=== PATIENT | male | born 1970 | race Hispanic/Latino ===

== ENCOUNTER 2016-12-12 12:21 | Inpatient (IN) | payer MEDICARE, MEDICAID, OTHER ==
[2016-12-12 12:46] VITALS: BMI 26.6
--- NOTE | 2016-12-12 13:21 | ED PDOC ---
Arrival/HPI - General Chief Complaint: Weakness/Neurological Deficit Time Seen by Provider: 12/12/16 12:32 Historian: Patient - History of Present Illness Narrative History of Present Illness (Text): 12/12/16 12:57 Fabian Feliciano is a 46 year old male, whose past medical history includes bipolar, ETOH abuse, hepatitis C, and previous etoh abuse who presents to the ED for right arm and leg weakness for 3 days. Patient reports 3 days ago upon waking up he felt weakness in his right arm and then right leg upon rising, causing him to fall; he reports hitting his head but denies any LOC. Patient also reports right sided neck pain. Patient otherwise denies any headache, chest pain, shortness of breath, nausea, vomiting, abdominal pain, urinary/ bowel changes, vision changes or other associated symptoms. PMD: Cesar Kamara MD Time/Duration: < week (3 days) Symptom Onset: Sudden Activities at Onset: Light Context: Home Past Medical History - Provider Review Nursing Documentation Reviewed: Yes - Infectious Disease Hx of Infectious Diseases: None - Tetanus Immunization Tetanus Immunization: Unknown - Past Medical History Past Medical History: Unable to Obtain - Cardiac Hx Cardiac Disorders: No Hx Hypertension: No - Pulmonary Hx Respiratory Disorders: No Hx Tuberculosis: No - Neurological Hx Neurological Disorder: No HX Cerebrovascular Accident: No Hx Seizures: No - HEENT Hx HEENT Disorder: No - Renal Hx Renal Disorder: No - Endocrine/Metabolic Hx Endocrine Disorders: No - Hematological/Oncological Hx Blood Disorders: No Hx Cancer: No - Integumentary Hx Dermatological Disorder: No - Musculoskeletal/Rheumatological Hx Musculoskeletal Disorders: No Hx Falls: No - Gastrointestinal Hx Gastrointestinal Disorders: Yes (gi bleed) Hx Gastroesophageal Reflux: Yes - Genitourinary/Gynecological Hx Genitourinary Disorders: No Hx Sexually Transmitted Diseases: No - Psychiatric Hx Psychophysiologic Disorder: Yes Hx Anxiety: Yes Hx Bipolar Disorder: Yes Hx Depression: Yes Hx Substance Use: No (pt denies) - Past Surgical History Past Surgical History: Unable to Obtain - Surgical History Hx Gastric Bypass Surgery: Yes Hx Orthopedic Surgery: Yes (left rotator cuff x 3) - Anesthesia Hx Anesthesia: Yes Hx Anesthesia Reactions: Yes (severe vomiting) Hx Malignant Hyperthermia: No - Suicidal Assessment Feels Threatened In Home Enviroment: No Family/Social History - Physician Review Nursing Documentation Reviewed: Yes Family/Social History: No Known Family HX Smoking Status: Heavy Smoker > 10 Cigarettes Daily Hx Alcohol Use: No (pt denies) Hx Substance Use: No (pt denies) Substance used: oxy Allergies/Home Meds Allergies/Adverse Reactions: Allergies No Known Allergies Allergy (Verified 12/12/16 12:45) Home Medications: Home Meds Medication Instructions Recorded Confirmed Fluoxetine HCl [Prozac] 40 mg PO DAILY 12/12/16 12/12/16 Quetiapine Fumarate [Seroquel] 50 mg PO HS 12/12/16 12/12/16 buPROPion XL [Wellbutrin XL] 150 mg PO DAILY 12/12/16 12/12/16 clonazePAM [Klonopin] 1 mg PO TID 12/12/16 12/12/16 Review of Systems - Physician Review All systems were reviewed & negative as marked: Yes - Review of Systems Constitutional: Normal. absent: Fevers Eyes: absent: Vision Changes ENT: Normal Respiratory: Normal. absent: SOB, Cough Cardiovascular: Normal. absent: Chest Pain Gastrointestinal: Normal. absent: Abdominal Pain, Diarrhea, Nausea, Vomiting, Appetite Changes Genitourinary Male: Normal. absent: Dysuria, Frequency, Hematuria, Urinary Output Changes Musculoskeletal: Neck Pain (Right Sided), Other (Right Leg and Arm Weakness; Right Calf Swelling) Skin: Normal Neurological: Focal Weakness. absent: Headache, Dizziness Endocrine: Normal Hemo/Lymphatic: Normal Psychiatric: Normal Physical Exam Vital Signs Reviewed: Yes Vital Signs Temp Pulse Resp BP Pulse Ox 12/12/16 13:00 90 16 147/90 98 12/12/16 12:44 99 F 89 16 147/90 100 Temperature: Afebrile Blood Pressure: Normal Pulse: Regular Respiratory Rate: Normal Appearance: Positive for: Well-Appearing, Non-Toxic, Comfortable Pain Distress: None Mental Status: Positive for: Alert and Oriented X 3 Finger Stick Blood Glucose: 89 - Systems Exam Head: Present: Atraumatic, Normocephalic Pupils: Present: PERRL Extroacular Muscles: Present: EOMI Conjunctiva: Present: Normal Mouth: Present: Moist Mucous Membranes Pharnyx: Present: Normal. No: ERYTHEMA Neck: Present: Normal Range of Motion. No: JVD Respiratory/Chest: Present: Clear to Auscultation, Good Air Exchange. No: Respiratory Distress, Accessory Muscle Use Cardiovascular: Present: Regular Rate and Rhythm, Normal S1, S2. No: Murmurs Abdomen: Present: Normal Bowel Sounds. No: Tenderness, Distention, Peritoneal Signs Upper Extremity: Present: Other (Patient refusing/unable to Elevate Right Arm). No: Edema Lower Extremity: Present: Normal Inspection, Swelling (Right Calf Swelling). No : Edema Neurological: Present: GCS=15, CN II-XII Intact, Speech Normal Skin: Present: Warm, Dry, Normal Color. No: Rashes Psychiatric: Present: Alert, Oriented x 3, Normal Insight, Normal Concentration Medical Decision Making ED Course and Treatment: 12/12/16 12:57 Impression: 46 year old male with right arm and leg weakness for 3 days. Differential Diagnosis include but are not limited to: CVA vs. Peripheral Neurological Etiologies vs. Psychosomatic disorder Plan: -- Head CT -- Chest X-ray -- LE Duplex -- Right Knee -- Labs, UA -- Reassess and disposition Prior Visits: Notes and results from previous visits were reviewed. Patient was last seen in the ED on 06/18/16 unresponsive. Progress Notes: 12/12/16 14:31 As per Dobby Loom Fixer, DVT negative. 12/12/2016 14:19:29 Procedure: CT HEAD WITHOUT CONTRAST. Dictator: ELIAS READ MD Impression: No acute intracranial abnormality. If there is a persistent focal neurologic deficit and an ongoing clinical concern for acute infarction, an MRI of the brain without intravenous contrast would be a more sensitive modality for evaluation of hyperacute/acute ischemic infarction. Mild global parenchymal volume loss advanced for the patient's age. 12/12/16 14:20 Procedure: Right Knee Radiographs. Dictator: ELIAS READ MD Impression: No acute fracture, dislocation or bone destruction. 12/12/2016 14:20 Procedure: Chest X-RAY Dictator: ELIAS READ MD Impression: No active pulmonary disease. 12/12/16 15:37 Patient with noted history. Patient on neuro exam is not elevating right arm but also seemed to avoid his head upon my raising it - NIHSS is 3 (based on R arm weakness) - it is 3 days old; not a tpa candidate. Patient's labs showing rhabdo of cpk >13K - will admit to the hospital for aggressive hydration. Discussed with Dr. Cesar Kamara for admission to his service. - Lab Interpretations Lab Results: 12/12/16 13:20 12/12/16 13:20 Lab Results 12/12/16 13:20: WBC 7.5 D, RBC 4.62, Hgb 13.8 L, Hct 39.9 L, MCV 86.4, MCH 29.9 , MCHC 34.6, RDW 14.9 H, Plt Count 231, MPV 10.4, Gran % 63.8, Lymph % (Auto) 25.3, Davis % (Auto) 9.2 H, Eos % (Auto) 1.6, Baso % (Auto) 0.1, Gran # 4.80, Lymph # 1.9, Davis # 0.7 H, Eos # 0.1, Baso # 0.01, PT 10.7, INR 0.99, APTT 25.0 , Sodium 136, Potassium 3.8, Chloride 100, Carbon Dioxide 28, Anion Gap 12, BUN 14, Creatinine 0.8, Est GFR ( Amer) > 60, Est GFR (Non-Af Amer) > 60, Random Glucose 92, Calcium 9.1, Magnesium 1.8, Total Bilirubin 1.1, AST 690 H, ALT 205 H, Alkaline Phosphatase 65, Lactate Dehydrogenase 2470 H, Total Creatine Kinase 30978 H, CK-MB (CK-2) 22.9 H, CK-MB (CK-2) % 0.2 L, Troponin I < 0.01, Total Protein 7.3, Albumin 3.8, Globulin 3.5, Albumin/Globulin Ratio 1.1 , Triglycerides 89, Cholesterol 143, LDL Cholesterol Direct 82, HDL Cholesterol 35, Lipase 35, Alcohol, Quantitative < 10 I have reviewed the lab results: Yes - RAD Interpretation Narrative RAD Interpretations (Text): 12/12/2016 14:19:29 Procedure: CT HEAD WITHOUT CONTRAST. Dictator: ELIAS READ MD FINDINGS: HEMORRHAGE: No intracranial hemorrhage. BRAIN: Burrell-white matter differentiation is preserved. There is no mass, mass effect or abnormal extra-axial fluid collection. VENTRICLES: There is mild global parenchymal volume loss and proportionate enlargement of the ventricles and cortical sulci, advanced for the patient's age. CALVARIUM: Unremarkable. PARANASAL SINUSES: Predominantly clear. MASTOID AIR CELLS: Predominantly clear. OTHER FINDINGS: None. Impression: No acute intracranial abnormality. If there is a persistent focal neurologic deficit and an ongoing clinical concern for acute infarction, an MRI of the brain without intravenous contrast would be a more sensitive modality for evaluation of hyperacute/acute ischemic infarction. Mild global parenchymal volume loss advanced for the patient's age. 12/12/16 14:20 Procedure: Right Knee Radiographs. Dictator: ELIAS READ MD FINDINGS: BONES: Bone alignment and mineralization are normal. There is no acute fracture or bone destruction. JOINTS: Normal. No osteoarthritis. JOINT EFFUSION: There is a small suprapatellar joint effusion. OTHER FINDINGS: None. Impression: No acute fracture, dislocation or bone destruction. 12/12/2016 14:20 Procedure: Chest X-RAY Dictator: ELIAS READ MD FINDINGS: LUNGS: The lungs are well inflated and clear. PLEURA: No significant pleural effusion identified. No pneumothorax apparent. CARDIOVASCULAR: Normal. OSSEOUS STRUCTURES: Status post left shoulder arthroplasty. VISUALIZED UPPER ABDOMEN: Normal. OTHER FINDINGS: None. Impression: No active pulmonary disease. Radiology Orders: 12/12/16 13:05 HEAD W/O CONTRAST [CT] Stat CHEST TWO VIEWS (PA/LAT) [RAD] Stat 12/12/16 13:07 KNEE W PATELLA RIGHT 3 VIEW [RAD] Stat DUPLEX LOWER EXTRM VEIN RIGHT [US] Stat Wrist Closer: Radiologist - EKG Interpretation EKG Interpretation (Text): 12/12/16 15:40 NSR @ 86; no ST/T changes; normal intervals, normal axis. - Medication Orders Current Medication Orders: Discontinued Medications Sodium Chloride (Sodium Chloride 0.9%) 1,000 mls @ 999 mls/hr IV .Q1H1M STA Stop: 12/12/16 15:34 Last Admin: 12/12/16 15:27 Dose: 999 MLS/HR eMAR Start Stop Document 12/12/16 15:27 [facility] (Rec: 12/12/16 15:28 [facility] [id number]) Intravenous Solution Start Date 12/12/16 Start Time 14:40 End Date 12/12/16 End time 15:40 Total Infusion Time 60 NIHSS Scale ([place]) Time Performed: 12:32 - How Severe is the Stoke Baseline Level of Consciousness: 0=Alert LOC to Questions: 0=Both comments correct LOC to commands: 0=Obeys both correctly Best Gaze: 0=Normal Visual: 0=No visual loss Facial: 0=Normal Motor Arm - Left: 0=No drift Motor Arm - Right: 3=No effort against gravity (falls immediately) Motor Leg - Left: 0=No drift Motor Leg - Right: 0=No drift Limb Ataxia: 0=Absent Sensory: 0=Normal Best Language: 0=No aphasia Dysarthia: 0=Normal articulation Extinction & Inattention (Neglect): 0=Normal, no object Score: 3 Risk Level: Minor Stroke Risk - Scribe Statement Remigio Jimenez Provider Attestation: All medical record entries made by the Haleyibe were at my direction and personally dictated by me. I have reviewed the chart and agree that the record accurately reflects my personal performance of the history, physical exam, medical decision making, and the department course for this patient. I have also personally directed, reviewed, and agree with the discharge instructions and disposition. Disposition/Present on Arrival - Present on Arrival Any Indicators Present on Arrival: No History of DVT/PE: No History of Uncontrolled Diabetes: No Urinary Catheter: No History of Decub. Ulcer: No History Surgical Site Infection Following: None - Disposition Have Diagnosis and Disposition been Completed?: Yes Diagnosis: Rhabdomyolysis, Right arm weakness Disposition: HOSPITALIZED Disposition Time: 14:55 Patient Plan: Admission Patient Problems: Current Active Problems Problem Status Diagnosed Rhabdomyolysis Acute Right arm weakness Acute Condition: FAIR
[2016-12-12 13:22] LABS: ADD MANUAL DIFF? NO
[2016-12-12 13:27] LABS: BASO # 0.01 K/mm3 (0.0-2.0); BASO % 0.1 % (0.0-3.0); EOS # 0.1 (0.0-0.7); EOS % 1.6 % (1.5-5.0); GRAN % 63.8 % (50.0-68.0); HEMATOCRIT 39.9 % (42.0-52.0); LYMPH # 1.9 (1.2-3.4); LYMPH % 25.3 % (22.0-35.0); MEAN CELL VOLUME 86.4 fL (80.0-105.0); MEAN CORPUSCULAR HEMOGLOBIN 29.9 pg (25.0-35.0); MEAN CORPUSCULAR HGB CONC 34.6 g/dl (31.0-37.0); MEAN PLATELET VOLUME 10.4 fl (7.0-11.0); MONO # 0.7 (0.1-0.6); MONO % 9.2 % (1.0-6.0); PLATELET COUNT 231 10^3/uL (120.0-450.0); RED CELL DISTRIBUTION WIDTH 14.9 % (11.5-14.5); WHITE BLOOD COUNT 7.5 10^3/ul (4.5-11.0)
[2016-12-12 13:39] LABS: ALB/GLOB RATIO 1.1 (1.1-1.8); ALKALINE PHOSPHATASE 65 U/L (38-133); ALT/SGPT 205 U/L (7-56); AST/SGOT 690 U/L (15-59); BILIRUBIN,TOTAL 1.1 mg/dL (0.2-1.3); BLOOD UREA NITROGEN 14 mg/dL (7-21); CALCIUM 9.1 mg/dL (8.4-10.5); CARBON DIOXIDE 28 mmol/L (21-33); CHLORIDE 100 mmol/L (98-107); CHOLESTEROL 143 mg/dL (130-200); GFR AFRICAN-AMERICAN > 60; GLUCOSE,RANDOM 92 mg/dL (70-110); LIPASE 35 U/L (23-300); MAGNESIUM 1.8 mg/dL (1.7-2.2); POTASSIUM 3.8 mmol/L (3.6-5.0); SODIUM 136 mmol/L (132-148); TOTAL PROTEIN 7.3 g/dL (5.8-8.3)
[2016-12-12 13:42] LABS: INR 0.99 (0.93-1.08)
[2016-12-12 14:07] LABS: TROPONIN I < 0.01 ng/mL
--- NOTE | 2016-12-12 14:21 | RAD ---
HISTORY: R arm weakness COMPARISON: 12/28/2015 TECHNIQUE: Chest PA and lateral FINDINGS: LUNGS: The lungs are well inflated and clear. PLEURA: No significant pleural effusion identified. No pneumothorax apparent. CARDIOVASCULAR: Normal. OSSEOUS STRUCTURES: Status post left shoulder arthroplasty. VISUALIZED UPPER ABDOMEN: Normal. OTHER FINDINGS: None. IMPRESSION: No active pulmonary disease.
--- NOTE | 2016-12-12 14:21 | CT ---
PROCEDURE: CT HEAD WITHOUT CONTRAST. HISTORY: R arm and R leg weakness COMPARISON: None available. TECHNIQUE: Axial computed tomography images were obtained through the head/brain without intravenous contrast. Radiation dose: Total exam DLP = 846.22 mGy-cm. FINDINGS: HEMORRHAGE: No intracranial hemorrhage. BRAIN: Burrell-white matter differentiation is preserved. There is no mass, mass effect or abnormal extra-axial fluid collection. VENTRICLES: There is mild global parenchymal volume loss and proportionate enlargement of the ventricles and cortical sulci, advanced for the patient's age. CALVARIUM: Unremarkable. PARANASAL SINUSES: Predominantly clear. MASTOID AIR CELLS: Predominantly clear. OTHER FINDINGS: None. IMPRESSION: No acute intracranial abnormality. If there is a persistent focal neurologic deficit and an ongoing clinical concern for acute infarction, an MRI of the brain without intravenous contrast would be a more sensitive modality for evaluation of hyperacute/acute ischemic infarction. Mild global parenchymal volume loss advanced for the patient's age.
--- NOTE | 2016-12-12 14:22 | RAD ---
PROCEDURE: Right Knee Radiographs. HISTORY: R knee pain s/p fall COMPARISON: None. FINDINGS: BONES: Bone alignment and mineralization are normal. There is no acute fracture or bone destruction. JOINTS: Normal. No osteoarthritis. JOINT EFFUSION: There is a small suprapatellar joint effusion. OTHER FINDINGS: None. IMPRESSION: No acute fracture, dislocation or bone destruction.
[2016-12-12] MEDS ORDERED: Sodium Chloride 0.9% 1,000 ML IV STA ×2 (14:34→16:28)
--- NOTE | 2016-12-12 16:30 | US ---
PROCEDURE: Right lower extremity venous US HISTORY: Leg pain and swelling. Evaluate for DVT. PHYSICIAN(S): Evangelista Hawley M.D. TECHNIQUE: Duplex sonography and color-flow Doppler with graded compression were used to evaluate the deep venous system of the right lower extremity. FINDINGS: The visualized deep venous system of the right lower extremity is sonographically normal and compressible. Normal waveforms and augmentation are seen. There is no sonographic evidence for deep venous thrombosis in the visualized segments of the right lower extremity. IMPRESSION: 1. No sonographic evidence for deep venous thrombosis in the visualized segments of the right lower extremity.
[2016-12-12 16:42] LABS: URINE BILIRUBIN NEGATIVE (NEGATIVE); URINE BLOOD NEGATIVE (NEGATIVE); URINE GLUCOSE (UA) NEGATIVE (NEGATIVE); URINE KETONE NEGATIVE (NEGATIVE); URINE LEUKOCYTE ESTERASE NEGATIVE Leu/uL (NEGATIVE); URINE PROTEIN NEGATIVE mg/dL (<30 mg/dL)
[2016-12-12 16:44] LABS: URINE APPEARANCE CLEAR (CLEAR); URINE COLOR YELLOW (YELLOW)
[2016-12-12] MEDS: Sodium Chloride 0.9% 1,000 ML IV SCH (18:45)
[2016-12-12] MEDS ORDERED: Influenza Vaccine 45 MCG/0.5 ml IM ONE (21:00)
[2016-12-12] MEDS ORDERED: Pneumococcal 23-Valent Vaccine IM ONE (21:00)
[2016-12-13] MEDS: Sodium Chloride 0.9% 1,000 ML IV SCH ×3 (05:03→15:31)
[2016-12-13] MEDS: buPROPion 150 mg/24 Hours XL Tab PO SCH (10:24)
[2016-12-13 13:02] LABS: ADD MANUAL DIFF? NO
[2016-12-13 13:06] LABS: BASO # 0.02 K/mm3 (0.0-2.0); BASO % 0.3 % (0.0-3.0); EOS # 0.2 (0.0-0.7); EOS % 2.7 % (1.5-5.0); GRAN # 3.44 (1.4-6.5); HEMATOCRIT 37.5 % (42.0-52.0); LYMPH # 1.8 (1.2-3.4); MEAN CORPUSCULAR HGB CONC 34.9 g/dl (31.0-37.0); MEAN PLATELET VOLUME 10.1 fl (7.0-11.0); MONO # 0.5 (0.1-0.6); PLATELET COUNT 197 10^3/uL (120.0-450.0); RED CELL DISTRIBUTION WIDTH 14.8 % (11.5-14.5); WHITE BLOOD COUNT 5.8 10^3/ul (4.5-11.0)
[2016-12-13 13:15] LABS: ALB/GLOB RATIO 1.2 (1.1-1.8); ALKALINE PHOSPHATASE 49 U/L (38-133); ALT/SGPT 144 U/L (7-56); AST/SGOT 322 U/L (15-59); BILIRUBIN,TOTAL 0.9 mg/dL (0.2-1.3); BLOOD UREA NITROGEN 13 mg/dL (7-21); CALCIUM 8.5 mg/dL (8.4-10.5); CARBON DIOXIDE 27 mmol/L (21-33); CHLORIDE 104 mmol/L (98-107); GFR AFRICAN-AMERICAN > 60; GLUCOSE,RANDOM 116 mg/dL (70-110); POTASSIUM 3.9 mmol/L (3.6-5.0); SODIUM 137 mmol/L (132-148); TOTAL PROTEIN 6.3 g/dL (5.8-8.3)
--- NOTE | 2016-12-13 14:21 | HP ---
HISTORY OF PRESENT ILLNESS: The patient is a 46-year-old male admitted through the Emergency Departm ent on 12/12/2016 with weakness of the right arm and pain involving the right lower extremity after a fall 2-3 days ago. The patient reported head trauma. A CT scan of the head was done, which showed n o acute bleed or infarct. The patient was admitted to the medical/surgical unit for further evaluati on and management. The patient is complaining of pain and discomfort in the right upper arm and shou lder with weakness of the right upper extremity for the past 1-2 days. He is also complaining of javy n in the right knee with difficulty moving the right leg. There is no fever, no chills. The patient was noted on chemistries to have a markedly elevated CPK of 13,392 and is receiving IV fluids for ac andrew rhabdomyolysis. PAST MEDICAL HISTORY: Includes chronic plaque psoriasis, lumbar radiculopathy, degenerative joint di sease. The patient has no significant past surgical history. There is no history of diabetes, hyper tension, heart disease or cancer. CURRENT MEDICATIONS: Include Seroquel 50 mg daily, Prozac 40 mg daily, Wellbutrin-XL 150 mg daily an d Klonopin 1 mg 3 times daily for a history of bipolar disease with depression. SOCIAL HISTORY: The patient reports a 1/2 pack per day history of tobacco use for the past 20-30 yea rs. He denies any history of alcohol or drug use. PHYSICAL EXAMINATION: GENERAL: The patient is a well-developed male, in mild distress secondary to right upper extremity p ain and weakness. VITAL SIGNS: Blood pressure 181/90, pulse 51, temperature 97.9, respiratory rate 19. HEENT: Head is normocephalic, atraumatic. Pupils equal, round, reactive to light. Extraocular move ments intact. NECK: Shows decreased range of motion with some tenderness of the right neck. No discrete masses ar e palpable. There is no carotid bruit or adenopathy. LUNGS: Clear. HEART: Regular rate and rhythm with no murmurs, rubs or gallops. ABDOMEN: Soft, nontender, bowel sounds are normoactive. EXTREMITIES: There is swelling of the right calf with some tenderness and pain on passive flexion of the right ankle. Dorsalis pedis and posterior tibial pulses of the right lower extremity are 1/2 an d 2/2 in the left lower extremity. There is some decreased sensation of the toes of the right foot. There is good capillary refill of the right lower extremity and it is also warm to touch. NEUROLOGIC: The patient is awake and responsive to verbal commands. Right upper extremity motor str ength is 3+/5. Left upper extremity is 5/5. Right lower extremity, there is some weakness in flexio n of the right foot secondary to pain. SKIN: Warm and dry. LABORATORY DATA: WBCs 5.8, hemoglobin 13.1, hematocrit 37.5. Sodium 137, potassium 3.9, chloride 10 2, CO2 27, BUN 13, creatinine 0.7, glucose 116. X-ray of the right knee was negative for fractures. Venous Doppler exam of the lower extremities was also negative for deep vein thrombosis. IMPRESSION: 1. Rule out compartment syndrome of the right lower extremity with acute rhabdomyolysis. 2. Right upper extremity weakness, rule out cervical spinal cord lesion. 3. Degenerative joint disease/lumbar radiculopathy and plaque psoriasis. 4. Bipolar disorder/depression. PLAN: Continue IV fluids. Monitor renal function and CPK. We will obtain stat orthopedic consultat ion to rule out compartment syndrome of the right lower extremity. We will obtain a repeat venous Do ppler to rule out deep venous thrombosis. We will obtain a CT scan of the neck and cervical spine as well as neurologic consult from Dr. Garcia. We will give Toradol IM as well as IV morphine as neede d for pain. Keep patient n.p.o. pending orthopedic evaluation. Cesar Kamara JD, MD cc: [id number] TT: 12/13/2016 14:20:39 en
[2016-12-13] MEDS ORDERED: Lidocaine 1% Inj (20ml) IJ STA (14:35)
--- NOTE | 2016-12-13 14:43 | RAD ---
PROCEDURE: Radiographs of the right tibia and fibula. HISTORY: r/o fracture COMPARISON: None available. TECHNIQUE: Frontal and lateral views obtained. FINDINGS: BONES: There is no acute fracture or bone destruction. Bone alignment and mineralization are normal. JOINT SPACES: Unremarkable. OTHER FINDINGS: None. IMPRESSION: No acute fracture.
--- NOTE | 2016-12-13 14:44 | RAD ---
PROCEDURE: Right Ankle Radiographs. HISTORY: r/o fracture COMPARISON: None FINDINGS: BONES: There is no acute fracture or bone destruction. Bone alignment is normal. There is an os trigonum. JOINTS: Normal. No osteoarthritis. Ankle mortise maintained. Talar dome intact SOFT TISSUES: Normal. OTHER FINDINGS: There is a 7 mm linear density in the deep plantar soft tissues. IMPRESSION: No acute fracture or dislocation. 7 mm linear radiodensity in the deep plantar soft tissues may represent a radiopaque foreign body. Clinical correlation is advised.
[2016-12-13] MEDS: Morphine 2 mg/ml ISec IVP PRN ×2 (15:25→18:58)
[2016-12-13] MEDS ORDERED: Iohexol 350 MG/100 ML VIAL ONE (18:19)
--- NOTE | 2016-12-13 18:31 | CARD ---
APPROVED REPORT EKG Measurement Heart [id number] <Conclusion> Normal sinus rhythm Normal ECG
--- NOTE | 2016-12-13 20:40 | CON ---
DATE: 12/13/2016 The patient is a 46-year-old male with a past medical history of bipolar, alcohol abuse, hepatitis C. Presented to the ER with right arm and leg weakness. The patient reports about 3 days ago, he felt weakness in his right arm and then upon rising, patient had experienced a fall due to weakness in right lower extremity, has full active and passive range of motion. PAST MEDICAL HISTORY: Bipolar disorder, hepatitis C, alcohol abuse. ALLERGIES: No known drug allergies. PHYSICAL EXAMINATION: No pain with passive dorsi and plantar flexions of ankle and toes. The patient's sensation is grossly intact throughout the foot and the right lower leg had 2+ pedal pulses. Patient is able to actively dorsiflex and plantarflex his ankle and toes with minimal discomfort. Full range of motion of the knee. IMAGING: X-rays of the patient's right leg do not show any evidence of fracture or dislocation and also x-ray of the patient's right ankle, no evidence of fracture or dislocation. TESTING: Compartment testing of patient's right lower leg, the patient's anterior compartment pressure is 11, lateral compartment pressure is 5, superficial deep compartment pressure is 30, and patient's superficial deep compartment pressure is 30 and deep posterior pressure is 45. The patient's blood pressure, patient's diastolic pressure currently is 104. ASSESSMENT: A 46-year-old male with right leg fullness and increased pressure, likely secondary to rhabdomyolysis. TREATMENT: I had a detailed discussion with the patient reviewing his history, physical exam, imaging and compartment pressure measurement findings. Currently , patient does not have any neurological deficits. He is able to actively plantarflex and dorsiflex his ankle and toes without any discomfort and his delta P is greater than 30. I had a detailed discussion with the patient at this time. I had offered patient different treatment options of both surgical decompression of the compartments versus continued observation. I reviewed the risks and benefits of both options with the patient. After careful consideration, patient has elected to proceed with nonoperative management of observation. Currently, we will proceed with continued observation, which will consist of continued monitoring, strict monitoring of patient's neurovascular status every 2 hours. We will keep the leg slightly elevated with ice packs to help decrease swelling. If there is any indication of worsening of symptoms, I will take the patient to the operating room for decompression of right lower leg fasciotomies. The patient agrees with the plan and we will follow the patient appropriately. Jc Ocasio MD cc: [id number] TT: 12/13/2016 15:55:52 Confirmation # [id number] Dictation # [id number] en MTDD
[2016-12-13] MEDS ORDERED: Morphine 4 mg/ml ISec IVP PRN (21:00)
[2016-12-14] MEDS: HYDROmorphone 1 mg/ml ISec IVP PRN ×6 (00:45→20:05)
[2016-12-14] MEDS: Sodium Chloride 0.9% 1,000 ML IV SCH ×3 (00:46→23:33)
--- NOTE | 2016-12-14 02:20 | CON ---
DATE: 12/13/2016 SUBJECTIVE: This is a 46-year-old male with a past medical history of alcohol abuse, hepatitis C, bi polar and came to the hospital with right arm and leg weakness for 3 days. 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 I was called to evaluate the patient. PAST MEDICAL HISTORY: As above. SOCIAL HISTORY: Smokes and drinks. PHYSICAL EXAMINATION: VITAL SIGNS: Blood pressure 147/90. HEENT: Normocephalic, atraumatic. NECK: Supple. NEUROLOGIC: Awake, oriented to self. No aphasia. Cranial nerves II through XII were tested. Pupil s reactive. EOM intact. Visual dietrich full. No facial asymmetry. Tongue midline. MOTOR EXAMINATION: Weakness of the right upper extremity and right lower extremity improved. Deep t endon reflexes 1+. Both plantars are downgoing. Sensory appears intact. Cerebellar gait deferred. IMPRESSION: Right upper extremity weakness and possibly cervical radiculopathy versus radial nerve p alsy versus brachial plexus neuropathy. PLAN: CAT scan of the head was done, which was reported negative. Workup is in progress. We will f ollow up and MRI of the cervical spine. Bertrand Garcia MD cc: [id number] TT: 12/14/2016 02:19:18 Confirmation # [id number] Dictation # [id number]
[2016-12-14 06:41] LABS: ADD MANUAL DIFF? NO
[2016-12-14 06:47] LABS: BASO # 0.01 K/mm3 (0.0-2.0); BASO % 0.2 % (0.0-3.0); EOS # 0.1 (0.0-0.7); EOS % 2.7 % (1.5-5.0); GRAN # 3.08 (1.4-6.5); GRAN % 65.2 % (50.0-68.0); HEMATOCRIT 36.3 % (42.0-52.0); LYMPH # 1.1 (1.2-3.4); LYMPH % 22.2 % (22.0-35.0); MEAN CORPUSCULAR HEMOGLOBIN 29.1 pg (25.0-35.0); MEAN CORPUSCULAR HGB CONC 33.9 g/dl (31.0-37.0); MEAN PLATELET VOLUME 10.4 fl (7.0-11.0); MONO # 0.5 (0.1-0.6); MONO % 9.7 % (1.0-6.0); PLATELET COUNT 182 10^3/uL (120.0-450.0); RED CELL DISTRIBUTION WIDTH 14.9 % (11.5-14.5); WHITE BLOOD COUNT 4.7 10^3/ul (4.5-11.0)
[2016-12-14 07:16] LABS: ALB/GLOB RATIO 1.1 (1.1-1.8); ALKALINE PHOSPHATASE 49 U/L (38-133); ALT/SGPT 114 U/L (7-56); AST/SGOT 218 U/L (15-59); BILIRUBIN,TOTAL 0.7 mg/dL (0.2-1.3); BLOOD UREA NITROGEN 11 mg/dL (7-21); CALCIUM 8.2 mg/dL (8.4-10.5); CARBON DIOXIDE 30 mmol/L (21-33); CHLORIDE 104 mmol/L (98-107); GFR AFRICAN-AMERICAN > 60; GLUCOSE,RANDOM 96 mg/dL (70-110); POTASSIUM 3.8 mmol/L (3.6-5.0); SODIUM 140 mmol/L (132-148)
--- NOTE | 2016-12-14 07:29 | CT ---
PROCEDURE: CT Cervical Spine without contrast HISTORY: Neck pain COMPARISON: None available. TECHNIQUE: Axial computed tomography images were obtained of the cervical spine without the use of intravenous contrast. Coronal and sagittal reformatted images were created and reviewed. Radiation dose: Total exam DLP = 601.52 mGy-cm. FINDINGS: VERTEBRAE: No fracture. Normal alignment. No destructive bony lesion. Atlantoaxial articulation and odontoid process are intact. DISCS/SPINAL CANAL/NEURAL FORAMINA: Disc spaces maintained in height. Right paracentral disc protrusion at C5-6 results in mass effect upon the ventral aspect of the thecal sac. PARASPINAL SOFT TISSUES: Unremarkable. OTHER FINDINGS: None. IMPRESSION: No fracture/ dislocation. Right paracentral disc protrudes in C5-6. No additional abnormality. Preliminary interpretation of this examination was reported by [facility] at 7:15 p.m. on 12/13/2016. There is concurrence of this report with the preliminary interpretation.
--- NOTE | 2016-12-14 07:36 | CT ---
PROCEDURE: CT NECK WITH CONTRAST HISTORY: neck pain COMPARISON: None TECHNIQUE: CT of the neck with intravenous contrast. Coronal and sagittal reformats generated. Intravenous contrast dose: 100 mL Omnipaque 350 Radiation dose: DLP 288.29 mGy-cm FINDINGS: NASOPHARYNX: Unremarkable. SUPRAHYOID NECK: Unremarkable oropharynx, oral cavity, parapharyngeal space and retropharyngeal space. INFRAHYOID NECK: Unremarkable larynx, hypopharynx, and supraglottic space. Vocal cords intact. MASS: None. GLANDS: 1.5 cm calculus immediately adjacent to medial aspect right submandibular gland. Normal size gland. Normal parotid glands. Normal left submandibular gland. Normal size thyroid gland, without nodule. LYMPH NODES: Normal. No lymphadenopathy. CERVICAL SPINE: No fracture or focal lesion. VASCULAR STRUCTURES: Unremarkable. OTHER FINDINGS: None. IMPRESSION: 1.5 cm calculus immediately medial to the right submandibular gland, presumably a psi LL length. No evidence of enlargement/inflammation of right submandibular gland. No additional abnormality. Preliminary interpretation of this examination was reported by [facility] at 7:08 p.m. on 12/13/2016.. There is concurrence of this report with the preliminary interpretation.
[2016-12-14] MEDS: Oxycodone/Acetaminophen 5/325 mg Tab PO PRN ×4 (10:14→22:09)
[2016-12-14] MEDS: buPROPion 150 mg/24 Hours XL Tab PO SCH (10:15)
--- NOTE | 2016-12-14 10:18 | CON ---
DATE: 12/14/2016 CHIEF COMPLAINT: Right lower extremity pain. HISTORY OF PRESENT ILLNESS: The patient was seen today by me at the bedside in the morning. He had no acute overnight events. His pain level is same. Is being controlled with Dilaudid medication. T he patient denies increased pain or swelling of the leg. PHYSICAL EXAMINATION: GENERAL: Upon examination, the patient is lying comfortably in bed with no acute distress. EXTREMIT IES: The right lower extremity examination has mild swelling of the calf. Compartments are soft and compressible including the posterior, anterior, and lateral compartments of the leg. Has no pain wi th passive stretch of toes. Palpable distal pulses of the right leg. Sensation is intact through th e dorsum and plantar aspect of the foot to light touch. The patient has active flexion and extension of his knee, ankle, and toes. ASSESSMENT: Right lower extremity swelling. PLAN: I discussed the above findings with the patient and the nursing staff. I recommend continued observation with monitoring of compartments and q. 2 neurovascular checks. At this point, patient is a low indication for surgical intervention. Will continue to monitor. Strict right lower extremity elevation. Sukhwinder Longo M.D. cc: [id number] TT: 12/14/2016 10:17:41 Confirmation # [id number] Dictation # [id number] rianna
--- NOTE | 2016-12-14 13:59 | CT ---
PROCEDURE: CT right shoulder HISTORY: eval right shoulder for rotator cuff tear COMPARISON: Not available TECHNIQUE: 2.5 mm contiguous axial sections were acquired through the right shoulder. Sagittal and coronal images were reformatted from the axial scan. FINDINGS: There is no evidence of fracture. There is mild glenohumeral osteoarthritis. There are no articular erosions. The acromioclavicular articulation is unremarkable. The rotator cuff is grossly intact. However, evaluation with computed tomography is of limited sensitivity and specificity. If there is clinical concern regarding rotator cuff tear, evaluation with magnetic resonance imaging is advised. IMPRESSION: Mild glenohumeral osteoarthritis. No fracture. Grossly intact rotator cuff. However, this examination is of limited sensitivity and specificity for evaluation of rotator cuff tear. Recommend evaluation with magnetic resonance imaging if clinically warranted.
--- NOTE | 2016-12-14 15:19 | US ---
PROCEDURE: Bilateral carotid artery duplex ultrasound HISTORY: Carotid stenosis TIA PHYSICIAN(S): Evangelista Hawley MD. TECHNIQUE: Duplex sonography and color-flow Doppler were used to evaluate the carotid bifurcations and limited segments of the vertebral arteries bilaterally. FINDINGS: There is mild mild smooth hypoechoic plaque noted at the carotid bifurcations bilaterally. The peak systolic velocity in the proximal right internal carotid artery is 103 cm/sec. This corresponds to a 0-19 percent proximal right ICA stenosis. Normal systolic velocities are noted in the proximal right external carotid artery. There is antegrade flow in the right vertebral artery. The peak systolic velocity in the proximal left internal carotid artery is 102 cm/sec. This corresponds to a 0-19 percent proximal left ICA stenosis. Normal systolic velocities are noted in the proximal left external carotid artery. There is antegrade flow in the left vertebral artery. IMPRESSION: 1. Bilateral 0-19% proximal ICA stenoses. 2. Antegrade flow in both vertebral arteries.
--- NOTE | 2016-12-14 16:09 | PN ---
DATE: 12/14/2016 SUBJECTIVE: The patient is sitting up in bed in no acute distress. He complains of persistent right arm weakness. There is decreased discomfort and swelling of the right lower extremity. OBJECTIVE: VITAL SIGNS: Blood pressure 157/93, temperature 97.9, pulse 62, respiratory rate 18. LUNGS: Clear. HEART: Regular rate and rhythm. ABDOMEN: Soft, nontender, bowel sounds normoactive. EXTREMITIES: There is some decreased swelling of the right lower extremity. NEUROLOGIC: Right upper extremity with 3+/5 motor strength without change from previous. The patien t is awake and oriented without focal, sensory or motor deficits. SKIN: Warm and dry. LABORATORY DATA: WBC is 4.7, hemoglobin 12.3, hematocrit 36.3. Sodium 140, potassium 3.8, chloride 104, CO2 of 30, BUN 11, creatinine 0.7, glucose 96. CPK is 2605. IMPRESSION: 1. Acute rhabdomyolysis, rule out secondary to compartment syndrome of the right lower extremity sta tus post injury. 2. Right upper extremity weakness, rule out cervical radiculopathy versus right brachial plexopathy. 3. Degenerative joint disease/lumbar radiculopathy and plaque psoriasis. 4. Bipolar disorder/suppressant. PLAN: Continue IV fluids. Continue neurology followup with Dr. Garcia. Continue orthopedic followu p. Physical therapy and social work for discharge planning. Cesar Kamara JD, MD cc: [id number] TT: 12/14/2016 16:08:45 Confirmation # [id number] Dictation # [id number] sn
--- NOTE | 2016-12-14 17:24 | MRI ---
PROCEDURE: MR CERVICAL SPINE WITHOUT CONTRAST HISTORY: right arm weakness COMPARISON: None available. TECHNIQUE: Multiecho multiplanar sequences were performed through the cervical spine without the use of intravenous contrast. FINDINGS: Normal lordotic curvature. Craniocervical junction unremarkable. Vertebral body heights preserved. No marrow signal abnormality. Normal cervical cord. No paraspinal abnormality. C2-C3: No disc herniation, spinal canal stenosis or neural foraminal narrowing. C3-C4: Small central disc bulging seen without evidence of significant spinal or neural foraminal narrowing. C4-C5: No disc herniation, spinal canal stenosis or neural foraminal narrowing. C5-C6: Small to moderate size disc herniation associated with posterior ligament which resulting mild spinal and [id number]-ws-wfkqhuyj right neural foraminal narrowing. C6-C7: Small osteophyte disc bulging complex without evidence of significant or neural foraminal narrowing C7-T1: Broad-based disc bulging associated with mild spinal stenosis. OTHER FINDINGS: None. IMPRESSION: Small to moderate size disc herniation at C5-C6 associated with mild spinal and erdx-bk-wcyyltwc right neural foraminal narrowing. Small disc bulging at C3-C4, C6-C7 and C7-T1. Mild degenerative disc changes.
--- NOTE | 2016-12-14 20:22 | PN ---
DATE: 12/14/2016 CHIEF COMPLAINT: Right arm weakness and numbness. HISTORY OF PRESENT ILLNESS: This is a 46-year-old man with past medical history of lumbosacral radic ulopathy status post lumbosacral laminectomy, history of degenerative joint disease, history of chronic plaque psoriasis, history of hepatitis C, history of bipolar disorder, depression, who came in because of weakness of right arm. He also reports numbness of the right arm as well. He had a fa ll 2-3 days ago, because he felt unbalanced on his legs and fell on his right side. His CT scan of h is head showed no acute intracranial abnormalities. His carotid Doppler showed 20%-39% proximal ICA stenosis. He had rhabdomyolysis and had difficulty moving his right leg due to pain in his right leg , but currently, he is able to lift up his right leg today without any difficulty. He still cannot l ift up his right arm. His MRI of the cervical spine showed a small to moderate size disk herniation C5-C6 with mild to moderate right neural foraminal narrowing and small disk bulges at C3-C4, C6-C7 an d C7-T1. Neurosurgical consult was placed. CT scan of his upper extremity showed mild glenohumeral osteoarthritis. PAST MEDICAL HISTORY: Chronic plaque psoriasis, lumbosacral radiculopathy, degenerative joint diseas e, history of hepatitis C, history of bipolar disorder and depression. MEDICATIONS: He is on Seroquel, Prozac, Wellbutrin, Klonopin, Percocet currently. SOCIAL HISTORY: He reports half a pack of smoking cigarettes for the past 20-30 years. He denies an y history of any ETOH abuse or illicit drug use at this time. FAMILY HISTORY: Noncontributory. REVIEW OF SYSTEMS: A 14-point review is negative, except the HPI. ALLERGIES: No known drug allergies. PHYSICAL EXAMINATION: VITAL SIGNS: Temperature is 97.6, pulse rate 55, blood pressure of 157/88, respiratory rate of 20, o xygen 100% on room air. GENERAL: The patient is sitting up in bed in no acute distress. HEENT: Atraumatic, normocephalic. PERRLA. Extraocular muscles intact. NECK: Supple, no JVD, no adenopathy noted. LUNGS: Clear to auscultation. No adventitious sounds. HEART: S1, S2, normal rate and rhythm. No murmurs, rubs, or gallops. ABDOMEN: Soft, nontender, nondistended. Bowel sounds present. EXTREMITIES: No clubbing, no cyanosis. Peripheral pulses 2+ felt bilaterally. NEUROLOGIC: The patient is alert, oriented to person, place, month and year. Speech is fluent witho ut any errors. Cranial nerves II through XII are intact. MOTOR: Has right 2/5 right arm weakness, though his lower extremities are intact, as well as left up per extremity. His DTRs are 2+ throughout, except for 1 at the right arm and 1 at both knees bilater ally. He has 1+ at the biceps and triceps and brachioradialis. SENSORY: Decreased light touch and pinprick up to the calves bilaterally. Decreased vibration of th e toes. Decreased sensation in the right arm compared to the left. COORDINATION: Difficult to do irnkxb-sw-hase of the right arm due to right arm weakness, but on the left is intact cuzwbr-mi-qgnd. GAIT: Deferred for now. LABORATORY DATA: Sodium is 140, potassium 3.8, chloride of 104, carbon dioxide of 30, BUN of 11, cre atinine 0.7, random glucose is 96. His CK is 2,605 which has trended down from 13,000. ASSESSMENT AND PLAN: This is a 46-year-old man with a past medical history of hepatitis C, chronic p laque psoriasis, lumbosacral radiculopathy, degenerative joint disease, history of depression a nd bipolar disorder, who came in status post fall falling on his right side, developed rhabdomyolysis and couldn't move his right lower extremity as much, found to have a possible compartment syndrome. He is unable to move his right arm and has weakness and numbness of his right arm. His MRI of the c ervical spine showed a small to moderate size disk herniation C5-C6 with mild to moderate right neura l foraminal narrowing with small disk bulges at C3-C4, C6-C7, C7-T1 and mild disk degenerative diseas e. I feel like his overall right upper extremity weakness could be secondary to either to [place]- [place] syndrome since he had a history of a fall on the right side versus right C5-C6 disk herniation since his reflexes are down. At this time, recommend: 1. Neurosurgical evaluation. 2. We will put him on dexamethasone 4 mg IV q.6 for now until neurosurgery wants to adjust it or sto p it. 3. Could consider gabapentin 300 mg p.o. at bedtime for neuropathic pain. 4. Get physical and occupational therapy. Thank you for this followup. Bobby Garcia MD cc: [id number] TT: 12/14/2016 20:21:57 Confirmation # [id number] Dictation # [id number] mn
[2016-12-14] MEDS: Dexamethasone 4 mg/1 ml IV SCH (23:24)
[2016-12-15] MEDS: HYDROmorphone 1 mg/ml ISec IVP PRN ×6 (00:10→20:15)
[2016-12-15] MEDS: Oxycodone/Acetaminophen 5/325 mg Tab PO PRN ×2 (02:13→06:08)
[2016-12-15] MEDS: Sodium Chloride 0.9% 1,000 ML IV SCH ×3 (05:29→17:12)
[2016-12-15] MEDS: Dexamethasone 4 mg/1 ml IV SCH ×4 (06:08→23:29)
--- NOTE | 2016-12-15 06:25 | CON ---
DATE: 12/14/2016 REASON FOR CONSULTATION: Inability to move right arm. HISTORY OF PRESENT ILLNESS: The patient is a [id number] gentleman who states that Wednesday night he fell asleep or passed out and when he awoke morning he could not feel anything in his ri ght arm. He states he was unable to move it as well. He went to get out of bed and fell because he could not feel anything in his right leg. Fearing he had a stroke, he was brought to the Emergency [facility] and was admitted. His right leg has improved, although it remains swollen, but he has had no imp rovement that he can discern in his right upper extremity. He has no complaints of neck pain, no los s of bowel or bladder control. He denies any significant past medical history. ALLERGIES: He has no known allergies. PAST SURGICAL HISTORY: Significant for a left rotator cuff repair last July, as well as 2 spinal fusions done back in 2009 or so. PHYSICAL EXAMINATION: MUSCULOSKELETAL: He has full and pain free range of motion of his cervical spine with slight decreas e of right lateral rotation compared to the left, but the left he can do a good 60 degrees. He can m ove his left upper extremity fully and actively. NEUROLOGIC: Completely intact on the left side. On the right side, he cannot abduct his shoulder an d if I passively abduct it to 90 degrees, he cannot maintain it there at all and I do not see any obv ious muscle contraction of his deltoids at all. He cannot actively bend his elbow, although he has g ood contraction of his biceps when he tries to do so and he does have a little bit of strength agains t resistance. He can extend his wrist, but again it is weak against resistance. He has better stren gth of his triceps. His sensory is decreased to light touch in the radial forearm and over his right index finger, but is the same as the left side to light touch over his middle finger and his little finger as well as the ulnar forearm. He has good distal pulses. 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 NEUROLOGIC: He is intact in his right lower extremity. The gentleman had a CAT scan done which reportedly showed a disk protrusion at C5-C6. He is currentl y getting an MRI done. 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 He probably had a compression injury to his plexus that has lef t him with residual deficits. Presuming that the temporary loss of feeling and strength in the right lower extremity as well as the swelling was just due to it being bent up and compressed as well, not as compressed as his neck and right arm were. We will get the MRI as mentioned to rule out any disk or spinal pathology there, but again his exam would really go along with something peripheral to the spinal cord centrally and would suggest neurology followup and OT and let them work with him and obs erve and splint as needed. Probably they could do an EMG nerve conduction study in 3 weeks if there is no clinical improvement at that time. Thank you for allowing me to participate in the care of your patient. Amari Rodriguez MD cc: [id number] TT: 12/15/2016 06:25:16 Confirmation # [id number] Dictation # [id number] tn
[2016-12-15] MEDS: buPROPion 150 mg/24 Hours XL Tab PO SCH (10:13)
[2016-12-15] MEDS: Oxycodone/Acetaminophen 10/325 mg Tab PO PRN ×4 (10:13→23:29)
--- NOTE | 2016-12-15 14:35 | CP.PCM.PN ---
Subjective - Date & Time of Evaluation Date of Evaluation: 12/15/16 Time of Evaluation: 14:29 - Subjective Subjective: SPINE Pt resting in bed. Still c/o inability to move R arm. R leg better. Still no active contraction of deltoids. + biceps contraction, 2/5; wrist extensors 3+/5; triceps 3+/4-//5. Sensation intact. MRI reviewed. Shows small disc protrusion towards right at C5-6 but no signif pathology above that. Most likely plexopathy, primarily C4. His arm was "" when he awoke morning, BEFORE he fell, so HNP likely not etiology of findings. Agree w PT/OT and short term rehab placement. Objective - Vital Signs/Intake and Output Vital Signs (last 24 hours): Temp Pulse Resp BP Pulse Ox 97.8 F 59 L 19 166/96 H 96 12/15/16 06:00 12/15/16 06:00 12/15/16 06:00 12/15/16 06:00 12/15/16 06:00 Intake and Output: 12/15/16 12/15/16 06:59 18:59 Intake Total 600 Balance 600 - Medications Medications: Current Medications Bupropion HCl (Wellbutrin Xl) 150 mg PO DAILY [facility] Last Admin: 12/15/16 10:13 Dose: 150 mg Clonazepam (Klonopin) 1 mg PO TID [facility] PRN Reason: Protocol Last Admin: 12/15/16 14:10 Dose: 1 mg Dexamethasone (Decadron Inj) 4 mg IV Q6 [facility] Last Admin: 12/15/16 11:47 Dose: 4 mg Fluoxetine HCl (Prozac) 40 mg PO DAILY [facility] Last Admin: 12/15/16 10:13 Dose: 40 mg Gabapentin (Neurontin) 300 mg PO HS [facility] PRN Reason: Protocol Last Admin: 12/14/16 21:37 Dose: 300 mg Hydromorphone HCl (Dilaudid) 1 mg IVP Q4H PRN PRN Reason: Pain, moderate (4-7) Last Admin: 12/15/16 11:47 Dose: 1 mg Sodium Chloride (Sodium Chloride 0.9%) 1,000 mls @ 100 mls/hr IV .Q10H [facility] Last Admin: 12/15/16 10:49 Dose: 100 mls/hr Ketorolac Tromethamine (Toradol) 15 mg IM Q6 [facility] Stop: 12/17/16 17:52 Last Admin: 12/15/16 11:47 Dose: 15 mg Nicotine (Nicoderm Cq) 1 patch TD DAILY [facility] Last Admin: 12/15/16 10:14 Dose: 1 patch Oxycodone/Acetaminophen (Percocet 10/325 Mg Tab) 1 tab PO Q4H PRN PRN Reason: Pain, moderate (4-7) Last Admin: 12/15/16 14:10 Dose: 1 tab Quetiapine Fumarate (Seroquel) 50 mg PO HS [facility] PRN Reason: Protocol Last Admin: 12/14/16 21:37 Dose: 50 mg - Labs Labs: 12/14/16 05:45 12/14/16 05:45 PT 10.7 Seconds (9.9-11.8) 12/12/16 13:20 INR 0.99 (0.93-1.08) 12/12/16 13:20 APTT 25.0 Seconds (23.7-30.8) 12/12/16 13:20
--- NOTE | 2016-12-15 16:00 | CP.PCM.PN ---
Subjective - Date & Time of Evaluation Date of Evaluation: 12/15/16 Time of Evaluation: 14:15 - Subjective Subjective: Patient: PEACE ENGEL [facility] #:[id number] Unit: [id number] : 1970 Loc: 3RNO Room/Bed: 361-02 Age/Sex: 46 / M ADM Status: ADM IN ADM Date: DIS Date: Progress note: DATE: 12/14/2016 CHIEF COMPLAINT: Right arm weakness and numbness. SUBJECTIVE: He still cannot lift up his right arm. His MRI of the cervical spine showed a small to moderate size disk herniation C5-C6 with mild to moderate right neural foraminal narrowing and small disk bulges at C3-C4, C6-C7 and C7-T1. Neurosurgical evaluation noted and agree. He needs acute rehab, but patient does not want to do it despite explaining him the reason for him to improve his right arm weakness. PAST MEDICAL HISTORY: Chronic plaque psoriasis, lumbosacral radiculopathy, degenerative joint disease, history of hepatitis C, history of bipolar disorder and depression. MEDICATIONS: He is on Seroquel, Prozac, Wellbutrin, Klonopin, Percocet currently. SOCIAL HISTORY: He reports half a pack of smoking cigarettes for the past 20- 30 years. He denies any history of any ETOH abuse or illicit drug use at this time. FAMILY HISTORY: Noncontributory. REVIEW OF SYSTEMS: A 14-point review is negative, except the HPI. ALLERGIES: No known drug allergies. PHYSICAL EXAMINATION: VITAL SIGNS: Reviewed. GENERAL: The patient is sitting up in bed in no acute distress. HEENT: Atraumatic, normocephalic. PERRLA. Extraocular muscles intact. NECK: Supple, no JVD, no adenopathy noted. LUNGS: Clear to auscultation. No adventitious sounds. HEART: S1, S2, normal rate and rhythm. No murmurs, rubs, or gallops. ABDOMEN: Soft, nontender, nondistended. Bowel sounds present. EXTREMITIES: No clubbing, no cyanosis. Peripheral pulses 2+ felt bilaterally. NEUROLOGIC: The patient is alert, oriented to person, place, month and year. Speech is fluent without any errors. Cranial nerves II through XII are intact. MOTOR: Has right 2/5 right arm weakness, though his lower extremities are intact, as well as left upper extremity. His DTRs are 2+ throughout, except for 1 at the right arm and 1 at both knees bilaterally. He has 1+ at the biceps and triceps and brachioradialis. SENSORY: Decreased light touch and pinprick up to the calves bilaterally. Decreased vibration of the toes. Decreased sensation in the right arm compared to the left. COORDINATION: Difficult to do [id number] of the right arm due to right arm weakness, but on the left is intact [id number]. GAIT: Deferred for now. LABORATORY DATA: Reviewed. ASSESSMENT AND PLAN: This is a 46-year-old man with a past medical history of hepatitis C, chronic plaque psoriasis, lumbosacral radiculopathy, degenerative joint disease, history of depression and bipolar disorder, who came in status post fall falling on his right side, developed rhabdomyolysis and couldn't move his right lower extremity as much, found to have a possible compartment syndrome. He is unable to move his right arm and has weakness and numbness of his right arm. His MRI of the cervical spine showed a small to moderate size disk herniation C5 -C6 with mild to moderate right neural foraminal narrowing with small disk bulges at C3-C4, C6-C7, C7-T1 and mild disk degenerative disease. I feel like his overall right upper extremity weakness could be secondary to either to [place] syndrome Vs. Plexopathy at C4. At this time, recommend: 1. ACUTE physical therapy and outpatient EMG/NCV of upper extremities to assess plexopathy in 6-8 weeks. 2. Taper down his steroids. 3. Could consider gabapentin 300 mg p.o. at bedtime for neuropathic pain. 4. Follow up with a Neurologist as outpatient. Thank you for this followup. Bobby Garcia MD Objective - Vital Signs/Intake and Output Vital Signs (last 24 hours): Temp Pulse Resp BP Pulse Ox 97.8 F 59 L 19 166/96 H 96 12/15/16 06:00 12/15/16 06:00 12/15/16 06:00 12/15/16 06:00 12/15/16 06:00 Intake and Output: 12/15/16 12/15/16 06:59 18:59 Intake Total 600 Balance 600 - Medications Medications: Current Medications Bupropion HCl (Wellbutrin Xl) 150 mg PO DAILY [facility] Last Admin: 12/15/16 10:13 Dose: 150 mg Clonazepam (Klonopin) 1 mg PO TID [place] PRN Reason: Protocol Last Admin: 12/15/16 14:10 Dose: 1 mg Dexamethasone (Decadron Inj) 4 mg IV Q6 [facility] Last Admin: 12/15/16 11:47 Dose: 4 mg Fluoxetine HCl (Prozac) 40 mg PO DAILY [facility] Last Admin: 12/15/16 10:13 Dose: 40 mg Gabapentin (Neurontin) 300 mg PO HS [facility] PRN Reason: Protocol Last Admin: 12/14/16 21:37 Dose: 300 mg Hydromorphone HCl (Dilaudid) 1 mg IVP Q4H PRN PRN Reason: Pain, moderate (4-7) Last Admin: 12/15/16 11:47 Dose: 1 mg Sodium Chloride (Sodium Chloride 0.9%) 1,000 mls @ 100 mls/hr IV .Q10H [facility] Last Admin: 12/15/16 10:49 Dose: 100 mls/hr Ketorolac Tromethamine (Toradol) 15 mg IM Q6 [facility] Stop: 12/17/16 17:52 Last Admin: 12/15/16 11:47 Dose: 15 mg Nicotine (Nicoderm Cq) 1 patch TD DAILY [facility] Last Admin: 12/15/16 10:14 Dose: 1 patch Oxycodone/Acetaminophen (Percocet 10/325 Mg Tab) 1 tab PO Q4H PRN PRN Reason: Pain, moderate (4-7) Last Admin: 12/15/16 14:10 Dose: 1 tab Quetiapine Fumarate (Seroquel) 50 mg PO HS [facility] PRN Reason: Protocol Last Admin: 12/14/16 21:37 Dose: 50 mg - Labs Labs: 12/14/16 05:45 12/14/16 05:45 PT 10.7 Seconds (9.9-11.8) 12/12/16 13:20 INR 0.99 (0.93-1.08) 12/12/16 13:20 APTT 25.0 Seconds (23.7-30.8) 12/12/16 13:20
[2016-12-16 00:16] VITALS: TEMP 98.1
--- NOTE | 2016-12-16 00:53 | PN ---
DATE: 12/15/2016 SUBJECTIVE: The patient is lying in bed in no acute distress. His right arm weakness is without wang nge. There is decreased pain and swelling of the right lower extremity. OBJECTIVE: VITAL SIGNS: Blood pressure 147/86, temperature 97.2, pulse 63, respiratory rate 20. LUNGS: Clear. HEART: Regular rate and rhythm. ABDOMEN: Soft, nontender, bowel sounds are normoactive. EXTREMITIES: There is minimal swelling of the right lower extremity. Right upper extremity is 3+/5 motor strength in flexion and extension without change from previous. NEUROLOGIC: The patient is awake and oriented. SKIN: Warm and dry. IMPRESSION: 1. Acute rhabdomyolysis secondary to muscle injury right lower extremity. 2. Right upper extremity weakness, probably secondary to right brachial plexopathy. 3. Degenerative joint disease/lumbar radiculopathy and plaque psoriasis. 4. Bipolar disorder/depression. PLAN: Continue neurology followup with Dr. Garcia. Orthopedic followup is appreciated. Physical th erapy and social work for discharge planning. Cesar Kamara JD, MD cc: [id number] TT: 12/16/2016 00:52:35 Confirmation # [id number] Dictation # [id number] benjamin
[2016-12-16] MEDS: Sodium Chloride 0.9% 1,000 ML IV SCH ×2 (03:18→12:34)
[2016-12-16] MEDS: HYDROmorphone 1 mg/ml ISec IVP PRN ×3 (03:57→12:28)
[2016-12-16] MEDS: Dexamethasone 4 mg/1 ml IV SCH ×2 (05:18→12:29)
[2016-12-16] MEDS: Oxycodone/Acetaminophen 10/325 mg Tab PO PRN ×2 (06:16→10:54)
[2016-12-16 06:58] LABS: ADD MANUAL DIFF? NO
[2016-12-16 07:09] LABS: GRAN # 6.83 (1.4-6.5); GRAN % 83.5 % (50.0-68.0); HEMATOCRIT 35.8 % (42.0-52.0); LYMPH % 11.7 % (22.0-35.0); MEAN CORPUSCULAR HEMOGLOBIN 29.5 pg (25.0-35.0); MEAN CORPUSCULAR HGB CONC 34.6 g/dl (31.0-37.0); MEAN PLATELET VOLUME 10.6 fl (7.0-11.0); MONO # 0.4 (0.1-0.6); MONO % 4.8 % (1.0-6.0); PLATELET COUNT 226 10^3/uL (120.0-450.0); RED CELL DISTRIBUTION WIDTH 14.7 % (11.5-14.5); WHITE BLOOD COUNT 8.2 10^3/ul (4.5-11.0)
[2016-12-16 07:15] LABS: ALB/GLOB RATIO 1.1 (1.1-1.8); ALKALINE PHOSPHATASE 55 U/L (38-133); ALT/SGPT 93 U/L (7-56); AST/SGOT 92 U/L (15-59); BILIRUBIN,TOTAL 0.7 mg/dL (0.2-1.3); BLOOD UREA NITROGEN 12 mg/dL (7-21); CALCIUM 8.9 mg/dL (8.4-10.5); CARBON DIOXIDE 28 mmol/L (21-33); CHLORIDE 103 mmol/L (98-107); GFR AFRICAN-AMERICAN > 60; GLUCOSE,RANDOM 123 mg/dL (70-110); SODIUM 138 mmol/L (132-148); TOTAL PROTEIN 6.5 g/dL (5.8-8.3)
[2016-12-16 08:35] VITALS: BP 143/89; RESP 20; O2SAT 97
[2016-12-16] MEDS: buPROPion 150 mg/24 Hours XL Tab PO SCH (09:37)
--- NOTE | 2016-12-16 15:11 | DS ---
HOSPITAL COURSE: The patient is a 46-year-old male admitted through the Emergency Department on 11/19 in acute rhabdomyolysis due to an injury sustained to the right leg. He also was complaining of weakness of the right upper extremity. He was seen in consultation by Dr. Garcia for neurology as well as orthopedics, Dr. Rodriguez. He was evaluated for compartment syndrome and was observed with n o progression of symptoms or weakness of his right lower extremity. The patient is medically stable for discharge at the present time. He will attend outpatient rehabilitation for the weakness of his right arm which is improving and presumed secondary to a brachial plexopathy. PHYSICAL EXAMINATION: VITAL SIGNS: Blood pressure 143/89, temperature 98.1, pulse 52, respiratory rate 20. LUNGS: Clear. HEART: Regular rate and rhythm. ABDOMEN: Soft, nontender, bowel sounds are normoactive. EXTREMITIES: Without cyanosis, clubbing, or edema. NEUROLOGIC: The patient has 4/5 motor strength of the right upper extremity. All other, 5/5. SKIN: Warm and dry. IMPRESSION: 1. Acute rhabdomyolysis secondary to muscular injury of the right lower extremity. 2. Right brachial plexopathy. 3. Degenerative joint disease/lumbar radiculopathy and plaque psoriasis. 4. Bipolar disorder/depression. PLAN: The patient will be discharged to home in stable condition on the following medications: Sero quel 50 mg daily, Prozac 40 mg daily, Wellbutrin-XL 150 mg daily, Klonopin 1 mg 3 times daily, and Pe rcocet 10/325 q. 6 hours. The patient will be maintained on a regular diet, activities ad libitum. He will undergo outpatient rehabilitation and follow up in the office in the next 1-2 weeks. Cesar Kamara JD, MD cc: [id number] TT: 12/16/2016 15:10:37 ks
[2016-12-16 15:39] VITALS: PULSE 85
== END 2016-12-16 15:50 | disposition home or self-care (01) | DRG 558 ==
LOC: ED 12:21 → ERH 14:56 → 3RNO 17:05
PROVIDERS: ADMIT Internal Medicine; ATTEND Internal Medicine
DX: M62.82 Rhabdomyolysis (principal); S09.90XA Unspecified injury of head, initial encounter; G54.0 Brachial plexus disorders; I65.29 Occlusion and stenosis of unspecified carotid artery; G54.5 Neuralgic amyotrophy; M50.21 Other cervical disc displacement, high cervical region; M50.23 Other cervical disc displacement, cervicothoracic region; M50.222 Other cervical disc displacement at C5-C6 level; B18.2 Chronic viral hepatitis C; F31.9 Bipolar disorder, unspecified; K21.9 Gastro-esophageal reflux disease without esophagitis; L40.0 Psoriasis vulgaris; M19.019 Primary osteoarthritis, unspecified shoulder; M50.223 Other cervical disc displacement at C6-C7 level; M54.16 Radiculopathy, lumbar region; Z79.899 Other long term (current) drug therapy; Z87.891 Personal history of nicotine dependence; Z98.84 Bariatric surgery status; R40.2412 Glasgow coma scale score 13-15, at arrival to emergency department; M25.469 Effusion, unspecified knee; M54.12 Radiculopathy, cervical region; S54.21XA Injury of radial nerve at forearm level, right arm, initial encounter

== ENCOUNTER 2017-01-13 14:45 | Emergency (ER) | payer MEDICARE, MEDICAID, OTHER ==
[2017-01-13 14:54] VITALS: BMI 25.8
[2017-01-13] MEDS ORDERED: Sodium Chloride 0.9% 500 ML IV STA (14:57)
--- NOTE | 2017-01-13 15:17 | ED PDOC ---
Arrival/HPI - General Chief Complaint: Medical Clearance Time Seen by Provider: 01/13/17 14:57 Historian: Patient, EMS - History of Present Illness Narrative History of Present Illness (Text): 01/13/17 15:16 46 year old male brought in by ambulance for drug overdose on 10 mg Clonopine, unknown dose, and 4 bags of heroin. Patient is a poor historian. Patient is angry and states he does not want to be here. No other complaints at this time. PMD: Dr. Cesar Kamara Time/Duration: Prior to Arrival Symptom Onset: Sudden Symptom Course: Unchanged Associated Symptoms (Text): None Past Medical History - Provider Review Nursing Documentation Reviewed: Yes - Infectious Disease Hx of Infectious Diseases: None - Tetanus Immunization Tetanus Immunization: Unknown - Past Medical History Past Medical History: Unable to Obtain - Cardiac Hx Cardiac Disorders: No Hx Hypertension: No - Pulmonary Hx Respiratory Disorders: Yes (SMOKES CIGARETTES) Hx Tuberculosis: No - Neurological HX Cerebrovascular Accident: No - HEENT Hx HEENT Disorder: No - Renal Hx Renal Disorder: No - Endocrine/Metabolic Hx Endocrine Disorders: No - Hematological/Oncological Hx Blood Disorders: No Hx Cancer: No - Integumentary Hx Dermatological Disorder: Yes Hx Psoriasis: Yes - Musculoskeletal/Rheumatological Hx Musculoskeletal Disorders: Yes (SHOULDER INJURY-LEFT ROTATOR CUFF X 3) Hx Back Pain: Yes Hx Falls: Yes - Gastrointestinal Hx Gastrointestinal Disorders: Yes (gi bleed) Hx Gastroesophageal Reflux: Yes - Genitourinary/Gynecological Hx Genitourinary Disorders: No Hx Sexually Transmitted Diseases: No - Psychiatric Hx Psychophysiologic Disorder: Yes Hx Anxiety: Yes Hx Bipolar Disorder: Yes Hx Depression: Yes Hx Substance Use: Yes (heroin) - Past Surgical History Past Surgical History: Unable to Obtain - Surgical History Hx Gastric Bypass Surgery: Yes Hx Orthopedic Surgery: Yes (left rotator cuff x 3) - Anesthesia Hx Anesthesia: Yes Hx Anesthesia Reactions: Yes (severe vomiting) Hx Malignant Hyperthermia: No - Suicidal Assessment Feels Threatened In Home Enviroment: No Family/Social History - Physician Review Nursing Documentation Reviewed: Yes Family/Social History: Unknown Family HX Smoking Status: Current Some Days Smoker Hx Alcohol Use: Yes (H/O ETOH ABUSE LAST DRANK [address] [facility]) Hx Substance Use: Yes (heroin) Substance used: oxy Allergies/Home Meds Allergies/Adverse Reactions: Allergies No Known Allergies Allergy (Verified 12/12/16 20:41) Home Medications: Home Meds Medication Instructions Recorded Confirmed Fluoxetine HCl [Prozac] 40 mg PO DAILY 12/12/16 12/12/16 Quetiapine Fumarate [Seroquel] 50 mg PO HS 12/12/16 12/12/16 buPROPion XL [Wellbutrin XL] 150 mg PO DAILY 12/12/16 12/12/16 clonazePAM [Klonopin] 1 mg PO TID 12/12/16 12/12/16 Review of Systems - Review of Systems Systems not reviewed;Unavailable: Other (Angry, does not want to be here) Respiratory: absent: SOB Cardiovascular: absent: Chest Pain Physical Exam Vital Signs Reviewed: Yes Vital Signs Temp Pulse Resp BP Pulse Ox 01/13/17 18:40 74 16 127/79 97 01/13/17 16:20 80 14 120/77 96 01/13/17 15:19 98.6 F 01/13/17 15:10 98.0 F 01/13/17 14:53 90 13 128/79 96 Temperature: Afebrile Blood Pressure: Normal Pulse: Regular Respiratory Rate: Normal Appearance: Positive for: Well-Appearing, Non-Toxic, Comfortable Pain Distress: None Mental Status: Positive for: other (Awake, answering questions) - Systems Exam Head: Present: Atraumatic, Normocephalic Pupils: Present: PERRL (3 mm) Extroacular Muscles: Present: EOMI Conjunctiva: Present: Normal Mouth: Present: Moist Mucous Membranes Neck: Present: Normal Range of Motion Respiratory/Chest: Present: Clear to Auscultation, Good Air Exchange. No: Respiratory Distress, Accessory Muscle Use Cardiovascular: Present: Regular Rate and Rhythm, Normal S1, S2. No: Murmurs Abdomen: Present: Normal Bowel Sounds. No: Tenderness, Distention, Peritoneal Signs Back: Present: Normal Inspection Upper Extremity: Present: Normal Inspection. No: Cyanosis, Edema Lower Extremity: Present: Normal Inspection. No: Edema Neurological: Present: GCS=15, CN II-XII Intact, Speech Normal Skin: Present: Warm, Dry, Normal Color. No: Rashes Psychiatric: Present: Alert, Normal Concentration Medical Decision Making ED Course and Treatment: Impression: 46 year old male presents after overdose with 10 mg Clonopine, unknown dose and 4 bags of heroin. Differential Diagnosis include but are not limited to: Suspected overdose with possible suicidal ideation Plan: -- EKG, Chest X-ray -- Haldol -- Labs -- Reassess and disposition Prior Visits: Notes and results from previous visits were reviewed. Patient last seen in ED on 12/12/16 for right arm/leg weakness and admitted for rhabdomyolysis, right arm weakness. Progress Notes: 01/13/17 18:59 Patient signed out to Dr. Mckeon to f/u sobriety and PES evaluation. - Lab Interpretations Lab Results: 01/13/17 14:50 01/13/17 14:50 Lab Results 01/13/17 14:55: POC Glucose (mg/dL) 91 01/13/17 14:50: Alcohol, Quantitative < 10 01/13/17 14:50: Salicylates < 1 L, Acetaminophen < 10.0 L 01/13/17 14:50: Sodium 140, Potassium 4.1, Chloride 102, Carbon Dioxide 32, Anion Gap 10, BUN 11, Creatinine 0.8, Est GFR ( Amer) > 60, Est GFR (Non- Af Amer) > 60, Random Glucose 83, Calcium 8.7, Total Bilirubin 0.5, AST 67 H, ALT 74 H, Alkaline Phosphatase 56, Total Protein 6.9, Albumin 4.0, Globulin 2.9 , Albumin/Globulin Ratio 1.4 01/13/17 14:50: WBC 4.1 L D, RBC 4.17, Hgb 12.7 L, Hct 38.0 L, MCV 91.1, MCH 30.5, MCHC 33.4, RDW 15.0 H, Plt Count 173, MPV 10.1, Gran % 60.5, Lymph % (Auto ) 26.3, [place] % (Auto) 10.5 H, Eos % (Auto) 2.2, Baso % (Auto) 0.5, Gran # 2.48, Lymph # 1.1 L, [place] # 0.4, Eos # 0.1, Baso # 0.02 - RAD Interpretation Narrative RAD Interpretations (Text): Chest X-ray Free Lance Artist: Natalie Cruz MD IMPRESSION: No definite interval pathology noted. Radiology Orders: 01/13/17 14:58 CHEST PORTABLE [RAD] Stat Wool Handler: Radiologist - EKG Interpretation EKG Interpretation (Text): EKG shows NSR at 87 BPM with normal axis, normal intervals, no ST elevations, with no change from prior EKG. Interpreted by me. Interpreted by ED Physician: Yes Type: 12 lead EKG - Medication Orders Current Medication Orders: Discontinued Medications Haloperidol Lactate (Haldol) 5 mg IM STAT STA Stop: 01/13/17 14:58 Last Admin: 01/13/17 15:00 Dose: 5 mg Sodium Chloride (Sodium Chloride 0.9%) 500 mls @ 1,000 mls/hr IV .Q30M STA Stop: 01/13/17 15:26 Last Admin: 01/13/17 15:00 Dose: 1,000 mls/hr - Scribe Statement The provider has reviewed the documentation as recorded by the Herlinda Gardner Provider Scribe Attestation: All medical record entries made by the Haleyibmily were at my direction and personally dictated by me. I have reviewed the chart and agree that the record accurately reflects my personal performance of the history, physical exam, medical decision making, and the department course for this patient. I have also personally directed, reviewed, and agree with the discharge instructions and disposition. Disposition/Present on Arrival - Present on Arrival Any Indicators Present on Arrival: No History of DVT/PE: No History of Uncontrolled Diabetes: No Urinary Catheter: No History of Decub. Ulcer: No History Surgical Site Infection Following: None - Disposition Have Diagnosis and Disposition been Completed?: Yes Diagnosis: Opiate overdose, Drug overdose, multiple drugs Disposition Time: 19:00 Condition: FAIR
[2017-01-13 15:18] LABS: ADD MANUAL DIFF? NO
[2017-01-13 15:19] VITALS: TEMP 98.6
--- NOTE | 2017-01-13 15:28 | RAD ---
HISTORY: overdose COMPARISON: 12/12/2016 FINDINGS: LUNGS: No consolidation. Pulmonary vasculature appears top-normal PLEURA: No significant pleural effusion identified, no pneumothorax apparent. CARDIOVASCULAR: Normal. OSSEOUS STRUCTURES: Left shoulder prosthesis unchanged VISUALIZED UPPER ABDOMEN: Normal. OTHER FINDINGS: None. IMPRESSION: No definite interval pathology noted
[2017-01-13 15:31] LABS: BASO # 0.02 K/mm3 (0.0-2.0); BASO % 0.5 % (0.0-3.0); EOS # 0.1 (0.0-0.7); EOS % 2.2 % (1.5-5.0); GRAN # 2.48 (1.4-6.5); GRAN % 60.5 % (50.0-68.0); LYMPH # 1.1 (1.2-3.4); LYMPH % 26.3 % (22.0-35.0); MEAN CELL VOLUME 91.1 fL (80.0-105.0); MEAN CORPUSCULAR HEMOGLOBIN 30.5 pg (25.0-35.0); MEAN CORPUSCULAR HGB CONC 33.4 g/dl (31.0-37.0); MEAN PLATELET VOLUME 10.1 fl (7.0-11.0); MONO # 0.4 (0.1-0.6); MONO % 10.5 % (1.0-6.0); PLATELET COUNT 173 10^3/uL (120.0-450.0); WHITE BLOOD COUNT 4.1 10^3/ul (4.5-11.0)
[2017-01-13 15:43] LABS: ALB/GLOB RATIO 1.4 (1.1-1.8); ALKALINE PHOSPHATASE 56 U/L (38-133); ALT/SGPT 74 U/L (7-56); AST/SGOT 67 U/L (15-59); BILIRUBIN,TOTAL 0.5 mg/dL (0.2-1.3); BLOOD UREA NITROGEN 11 mg/dL (7-21); CALCIUM 8.7 mg/dL (8.4-10.5); CARBON DIOXIDE 32 mmol/L (21-33); CHLORIDE 102 mmol/L (98-107); GFR AFRICAN-AMERICAN > 60; GLUCOSE,RANDOM 83 mg/dL (70-110); POTASSIUM 4.1 mmol/L (3.6-5.0); SODIUM 140 mmol/L (132-148); TOTAL PROTEIN 6.9 g/dL (5.8-8.3)
--- NOTE | 2017-01-13 19:00 | CARD ---
APPROVED REPORT EKG Measurement Heart [id number] <Conclusion> Normal sinus rhythm Normal ECG
[2017-01-13 19:15] LABS: PH,URINE 6.5 (4.7-8.0); URINE APPEARANCE CLEAR (CLEAR); URINE BILIRUBIN NEGATIVE (NEGATIVE); URINE BLOOD NEGATIVE (NEGATIVE); URINE COLOR YELLOW (YELLOW); URINE GLUCOSE (UA) NEGATIVE (NEGATIVE); URINE KETONE NEGATIVE (NEGATIVE); URINE LEUKOCYTE ESTERASE NEGATIVE Leu/uL (NEGATIVE); URINE PROTEIN NEGATIVE mg/dL (<30 mg/dL); URINE UROBILINOGEN 0.2 E.U./dL (<1 E.U./dL)
--- NOTE | 2017-01-13 21:01 | ED PDOC ---
Physical Exam Vital Signs Temp Pulse Resp BP Pulse Ox 01/13/17 19:35 73 18 90 L 01/13/17 18:40 74 16 127/79 97 01/13/17 16:20 80 14 120/77 96 01/13/17 15:19 98.6 F 01/13/17 15:10 98.0 F 01/13/17 14:53 90 13 128/79 96 Finger Stick Blood Glucose: 91 Medical Decision Making ED Course and Treatment: 01/13/17 19:00 Patient signed out to me by Dr. Vail pending sobriety and PES evaluation. 46 year old male presented to the emergency department with drug overdose. pt cleared for dc by pes 01/14/17 05:46 - Lab Interpretations Lab Results: 01/13/17 14:50 01/13/17 14:50 Lab Results 01/13/17 19:05: Urine Opiates Screen Positive H, Urine Methadone Screen Negative , Ur Barbiturates Screen Negative, Ur Phencyclidine Scrn Negative, Ur Amphetamines Screen Negative, U Benzodiazepines Scrn Positive H, U Oth Cocaine Metabols Positive H, U Cannabinoids Screen Negative 01/13/17 19:05: Urine Color Yellow, Urine Appearance Clear, Urine pH 6.5, Ur Specific [place] 1.010, Urine Protein Negative, Urine Glucose (UA) Negative, Urine Ketones Negative, Urine Blood Negative, Urine Nitrate Negative, Urine Bilirubin Negative, Urine Urobilinogen 0.2, Ur Leukocyte Esterase Negative 01/13/17 14:55: POC Glucose (mg/dL) 91 01/13/17 14:50: Alcohol, Quantitative < 10 01/13/17 14:50: Salicylates < 1 L, Acetaminophen < 10.0 L 01/13/17 14:50: Sodium 140, Potassium 4.1, Chloride 102, Carbon Dioxide 32, Anion Gap 10, BUN 11, Creatinine 0.8, Est GFR ( Amer) > 60, Est GFR (Non- Af Amer) > 60, Random Glucose 83, Calcium 8.7, Total Bilirubin 0.5, AST 67 H, ALT 74 H, Alkaline Phosphatase 56, Total Protein 6.9, Albumin 4.0, Globulin 2.9 , Albumin/Globulin Ratio 1.4 01/13/17 14:50: WBC 4.1 L D, RBC 4.17, Hgb 12.7 L, Hct 38.0 L, MCV 91.1, MCH 30.5, MCHC 33.4, RDW 15.0 H, Plt Count 173, MPV 10.1, Gran % 60.5, Lymph % (Auto ) 26.3, [place] % (Auto) 10.5 H, Eos % (Auto) 2.2, Baso % (Auto) 0.5, Gran # 2.48, Lymph # 1.1 L, [place] # 0.4, Eos # 0.1, Baso # 0.02 - RAD Interpretation Radiology Orders: 01/13/17 14:58 CHEST PORTABLE [RAD] Stat - Medication Orders Current Medication Orders: Discontinued Medications Haloperidol Lactate (Haldol) 5 mg IM STAT STA Stop: 01/13/17 14:58 Last Admin: 01/13/17 15:00 Dose: 5 mg Sodium Chloride (Sodium Chloride 0.9%) 500 mls @ 1,000 mls/hr IV .Q30M STA Stop: 01/13/17 15:26 Last Admin: 01/13/17 15:00 Dose: 1,000 mls/hr Disposition/Present on Arrival - Present on Arrival Any Indicators Present on Arrival: No History of DVT/PE: No History of Uncontrolled Diabetes: No Urinary Catheter: No History of Decub. Ulcer: No History Surgical Site Infection Following: None - Disposition Have Diagnosis and Disposition been Completed?: Yes Diagnosis: Opiate overdose, Drug overdose, multiple drugs Disposition: HOME/ ROUTINE Disposition Time: 06:00 Patient Problems: Current Active Problems Problem Status Onset Drug overdose, multiple drugs Acute Opiate overdose Acute Condition: FAIR
[2017-01-13] MEDS ORDERED: Naloxone 0.4 mg/ml Inj (Adult) IVP STA (22:02)
[2017-01-13 23:18] LABS: ARTERIAL BLOOD GAS HCO3 32.2 mmol/L (21-28); ARTERIAL BLOOD GAS O2 CAPACITY 16.6 mL/dl (16-24); ARTERIAL BLOOD GAS O2 CONTENT 15.4 ML/dl (15-23); ARTERIAL BLOOD GAS PH 7.36 (7.35-7.45); ARTERIAL BLOOD HGB O2 SAT 90.9 % (95.0-98.0); CARBOXYHEMOGLOBIN 2.3 % (0.5-1.5); HHB 6.8 % (0-5)
[2017-01-14 01:59] VITALS: BP 135/85; RESP 18; O2SAT 95
[2017-01-14 06:42] VITALS: PULSE 75
== END 2017-01-14 06:43 | disposition home or self-care (01) ==
LOC: ED 14:45
DX: T40.1X4A Poisoning by heroin, undetermined, initial encounter (principal); T50.994A Poisoning by other drugs, medicaments and biological substances, undetermined, initial encounter; Y92.89 Other specified places as the place of occurrence of the external cause
CPT/HCPCS: 71010; 80053; 81003; 82803; 82948; 85025; 90791; 93005; 96372; 96374; 99285; G0480; J1630; J2310; J7040

== ENCOUNTER 2017-02-21 16:23 | Inpatient (IN) | payer MEDICARE, MEDICAID, OTHER ==
[2017-02-21] MEDS ORDERED: Naloxone 0.4 mg/ml Inj (Adult) IVP STA ×2 (16:25→17:28)
[2017-02-21 16:46] LABS: ADD MANUAL DIFF? NO
[2017-02-21 16:50] LABS: BASO # 0.02 K/mm3 (0.0-2.0); BASO % 0.4 % (0.0-3.0); EOS # 0.1 (0.0-0.7); EOS % 2.2 % (1.5-5.0); GRAN # 2.52 (1.4-6.5); GRAN % 54.4 % (50.0-68.0); HEMATOCRIT 38.9 % (42.0-52.0); LYMPH # 1.6 (1.2-3.4); LYMPH % 33.7 % (22.0-35.0); MEAN CELL VOLUME 92.8 fL (80.0-105.0); MEAN CORPUSCULAR HGB CONC 34.4 g/dl (31.0-37.0); MEAN PLATELET VOLUME 10.8 fl (7.0-11.0); MONO # 0.4 (0.1-0.6); MONO % 9.3 % (1.0-6.0); PLATELET COUNT 173 10^3/uL (120.0-450.0); RED CELL DISTRIBUTION WIDTH 12.4 % (11.5-14.5); WHITE BLOOD COUNT 4.6 10^3/ul (4.5-11.0)
--- NOTE | 2017-02-21 16:54 | ED PDOC ---
Arrival/HPI - General Chief Complaint: Altered Mental Status Time Seen by Provider: 02/21/17 16:24 Historian: Patient, EMS - Critical Care Critical Care Minutes: 30 minutes - History of Present Illness Narrative History of Present Illness (Text): 02/21/17 17:02 A 46 year old male, found by EMS on street on [facility], unresponsive. Patient was breathing slow, low BP systolic 90s. Patient given intranasal 1 mg, without arousal. Pinpoint pupils noted on arrival. Patient moaning and has slow breathing pattern, clear lungs. Patient given 2mg IV Narcan in ED and is slowly more arousable to painful stimuli. Pinpoint pupils noted, no evident head trauma. PMD: Unknown Time/Duration: Prior to Arrival Symptom Onset: Sudden Symptom Course: Unchanged Activities at Onset: Rest Context: Street Past Medical History - Provider Review Nursing Documentation Reviewed: Yes - Psychiatric Hx Substance Use: Yes (unknown) Family/Social History - Physician Review Nursing Documentation Reviewed: Yes Family/Social History: No Known Family HX Smoking Status: Unknown If Ever Smoked Hx Alcohol Use: Yes (unknown) Hx Substance Use: Yes (unknown) Allergies/Home Meds Allergies/Adverse Reactions: Allergies Unobtainable Allergy (Verified 02/21/17 16:24) Home Medications: Home Meds Medication Instructions Recorded Confirmed RX: Unobtainable 02/21/17 02/21/17 Review of Systems - Review of Systems Systems not reviewed;Unavailable: Other (unresponsive) Physical Exam Vital Signs Reviewed: Yes Vital Signs Temp Pulse Resp BP Pulse Ox 02/21/17 18:14 73 18 116/66 98 02/21/17 16:23 98.9 F 91 H 11 L 139/84 99 Temperature: Afebrile Blood Pressure: Normal Pulse: Regular Respiratory Rate: Normal Appearance: Positive for: Ill-Appearing Pain Distress: None Mental Status: Positive for: Lethargic Finger Stick Blood Glucose: 127 - Systems Exam Head: Present: Atraumatic, Normocephalic. No: Contusion Pupils: Present: Pinpoint Conjunctiva: Present: Normal Ears: Present: Normal Mouth: Present: Dry Pharnyx: Present: Normal. No: ERYTHEMA Nose (Internal): Present: Normal Inspection, No Active Bleeding Neck: Present: Normal Range of Motion. No: MIDLINE TENDERNESS Respiratory/Chest: Present: Clear to Auscultation, Good Air Exchange, Accessory Muscle Use. No: Respiratory Distress Cardiovascular: Present: Regular Rate and Rhythm Abdomen: Present: Normal Bowel Sounds. No: Tenderness, Distention, Peritoneal Signs Genitourinary Male: Present: Normal External Genitalia, Other (cardoso placed with yellow clear urine) Back: Present: Normal Inspection Upper Extremity: Present: Normal Inspection, NORMAL PULSES. No: Edema Lower Extremity: Present: Normal Inspection, NORMAL PULSES. No: Edema Neurological: Present: Motor Func Grossly Intact (moves extremities to painful stimuli), Normal Sensory Function (responds to painful stimuli) Skin: Present: Warm. No: Rashes Psychiatric: Present: Lethargic, Other (unresponsive, moaning) Medical Decision Making ED Course and Treatment: 02/21/17 16:51 Impression: A 46 year old male found on street unresponsive. Pinpoint pupils noted on arrival. Patient moaning and has slow breathing pattern, clear lungs. Patient given 2mg IV narcan and is slowly waking up. Pinpoint pupils noted, no evident head trauma. Differential Diagnosis included but are not limited to: Drug Overdose (benzos vs opiates) vs Sepsis vs ICH Plan: -- EKG -- chest xray -- CT cervical spine -- CT head -- labs -- Urinalysis -- Reassess and disposition Progress Notes: Pinpoint pupils noted on arrival. Patient moaning and has slow breathing pattern , clear lungs. Patient given 2mg IV narcan and is slowly waking up. Pinpoint pupils noted, no evident head trauma. EKG: Ordered, reviewed, and independently interpreted the EKG. Rate : 82 BPM Rhythm : NSR Interpretation : No ST-segment elevations or depressions, no T-wave inversions, normal intervals. Comparison : No previous EKG for comparison. 02/21/17 17:07 Patient's respiratory status improving. Saturating 96% on 3L NC. RR 20. Snoring. Arousable to painful stimuli. Will continue to reevaluate. ABG ordered. 02/21/17 17:52 Patient received another Narcan 2mg IV. He is now more responsive to painful stimuli. When asking his name he says 'what' and then dozes off to sleep. RR 20. Saturating 96% on 3L NC. 02/21/17 17:[address] Duggan who will place on her service. 02/21/17 17:56 Patient had a prescription bottle of Clonazepam 1mg QID in his pocket. 43/120 tablets left. Case was discussed with Ed from [place] [facility] who recommends supportive care, NAC first dose and close respiratory monitoring. CT Cervical Spine Without Intravenous Contrast FINDINGS: Vertebrae: No vertebral fracture is present. Facets are normally aligned. Normal vertebral alignment. Normal atraumatic appearance of the atlantoaxial joint. Discs/spinal canal/neural foramina: Disc spaces are normal. Spinal canal is normal. No spinal canal stenosis. Soft tissues: No paraspinal soft tissue contusion or hematoma. Submandibular/parotid glands: A prominent stone is present in the right submandibular gland. Small satellite stone is also seen in close proximity. The largest stone 1.3 cm. The right submandibular gland is atrophic and shows no adjacent fluid or gland enlargement. Lung apices: Lung apices without pneumothorax or contusion. IMPRESSION: No significant injury to the cervical spine. Right submandibular sialolithiasis incidentally seen. Dictated and Authenticated by: Benito Sharp MD 02/21/2017 6:01 PM Eastern Time ([place] & [place]) CT Head Without Intravenous Contrast FINDINGS: Brain: There is a focal hypodensity in the right thalamus, consistent with a remote lacunar infarction versus prominent perivascular space. There is mild diffuse cerebral atrophy present, consistent with this patient's age. The brain is otherwise unremarkable. Normal ward-white matter differentiation is present, without acute hemorrhage, or mass. Ventricles: Unremarkable. No ventriculomegaly. Bones/joints: Unremarkable. No acute fracture. Soft tissues: Unremarkable. Sinuses: Unremarkable as visualized. No acute sinusitis. Mastoid air cells: Unremarkable as visualized. No mastoid effusion. IMPRESSION: No acute process is seen. No evidence of bleed mass, or acute infarction. Dictated and Authenticated by: Benito Sharp MD 02/21/2017 6:06 PM Eastern Time ([place] & [place]) 02/21/17 18:19 Case was discussed with Chief Radiologic Technologist who will accept patient to the ICU. 02/21/17 18:37 Case discussed with AUGUSTIN Bentley, who will evaluate the patient. - Critical Care Critical Care Minutes: 60 minutes - Lab Interpretations Lab Results: 02/21/17 16:35 02/21/17 16:35 Lab Results 02/21/17 17:30: pCO2 48 H, pO2 141.0 H, HCO3 25.9, ABG pH 7.34 L, ABG Total CO2 27.4, ABG O2 Saturation 93.1 L, ABG O2 Content 15.0, ABG Base Excess -0.3, ABG Hemoglobin 11.5 L, ABG Carboxyhemoglobin 2.3 H, POC ABG HHb (Measured) 6.7 H, ABG Methemoglobin 0.0, ABG O2 Capacity 16.1, Hgb O2 Saturation 91.0 L, FiO2 30.0 02/21/17 16:48: Urine Opiates Screen Positive H, Urine Methadone Screen Negative , Ur Barbiturates Screen Negative, Ur Phencyclidine Scrn Negative, Ur Amphetamines Screen Negative, U Benzodiazepines Scrn Positive H, U Oth Cocaine Metabols Positive H, U Cannabinoids Screen Negative 02/21/17 16:48: Urine Color Light yellow, Urine Appearance Clear, Urine pH 6.0, Ur Specific [place] 1.020, Urine Protein Negative, Urine Glucose (UA) Negative, Urine Ketones Negative, Urine Blood Negative, Urine Nitrate Negative, Urine Bilirubin Negative, Urine Urobilinogen 0.2, Ur Leukocyte Esterase Negative 02/21/17 16:40: pO2 169 H, VBG pH 7.35, VBG pCO2 49.0, VBG HCO3 27.1, VBG Total CO2 28.6 H, VBG O2 Sat (Calc) 93.2 H, VBG Base Excess 0.7, VBG Potassium 3.9, Glucose 138 H, Lactate 1.6, FiO2 21.0, Sodium 137.0, Chloride 103.0, Venous Blood Potassium 3.9 02/21/17 16:35: Salicylates < 1 L, Acetaminophen 29.0 H 02/21/17 16:35: Alcohol, Quantitative < 10 02/21/17 16:35: Sodium 139, Potassium 3.9, Chloride 103, Carbon Dioxide 26, Anion Gap 14, BUN 17, Creatinine 1.2, Est GFR ( Amer) > 60, Est GFR (Non- Af Amer) > 60, Random Glucose 128 H, Calcium 9.0, Phosphorus 4.3, Magnesium 2.1 , Total Bilirubin 0.7, AST 46, ALT 44, Alkaline Phosphatase 55, Total Protein 7.3, Albumin 4.3, Globulin 3.0, Albumin/Globulin Ratio 1.4 02/21/17 16:35: PT 10.7, INR 0.99, APTT 26.9 02/21/17 16:35: WBC 4.6, RBC 4.19, Hgb 13.4 L, Hct 38.9 L, MCV 92.8, MCH 32.0, MCHC 34.4, RDW 12.4, Plt Count 173, MPV 10.8, Gran % 54.4, Lymph % (Auto) 33.7, [place] % (Auto) 9.3 H, Eos % (Auto) 2.2, Baso % (Auto) 0.4, Gran # 2.52, Lymph # 1.6, [place] # 0.4, Eos # 0.1, Baso # 0.02 I have reviewed the lab results: Yes - RAD Interpretation Radiology Orders: 02/21/17 16:26 CHEST PORTABLE [RAD] Stat 02/21/17 16:28 HEAD W/O CONTRAST [CT] Stat 02/21/17 16:42 CERVICAL SPINE W/O CONTRAST [CT] Stat - EKG Interpretation Interpreted by ED Physician: Yes Type: 12 lead EKG - Medication Orders Current Medication Orders: Acetylcysteine 13.3 gm/ (Dextrose) 266.5 mls @ 266.5 mls/hr IV ONCE ONE Stop: 02/21/17 18:59 Last Admin: 02/21/17 18:28 Dose: 266.5 mls/hr Discontinued Medications Naloxone HCl (Narcan) 2 mg IVP STAT STA Stop: 02/21/17 16:26 Last Admin: 02/21/17 16:30 Dose: 2 mg Naloxone HCl (Narcan) 2 mg IVP STAT STA Stop: 02/21/17 17:29 Last Admin: 02/21/17 17:34 Dose: 2 mg - Scribe Statement The provider has reviewed the documentation as recorded by the Herlinda Obrien Provider Scribe Attestation: All medical record entries made by the Herlinda were at my direction and personally dictated by me. I have reviewed the chart and agree that the record accurately reflects my personal performance of the history, physical exam, medical decision making, and the department course for this patient. I have also personally directed, reviewed, and agree with the discharge instructions and disposition. Disposition/Present on Arrival - Present on Arrival Any Indicators Present on Arrival: No History of DVT/PE: No History of Uncontrolled Diabetes: No Urinary Catheter: No History of Decub. Ulcer: No History Surgical Site Infection Following: None - Disposition Have Diagnosis and Disposition been Completed?: Yes Diagnosis: Overdose, Tylenol overdose, Opiate overdose Disposition: HOSPITALIZED Disposition Time: 17:54 Patient Plan: Admission, ICU Patient Problems: Current Active Problems Problem Status Onset Overdose Acute Tylenol overdose Acute Opiate overdose Acute Condition: SERIOUS Referrals: Cary Oneill, [Primary Care Provider] - Follow up with primary
[2017-02-21 16:59] LABS: ALB/GLOB RATIO 1.4 (1.1-1.8); ALKALINE PHOSPHATASE 55 U/L (38-133); ALT/SGPT 44 U/L (7-56); AST/SGOT 46 U/L (15-59); BILIRUBIN,TOTAL 0.7 mg/dL (0.2-1.3); BLOOD UREA NITROGEN 17 mg/dL (7-21); CARBON DIOXIDE 26 mmol/L (21-33); CHLORIDE 103 mmol/L (98-107); GFR AFRICAN-AMERICAN > 60; GLUCOSE,RANDOM 128 mg/dL (70-110); MAGNESIUM 2.1 mg/dL (1.7-2.2); PHOSPHOROUS 4.3 mg/dL (2.5-4.5); POTASSIUM 3.9 mmol/L (3.6-5.0); SODIUM 139 mmol/L (132-148); TOTAL PROTEIN 7.3 g/dL (5.8-8.3)
[2017-02-21 17:03] LABS: VENOUS BLOOD GAS BASE EXCESS 0.7 mmol/L (0.0-2.0); VENOUS BLOOD PH 7.35 (7.32-7.43)
[2017-02-21 17:17] LABS: URINE APPEARANCE CLEAR (CLEAR); URINE BILIRUBIN NEGATIVE (NEGATIVE); URINE BLOOD NEGATIVE (NEGATIVE); URINE COLOR LIGHT YELLOW (YELLOW); URINE GLUCOSE (UA) NEGATIVE (NEGATIVE); URINE KETONE NEGATIVE (NEGATIVE); URINE LEUKOCYTE ESTERASE NEGATIVE Leu/uL (NEGATIVE); URINE PROTEIN NEGATIVE mg/dL (<30 mg/dL); URINE UROBILINOGEN 0.2 E.U./dL (<1 E.U./dL)
[2017-02-21 17:18] LABS: INR 0.99 (0.93-1.08); PARTIAL THROMBOPLASTIN TIME 26.9 Seconds (23.7-30.8)
[2017-02-21] MEDS ORDERED: Acetylcysteine 6 GM/30 ML IV IVPB ONE (17:33)
[2017-02-21 17:38] LABS: ARTERIAL BLOOD GAS HCO3 25.9 mmol/L (21-28); ARTERIAL BLOOD GAS O2 CAPACITY 16.1 mL/dl (16-24); ARTERIAL BLOOD GAS PH 7.34 (7.35-7.45); CARBOXYHEMOGLOBIN 2.3 % (0.5-1.5); HHB 6.7 % (0-5)
[2017-02-21] MEDS ORDERED: DEXTROSE 5% IV ONE ×2 (18:00→19:29)
[2017-02-21] MEDS ORDERED: ACETYLCYSTEINE IV ONE ×2 (18:00→19:29)
[2017-02-21] MEDS ORDERED: WATER IV ONE ×2 (18:00→19:29)
[2017-02-21 18:41] LABS: TROPONIN I < 0.01 ng/mL
[2017-02-21] MEDS ORDERED: Midazolam 5 MG/5 ML VIAL ONE (19:14)
[2017-02-21] MEDS ORDERED: Propofol 10 mg/ml Inj (20 ML) ONE (19:23)
[2017-02-21] MEDS ORDERED: Propofol 10 mg/ml 1,000 MG/100 ML VIAL ONE (19:24)
[2017-02-21] MEDS ORDERED: Midazolam 2 MG/2 ML VIAL IVP STA (19:27)
[2017-02-21] MEDS ORDERED: Propofol 10 mg/ml Inj (20 ML) IVP ONE ×3 (19:28→19:37)
--- NOTE | 2017-02-21 20:05 | CON ---
DATE: 02/21/2017 HISTORY OF PRESENT ILLNESS: I examined the patient in the Emergency Room. He is a 47-year-old male found by EMS unresponsive, slow breathing, hypotensive and brought to the Emergency Room. His past medical history includes Germaine En Y bypass procedure, refractory anemia, diverticulitis, esophagitis, gastric ulcer. The patient was moaning and had a slow breathing pattern. He was given Narcan in the Emergency Department. Pinpoint pupils noted on exam. The patient is currently being treated in the Emergency Room. I discussed this case with Dr. Aguero of the ICU. He is currently undergoing acetylcysteine treatment and is responsive to painful stimuli. Respiratory rate at the current time in the ER is shallow. Therefore, he will be intubated and transferred to ICU. PHYSICAL EXAMINATION: VITAL SIGNS: I reviewed this patient's vital signs. HEENT: Unable to be performed. LUNGS: Coarse breath sounds. HEART: Irregular rhythm. ABDOMEN: Soft. Irregular bowel sounds. LABORATORY DATA: Results consistent with a WBC of 4.6 with H and H of 13.4 and 38.9. Normal coagulation. I reviewed this patient's blood gas. Chemistry significant for a CPK of 376 with an LDH of 540. That was at 4:35 this afternoon. LFTs are within normal limits. Urine noncontributory. Acetaminophen level of 29. Urine positive for benzodiazepines and cocaine. OVERALL ASSESSMENT: This is a 47-year-old white male with a PMH significant for mostly gastrointestinal issues admitted unresponsive. Currently being treated for Tylenol overdose. Respiratory depression being addressed by intubation. The patient will be transferred to intensive care unit. I will reevaluate this patient tomorrow morning. The patient will be under the observation of the intensive care unit attending, Dr. Aguero and his associates, neil. No much for me to do acutely since they will be ordering the appropriate medications for this patient. Robby Hood DO, PhD cc: [id number] TT: 02/21/2017 20:04:24 Confirmation # [id number] Dictation # [id number] ln [facility]AGI
--- NOTE | 2017-02-21 20:29 | CP.PCM.PN ---
Subjective - Date & Time of Evaluation Date of Evaluation: 02/21/17 Time of Evaluation: 20:26 - Subjective Subjective: Upon 's instruction , patient was intubated with 7.5 ETT , position was confirmed by direct visualization, CO2 detector, CXR and auscultation.Patient had to be given 10 mg propofol IV x 3 and had to be placed on propofol drip to titrate for sedation. Objective - Vital Signs/Intake and Output Vital Signs (last 24 hours): Temp Pulse Resp BP Pulse Ox 98.9 F 71 15 146/89 99 02/21/17 16:23 02/21/17 19:39 02/21/17 19:39 02/21/17 19:39 02/21/17 19:39 - Medications Medications: Current Medications Heparin Sodium (Porcine) (Heparin) 5,000 units SC Q8H REMINGTON PRN Reason: Protocol Acetylcysteine 8,800 mg/ (Dextrose) 1,044 mls @ 65.25 mls/hr IV .Q16H ONE Stop: 02/22/17 16:59 Acetylcysteine 4,400 mg/ (Dextrose) 522 mls @ 125 mls/hr IV .Q4H11M ONE Stop: 02/21/17 23:39 Propofol (Diprivan) 1,000 mg in 100 mls @ 2.654 mls/hr IV .Q24H PRN; Protocol; 5 MCG/KG/MIN PRN Reason: TITRATE PER MD ORDER Pantoprazole Sodium (Protonix Inj) 40 mg IVP DAILY REMINGTON - Labs Labs: PT 10.7 Seconds (9.9-11.8) 02/21/17 16:35 INR 0.99 (0.93-1.08) 02/21/17 16:35 APTT 26.9 Seconds (23.7-30.8) 02/21/17 16:35
[2017-02-21 21:26] VITALS: BMI 27.1
[2017-02-21] MEDS: Dextrose 5%/0.45% NS 1,000 ML IV SCH (23:36)
[2017-02-22] MEDS ORDERED: DEXTROSE 5% IV ONE (01:00)
[2017-02-22] MEDS ORDERED: ACETYLCYSTEINE IV ONE (01:00)
[2017-02-22] MEDS ORDERED: WATER IV ONE (01:00)
[2017-02-22] MEDS: Propofol 10 mg/ml 1,000 MG/100 ML VIAL IV PRN ×2 (02:00→08:05)
[2017-02-22 05:53] LABS: ARTERIAL BLOOD GAS HCO3 28.3 mmol/L (21-28); ARTERIAL BLOOD GAS O2 CAPACITY 16.1 mL/dl (16-24); ARTERIAL BLOOD GAS O2 CONTENT 15.9 ML/dl (15-23); ARTERIAL BLOOD GAS PH 7.37 (7.35-7.45); ARTERIAL BLOOD HGB O2 SAT 95.8 % (95.0-98.0); HHB 1.1 % (0-5); METHEMOGLOBIN 1.1 % (0.0-3.0)
--- NOTE | 2017-02-22 06:24 | CP.PCM.HP ---
History of Present Illness - History of Present Illness History of Present Illness: This 47 year old white male was admitted after he was found unresponsive on the [facility] on [address].Patient was found to miotic. Receives 2 mg IV narcan in the ER after which he became more responsive.He had bradypnea and hypotension in ER.Patient was allegedly noted to have consumed benzodiazepine and tylenols number is unknown.He had a prescription \ bottle of clonazepam in his pocket -1 mg PO QID, 43/120 tablets left. ALLERGIES:Not available. PMH:Not available. PAST SURGICAL HISTORY:Not available. FH:Not available. SOCIAL HISTORY:Not available. HOME MEDICATIONS:Klonopin. PMD:Not available. ROS:Not available. Present on Admission - Present on Admission Any Indicators Present on Admission: No Review of Systems - Review of Systems Systems not reviewed;Unavailable: Altered Mental Status Past Patient History - Infectious Disease Hx of Infectious Diseases: None - Tetanus Immunizations Tetanus Immunization: Unknown - Past Medical History & Family History Past Medical History?: No Pertinent Family History: Not available. - Past Social History Smoking Status: Unknown If Ever Smoked Alcohol: Other (NA) Drugs: Other (Klonopin.) Home Situation {Lives}: Other (NA) - CARDIAC Other/Comment: Not available. - PULMONARY Other/Comment: Not available. - NEUROLOGICAL Other/Comment: Not available. - HEENT Other/Comment: Not available. - RENAL Other/Comment: Not available. - ENDOCRINE/METABOLIC Other/Comment: Not available. - HEMATOLOGICAL/ONCOLOGICAL Other/Comment: Not available. - INTEGUMENTARY Other/Comment: Not available. - MUSCULOSKELETAL/RHEUMATOLOGICAL Hx Falls: No Other/Comment: Not available. - GASTROINTESTINAL Other/Comment: Not available. - GENITOURINARY/GYNECOLOGICAL Other/Comment: Not available. - PSYCHIATRIC Hx Substance Use: Yes - SURGICAL HISTORY Hx Surgeries: (unable to obtain) Other/Comment: Not available. Meds Allergies/Adverse Reactions: Allergies Allergy/AdvReac Type Severity Reaction Status Date / Time Unobtainable Allergy Verified 02/21/17 16:24 Physical Exam - Constitutional Appears: Agitated, Other Additional comments: Unresponsive at times. Agitated at times. - Head Exam Head Exam: ATRAUMATIC, NORMAL INSPECTION, NORMOCEPHALIC - Eye Exam Eye Exam: Normal appearance Additional comments: Pupils-3 mm in size bilaterally.Sluggishly reactive to light. - ENT Exam ENT Exam: Normal External Ear Exam - Neck Exam Neck exam: Positive for: Normal Inspection. Negative for: Thyromegaly - Respiratory Exam Respiratory Exam: Respiratory Distress (Mild.). absent: Accessory Muscle Use, Rales, Rhonchi, Wheezes, NORMAL BREATHING PATTERN - Cardiovascular Exam Cardiovascular Exam: REGULAR RHYTHM, +S1 (Normal.), +S2 (Normal.). absent: JVD - GI/Abdominal Exam GI & Abdominal Exam: Normal Bowel Sounds. absent: Distended - Rectal Exam Rectal Exam: Deferred - Extremities Exam Extremities exam: Positive for: normal inspection. Negative for: pedal edema - Back Exam Back exam: NORMAL INSPECTION - Neurological Exam Neurological exam: Altered (lethagic at times.agitated at times.) - Psychiatric Exam Psychiatric exam: Agitated - Skin Skin Exam: Normal Color Results - Vital Signs Recent Vital Signs: Last Vital Signs Temp 98.9 F 02/21/17 16:23 Pulse 61 02/22/17 02:30 Resp 16 02/21/17 20:58 BP 122/71 02/22/17 02:00 Pulse Ox 100 02/22/17 02:30 - Labs Result Diagrams: 02/22/17 06:00 02/22/17 06:00 - EKG Data EKG Interpreted by: Myself Rate: Normal - Impressions Impression: NSR. Assessment & Plan - Assessment and Plan (Free Text) Assessment: Drug overdose. Tylenol overdose. Klonopin overdose. Opiate overdose. Lethargy. Intermittent agitation. Borderline anemia. Right mandibular silolithiasis by CT. Plan: Admitted to ICU. NPO. Mechanical ventilation. IV hydration IV sedation for saftey of ETT. Mucomyst as ordered. IV narcan given. Repeat labs, CXR ,ABG in AM. Neuro consultation. Psychiatry consultation when fully awake,stable. Serial tylenol levels. Neuro check. Head position up. Extubation if ABG's good and patient is more alert, awake. GI/DVT prophylaxis. Monitor LFT's. Ding catheter,I & O's. Neuro checks. CRITICAL CARE TIME SPENT :30 MINUTES. - Date & Time Date: 02/22/17 Time: 14:39
[2017-02-22 06:25] LABS: ADD MANUAL DIFF? NO
[2017-02-22 06:35] LABS: BASO # 0.01 K/mm3 (0.0-2.0); BASO % 0.3 % (0.0-3.0); EOS # 0.1 (0.0-0.7); EOS % 2.7 % (1.5-5.0); GRAN # 2.16 (1.4-6.5); GRAN % 57.3 % (50.0-68.0); HEMATOCRIT 37.9 % (42.0-52.0); LYMPH # 1.1 (1.2-3.4); LYMPH % 29.4 % (22.0-35.0); MEAN CELL VOLUME 92.4 fL (80.0-105.0); MEAN CORPUSCULAR HEMOGLOBIN 31.7 pg (25.0-35.0); MEAN CORPUSCULAR HGB CONC 34.3 g/dl (31.0-37.0); MEAN PLATELET VOLUME 10.7 fl (7.0-11.0); MONO # 0.4 (0.1-0.6); MONO % 10.3 % (1.0-6.0); PLATELET COUNT 138 10^3/uL (120.0-450.0); RED CELL DISTRIBUTION WIDTH 12.4 % (11.5-14.5); WHITE BLOOD COUNT 3.8 10^3/ul (4.5-11.0)
[2017-02-22 06:39] LABS: ALB/GLOB RATIO 1.3 (1.1-1.8); ALKALINE PHOSPHATASE 45 U/L (38-133); ALT/SGPT 42 U/L (7-56); AST/SGOT 30 U/L (15-59); BILIRUBIN,TOTAL 0.5 mg/dL (0.2-1.3); BLOOD UREA NITROGEN 13 mg/dL (7-21); CALCIUM 8.3 mg/dL (8.4-10.5); CARBON DIOXIDE 28 mmol/L (21-33); CHLORIDE 105 mmol/L (95-110); GFR AFRICAN-AMERICAN > 60; GLUCOSE,RANDOM 117 mg/dL (70-110); POTASSIUM 3.5 mmol/L (3.6-5.0); SODIUM 139 mmol/L (132-148); TOTAL PROTEIN 6.2 g/dL (5.8-8.3)
--- NOTE | 2017-02-22 07:23 | CT ---
PROCEDURE: CT HEAD WITHOUT CONTRAST. HISTORY: r/o CVA COMPARISON: None available. TECHNIQUE: Axial computed tomography images were obtained through the head/brain without intravenous contrast. Radiation dose: Total exam DLP = 774.23 mGy-cm. This CT exam was performed using one or more of the following dose reduction techniques: Automated exposure control, adjustment of the mA and/or kV according to patient size, and/or use of iterative reconstruction technique. FINDINGS: HEMORRHAGE: No intracranial hemorrhage. BRAIN: Burrell-white matter differentiation is preserved. There is no mass, mass effect or abnormal extra-axial fluid collection. VENTRICLES: The ventricles are normal in size, shape and configuration. CALVARIUM: The skull base and calvarium are normal. PARANASAL SINUSES: Predominantly clear. MASTOID AIR CELLS: Predominantly clear. OTHER FINDINGS: None. IMPRESSION: No acute intracranial abnormality. A preliminary report was provided by [facility].
--- NOTE | 2017-02-22 07:28 | CT ---
PROCEDURE: CT Cervical Spine without contrast HISTORY: Fall COMPARISON: None available. TECHNIQUE: Axial computed tomography images were obtained of the cervical spine without the use of intravenous contrast. Coronal and sagittal reformatted images were created and reviewed. Radiation dose: Total exam DLP = 774.23 mGy-cm. This CT exam was performed using one or more of the following dose reduction techniques: Automated exposure control, adjustment of the mA and/or kV according to patient size, and/or use of iterative reconstruction technique. FINDINGS: VERTEBRAE: There is normal alignment of the cervical vertebral bodies. Cervical lordosis is maintained. Vertebral bodies are normal in height. There is no acute fracture or spondylolisthesis. Bone mineralization is normal. DISCS/SPINAL CANAL/NEURAL FORAMINA: No large disc herniation, neural foraminal or spinal canal stenosis. PARASPINAL SOFT TISSUES: There is no prevertebral soft tissue thickening. The paraspinous soft tissues are normal. OTHER FINDINGS: Incidentally noted is right submandibular silo lithiasis. IMPRESSION: No acute fracture or traumatic anterior listhesis. A preliminary report was provided by [facility].
--- NOTE | 2017-02-22 07:30 | CON ---
DATE: 02/21/2017 This is a 47-year-old male who was found on the street unresponsive. The patient was hypotensive and bradycardic. The patient was given 2 mg of Narcan and woke up, but then fell asleep again to the point that he was not responsive to painful stimuli. The decision to be intubate was made. PAST MEDICAL HISTORY: Unobtainable. SOCIAL HISTORY: Unobtainable. ALLERGIES: Unobtainable. REVIEW OF SYSTEMS: Unobtainable. PHYSICAL EXAMINATION: VITAL SIGNS: Respiratory rate 5-6, temperature 98.9, blood pressure 116/66, respiratory rate 18. HEAD AND NECK: Atraumatic. LUNGS: Decreased breath sounds bilaterally. HEART: Regular rate and rhythm. S1, S2 normal. ABDOMEN: Soft, nontender, nondistended. MUSCULOSKELETAL: No C/C/E. NEUROLOGIC: The patient is not responsive to painful stimuli. SKIN: Color moist. PSYCHIATRIC: The patient is alert and oriented x 3. LABORATORY DATA: WBC 4.6, hemoglobin 13.4, platelet count 173. Sodium 139, potassium 3.9, chloride 103, carbon dioxide 26, BUN 17, creatinine 1.2, glucose 128. CPK 376. Chest x-ray: Some vascular congestion. Head CT: No acute GI or pulmonary disease. No bleeding. ASSESSMENT AND PLAN: This is a 47-year-old gentleman on benzodiazepine, tylenol and opiate overdose, who was unable to protect his airway and was hypoventilating. He temporarily responded to Narcan; however, slipped right back to unresponsiveness. The decision was made to intubate the patient. At the present time, the patient is intubated and will be going to ICU until he wakes up. He will complete 3 doses of NAC. Will continue to target euvolemia, euglycemia, normothermia and oxygen saturation more than 90%. Once the patient wakes up and be able to breathe on his own, the patient will be extubated. Will continue with deep venous thrombosis and gastrointestinal prophylaxis. ccm time 40 min Uche Aguero MD cc: [id number] TT: 02/21/2017 20:43:00 Confirmation # [id number] Dictation # [id number] MTDD
--- NOTE | 2017-02-22 07:40 | PN ---
DATE: 02/22/2017 I examined the patient again this morning. 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 Note that evaluation of his urinalysis revealed evidence of cocaine as well as benzodiazepines. The patient was initiated on Mucomyst therapy in the ER last night and continues as of this morning. He was subsequently intubated last night due to shortness of breath and respiratory depression. He had an uneventful night on the vent. Laboratory data was not available during the psychological tests sales agent; however, labs are pending for this morning. Tylenol level on the day of admission yesterday was 29. I reviewed this case with the ICU nurse this morning. PHYSICAL EXAMINATION: VITAL SIGNS: I reviewed this patient's vital signs. HEENT: Unable to be performed due to intubation and sedation. LUNGS: Coarse breath sounds basilar. Otherwise clear. HEART: Regular rhythm. ABDOMEN: Soft. No tenderness elicited. LABORATORY DATA: Pending as of this morning. OVERALL ASSESSMENT: This is a 47-year-old male admitted due to symptoms suggestive of Tylenol plus possible polysubstance abuse. The patient was found unresponsive, subsequently brought to the Emergency Room and treated as indicated previously. The treatment regimen will be as per the ICU attending. Again, laboratory data is pending for this morning. This will indicate prognosis. Note that as of last night, the most recent transaminases were 46/ 44 AST/ALT ratio and total bilirubin is 0.7. Alk phos of 55. His renal function had been within normal limits. I would not make any changes to the current regimen. Robby Hood DO, PhD cc: [id number] TT: 02/22/2017 07:39:13 Confirmation # [id number] Dictation # [id number] en [id number]
[2017-02-22 07:52] LABS: TROPONIN I < 0.01 ng/mL
--- NOTE | 2017-02-22 08:50 | RAD ---
HISTORY: unresponsive COMPARISON: No prior. FINDINGS: LUNGS: The lungs are clear. PLEURA: No significant pleural effusion identified, no pneumothorax apparent. CARDIOVASCULAR: Normal. OSSEOUS STRUCTURES: No significant abnormalities. VISUALIZED UPPER ABDOMEN: Normal. OTHER FINDINGS: None. IMPRESSION: No acute findings.
--- NOTE | 2017-02-22 09:32 | RAD ---
HISTORY: s/p intubation COMPARISON: Earlier study same day FINDINGS: LUNGS: No active pulmonary disease. PLEURA: No significant pleural effusion identified, no pneumothorax apparent. CARDIOVASCULAR: Normal. OSSEOUS STRUCTURES: No significant abnormalities. VISUALIZED UPPER ABDOMEN: Normal. OTHER FINDINGS: Endotracheal tube in satisfactory position IMPRESSION: No active disease.
--- NOTE | 2017-02-22 09:37 | RAD ---
HISTORY: ET tube placemant COMPARISON: 02/21/2017 FINDINGS: LUNGS: No active pulmonary disease. PLEURA: No significant pleural effusion identified, no pneumothorax apparent. CARDIOVASCULAR: Normal. OSSEOUS STRUCTURES: No significant abnormalities. VISUALIZED UPPER ABDOMEN: Normal. OTHER FINDINGS: Endotracheal tube in satisfactory position IMPRESSION: No active disease.
[2017-02-22] MEDS: Dextrose 5%/0.45% NS 1,000 ML IV SCH ×2 (09:50→20:33)
--- NOTE | 2017-02-22 12:32 | CP.CCUPN ---
<Kayla Shah - Last Filed: 02/22/17 15:31> CCU Subjective - Physician Review Subjective (Free Text): 02/22/17 12:08 Pt seen and examined. Extubated at 9:15am. Wanted to leave AMA. Pt was put in 1: 1, given Ativan 2 stat, psych consult, notified primary team. Pt passed bedside swallow eval. Will start a diet. 02/22/17 14:11 Code price for AMA x2. No capacity to leave. Seen by psych. s/p ad. Will have stat methadone 25 mg x 1 and ativan 2 po x 1 CCU Objective - Vital Signs / Intake & Output Vital Signs (Last 4 hours): Vital Signs Pulse Pulse Ox 02/22/17 08:10 57 L 100 Intake and Output (Last 8hrs): Intake & Output 02/21/17 02/22/17 02/22/17 22:59 06:59 14:59 Intake Total 1510 Output Total 2500 Balance -990 Weight 195 lb 187 lb Intake: IV 1510 Right Wrist 1400 Output: Urine 2500 Urethral (Cardoso) 2500 Stool 0 Other: Voiding Method Indwelling Catheter - Physical Exam Head: Positive for: Atraumatic, Normocephalic. Negative for: Contusion Pupils: Positive for: PERRL, Sluggish Extroacular Muscles: Positive for: EOMI Conjunctiva: Positive for: Normal. Negative for: Injected, Icteric Ears: Positive for: Normal Mouth: Positive for: Dry Pharnyx: Positive for: Normal. Negative for: ERYTHEMA Nose (Internal): Positive for: Normal Inspection, No Active Bleeding Neck: Positive for: Normal Range of Motion. Negative for: MIDLINE TENDERNESS Respiratory/Chest: Positive for: Clear to Auscultation, Good Air Exchange, Accessory Muscle Use. Negative for: Respiratory Distress Cardiovascular: Positive for: Regular Rate and Rhythm, Normal S1, S2 Abdomen: Positive for: Normal Bowel Sounds. Negative for: Tenderness, Distention, Peritoneal Signs Genitourinary Male: Positive for: Normal External Genitalia, Other (cardoso placed with yellow clear urine) Back: Positive for: Normal Inspection Upper Extremity: Positive for: Normal Inspection, NORMAL PULSES. Negative for: Edema Lower Extremity: Positive for: Normal Inspection, NORMAL PULSES. Negative for: Edema Neurological: Positive for: Speech Normal, Motor Func Grossly Intact Skin: Positive for: Warm. Negative for: Rashes Psychiatric: Positive for: Agitated, Lethargic, Other (combative at times). Negative for: Normal Insight - Medications Active Medications: Active Medications Generic Name Dose Route Start Last Admin Trade Name Freq PRN Reason Stop Dose Admin Heparin Sodium (Porcine) 5,000 units 02/21/17 19:30 02/22/17 10:56 Heparin SC 5,000 units Q8H REMINGTON Administration Protocol Acetylcysteine 8,800 mg/ 1,044 mls @ 65.25 mls/hr 02/22/17 01:00 02/22/17 04: 37 Dextrose IV 02/22/17 16:59 65.25 mls/hr .Q16H ONE Administration Dextrose/Sodium Chloride 1,000 mls @ 100 mls/hr 02/21/17 23:15 02/22/17 09:50 Dextrose 5%/0.45% Ns 1000 Ml IV 100 mls/hr .Q10H REMINGTON Administration Lorazepam 2 mg 02/22/17 12:03 Ativan IVP Q3H PRN Anxiety Protocol Pantoprazole Sodium 40 mg 02/22/17 10:00 02/22/17 09:53 Protonix Inj IVP 40 mg DAILY REMINGTON Administration - Patient Studies Lab Studies: Lab Studies 02/22/17 02/22/17 02/22/17 Range/Units 06:00 06:00 06:00 WBC (4.5-11.0) 10^3/ul RBC (3.5-6.1) 10^6/uL Hgb (14.0-18.0) gm/dL Hct (42.0-52.0) % MCV (80.0-105.0) fL MCH (25.0-35.0) pg MCHC (31.0-37.0) g/dl RDW (11.5-14.5) % Plt Count (120.0-450.0) 10^3/uL MPV (7.0-11.0) fl Gran % (50.0-68.0) % Lymph % (Auto) (22.0-35.0) % [place] % (Auto) (1.0-6.0) % Eos % (Auto) (1.5-5.0) % Baso % (Auto) (0.0-3.0) % Gran # (1.4-6.5) Lymph # (1.2-3.4) [place] # (0.1-0.6) Eos # (0.0-0.7) Baso # (0.0-2.0) K/mm3 pCO2 (35-45) mm/Hg pO2 (80-100) mm/Hg HCO3 (21-28) mmol/L ABG pH (7.35-7.45) ABG Total CO2 (22-28) mmol.L ABG O2 Saturation (95-98) % ABG O2 Content (15-23) ML/dl ABG Base Excess (-2.0-3.0) mmol/L ABG Hemoglobin (11.7-17.4) g/dL ABG Carboxyhemoglobin (0.5-1.5) % POC ABG HHb (Measured) (0-5) % ABG Methemoglobin (0.0-3.0) % ABG O2 Capacity (16-24) mL/dl Hgb O2 Saturation (95.0-98.0) % FiO2 % Sodium 139 (132-148) mmol/L Potassium 3.5 L (3.6-5.0) mmol/L Chloride 105 (95-110) mmol/L Carbon Dioxide 28 (21-33) mmol/L Anion Gap 10 (10-20) BUN 13 (7-21) mg/dL Creatinine 0.7 (0.5-1.4) mg/dL Est GFR ( Amer) > 60 Est GFR (Non-Af Amer) > 60 Random Glucose 117 H (70-110) mg/dL Calcium 8.3 L (8.4-10.5) mg/dL Total Bilirubin 0.5 (0.2-1.3) mg/dL AST 30 (15-59) U/L ALT 42 (7-56) U/L Alkaline Phosphatase 45 (38-133) U/L Lactate Dehydrogenase 419 (333-699) U/L Total Creatine Kinase 196 (35-230) U/L Troponin I < 0.01 ng/mL Total Protein 6.2 (5.8-8.3) g/dL Albumin 3.6 (3.0-4.8) g/dL Globulin 2.7 gm/dL Albumin/Globulin Ratio 1.3 (1.1-1.8) Acetaminophen < 10.0 L (10.0-20.0) ug/ml 02/22/17 02/22/17 Range/Units 06:00 05:45 WBC 3.8 L (4.5-11.0) 10^3/ul RBC 4.10 (3.5-6.1) 10^6/uL Hgb 13.0 L (14.0-18.0) gm/dL Hct 37.9 L (42.0-52.0) % MCV 92.4 (80.0-105.0) fL MCH 31.7 (25.0-35.0) pg MCHC 34.3 (31.0-37.0) g/dl RDW 12.4 (11.5-14.5) % Plt Count 138 (120.0-450.0) 10^3/uL MPV 10.7 (7.0-11.0) fl Gran % 57.3 (50.0-68.0) % Lymph % (Auto) 29.4 (22.0-35.0) % [place] % (Auto) 10.3 H (1.0-6.0) % Eos % (Auto) 2.7 (1.5-5.0) % Baso % (Auto) 0.3 (0.0-3.0) % Gran # 2.16 (1.4-6.5) Lymph # 1.1 L (1.2-3.4) [place] # 0.4 (0.1-0.6) Eos # 0.1 (0.0-0.7) Baso # 0.01 (0.0-2.0) K/mm3 pCO2 49 H (35-45) mm/Hg pO2 160.0 H (80-100) mm/Hg HCO3 28.3 H (21-28) mmol/L ABG pH 7.37 (7.35-7.45) ABG Total CO2 29.8 H (22-28) mmol.L ABG O2 Saturation 98.9 H (95-98) % ABG O2 Content 15.9 (15-23) ML/dl ABG Base Excess 2.3 (-2.0-3.0) mmol/L ABG Hemoglobin 11.6 L (11.7-17.4) g/dL ABG Carboxyhemoglobin 2.0 H (0.5-1.5) % POC ABG HHb (Measured) 1.1 (0-5) % ABG Methemoglobin 1.1 (0.0-3.0) % ABG O2 Capacity 16.1 (16-24) mL/dl Hgb O2 Saturation 95.8 (95.0-98.0) % FiO2 40.0 % Sodium (132-148) mmol/L Potassium (3.6-5.0) mmol/L Chloride (95-110) mmol/L Carbon Dioxide (21-33) mmol/L Anion Gap (10-20) BUN (7-21) mg/dL Creatinine (0.5-1.4) mg/dL Est GFR ( Amer) Est GFR (Non-Af Amer) Random Glucose (70-110) mg/dL Calcium (8.4-10.5) mg/dL Total Bilirubin (0.2-1.3) mg/dL AST (15-59) U/L ALT (7-56) U/L Alkaline Phosphatase (38-133) U/L Lactate Dehydrogenase (333-699) U/L Total Creatine Kinase (35-230) U/L Troponin I ng/mL Total Protein (5.8-8.3) g/dL Albumin (3.0-4.8) g/dL Globulin gm/dL Albumin/Globulin Ratio (1.1-1.8) Acetaminophen (10.0-20.0) ug/ml Laboratory Results - last 24 hr 02/22/17 02/22/17 02/22/17 05:45 06:00 06:00 WBC 3.8 L RBC 4.10 Hgb 13.0 L Hct 37.9 L MCV 92.4 MCH 31.7 MCHC 34.3 RDW 12.4 Plt Count 138 MPV 10.7 Gran % 57.3 Lymph % (Auto) 29.4 [place] % (Auto) 10.3 H Eos % (Auto) 2.7 Baso % (Auto) 0.3 Gran # 2.16 Lymph # 1.1 L [place] # 0.4 Eos # 0.1 Baso # 0.01 pCO2 49 H pO2 160.0 H HCO3 28.3 H ABG pH 7.37 ABG Total CO2 29.8 H ABG O2 Saturation 98.9 H ABG O2 Content 15.9 ABG Base Excess 2.3 ABG Hemoglobin 11.6 L ABG Carboxyhemoglobin 2.0 H POC ABG HHb (Measured) 1.1 ABG Methemoglobin 1.1 ABG O2 Capacity 16.1 Hgb O2 Saturation 95.8 FiO2 40.0 Sodium 139 Potassium 3.5 L Chloride 105 Carbon Dioxide 28 Anion Gap 10 BUN 13 Creatinine 0.7 Est GFR ( Amer) > 60 Est GFR (Non-Af Amer) > 60 Random Glucose 117 H Calcium 8.3 L Total Bilirubin 0.5 AST 30 ALT 42 Alkaline Phosphatase 45 Lactate Dehydrogenase Total Creatine Kinase Troponin I Total Protein 6.2 Albumin 3.6 Globulin 2.7 Albumin/Globulin Ratio 1.3 Acetaminophen 02/22/17 02/22/17 06:00 06:00 WBC RBC Hgb Hct MCV MCH MCHC RDW Plt Count MPV Gran % Lymph % (Auto) [place] % (Auto) Eos % (Auto) Baso % (Auto) Gran # Lymph # [place] # Eos # Baso # pCO2 pO2 HCO3 ABG pH ABG Total CO2 ABG O2 Saturation ABG O2 Content ABG Base Excess ABG Hemoglobin ABG Carboxyhemoglobin POC ABG HHb (Measured) ABG Methemoglobin ABG O2 Capacity Hgb O2 Saturation FiO2 Sodium Potassium Chloride Carbon Dioxide Anion Gap BUN Creatinine Est GFR ( Amer) Est GFR (Non-Af Amer) Random Glucose Calcium Total Bilirubin AST ALT Alkaline Phosphatase Lactate Dehydrogenase 419 Total Creatine Kinase 196 Troponin I < 0.01 Total Protein Albumin Globulin Albumin/Globulin Ratio Acetaminophen < 10.0 L EKG/Cardiology Studies: Cardiology / EKG Studies 02/22/17 EKG [ELECTROCARDIOGRAM] Routine Comment: Reason For Exam: cocaine...r/o ACS Fingerstick Blood Sugar Results: 127 Critical Care Progress Note - Nutrition Nutrition: Nutrition Category Date Time Status Heart Healthy Diet [DIET] Diets 02/22/17 Lunch Ordered Assessment/Plan - Assessment and Plan (Free Text) Plan: 47 M found by EMS on stairwell unresponsive, bradypneic/hypotensive, was admitted for AMS and overdose. Pt's UDS (+) on cocaine, opiates, acetaminophen, and benzo. Pt was intubated in ER for AMS s/p Narcane administration. Pt was extubated to 2L NC today. Pt has no capacity to leave AMA today. Neuro Seizure precaution Neural check q4 As of this moment, no capacity to leave AMA, pending psych consult 1:1 Ativan 2q3 IV PRN acetylcysteine IV D5/1-2NS @100 Ativan 2mg PO QID Methadone 25 PO today, to be tapered 5mg less on the next day for the consecutive days Card Trops neg x 2; EKG no sig. changes Pulm Extubated. 2L NC PRN GI Heart Health Diet Stat serum acetylcysteine Continue to watch liver injury, normally manifested 24-36hr post ingestion, peaking 72-96 hrs Acetylcysteine protocol (on 3rd bag) Renal I/O appropriate Endo repleted K Heme Stable Hb 13. MCV 93. Infection WBC 3.8. Observe off antibiotics PVX Heparin subQ q8. s/r/D/w Dr. Villarreal - Date & Time Date: 02/22/17 Time: 12:11 <Cherelle ALCARAZ,[place] H - Last Filed: 02/22/17 17:07> CCU Objective - Vital Signs / Intake & Output Intake and Output (Last 8hrs): Intake & Output 02/22/17 02/22/17 02/22/17 06:59 14:59 22:59 Intake Total 1510 Output Total 2500 Balance -990 Weight 187 lb Intake: IV 1510 Right Wrist 1400 Output: Urine 2500 Urethral (Cardoso) 2500 Stool 0 - Medications Active Medications: Active Medications Generic Name Dose Route Start Last Admin Trade Name Freq PRN Reason Stop Dose Admin Heparin Sodium (Porcine) 5,000 units 02/21/17 19:30 02/22/17 10:56 Heparin SC 5,000 units Q8H REMINGTNO Administration Protocol Dextrose/Sodium Chloride 1,000 mls @ 100 mls/hr 02/21/17 23:15 02/22/17 09:50 Dextrose 5%/0.45% Ns 1000 Ml IV 100 mls/hr .Q10H REMINGTON Administration Lorazepam 2 mg 02/22/17 14:00 02/22/17 14:24 Ativan PO Not Given QID REMINGTON Protocol Pantoprazole Sodium 40 mg 02/22/17 10:00 02/22/17 09:53 Protonix Inj IVP 40 mg DAILY REMINGTON Administration - Patient Studies Lab Studies: Lab Studies 02/22/17 02/22/17 02/22/17 Range/Units 06:00 06:00 06:00 WBC (4.5-11.0) 10^3/ul RBC (3.5-6.1) 10^6/uL Hgb (14.0-18.0) gm/dL Hct (42.0-52.0) % MCV (80.0-105.0) fL MCH (25.0-35.0) pg MCHC (31.0-37.0) g/dl RDW (11.5-14.5) % Plt Count (120.0-450.0) 10^3/uL MPV (7.0-11.0) fl Gran % (50.0-68.0) % Lymph % (Auto) (22.0-35.0) % [place] % (Auto) (1.0-6.0) % Eos % (Auto) (1.5-5.0) % Baso % (Auto) (0.0-3.0) % Gran # (1.4-6.5) Lymph # (1.2-3.4) [place] # (0.1-0.6) Eos # (0.0-0.7) Baso # (0.0-2.0) K/mm3 pCO2 (35-45) mm/Hg pO2 (80-100) mm/Hg HCO3 (21-28) mmol/L ABG pH (7.35-7.45) ABG Total CO2 (22-28) mmol.L ABG O2 Saturation (95-98) % ABG O2 Content (15-23) ML/dl ABG Base Excess (-2.0-3.0) mmol/L ABG Hemoglobin (11.7-17.4) g/dL ABG Carboxyhemoglobin (0.5-1.5) % POC ABG HHb (Measured) (0-5) % ABG Methemoglobin (0.0-3.0) % ABG O2 Capacity (16-24) mL/dl Hgb O2 Saturation (95.0-98.0) % FiO2 % Sodium 139 (132-148) mmol/L Potassium 3.5 L (3.6-5.0) mmol/L Chloride 105 (95-110) mmol/L Carbon Dioxide 28 (21-33) mmol/L Anion Gap 10 (10-20) BUN 13 (7-21) mg/dL Creatinine 0.7 (0.5-1.4) mg/dL Est GFR ( Amer) > 60 Est GFR (Non-Af Amer) > 60 Random Glucose 117 H (70-110) mg/dL Calcium 8.3 L (8.4-10.5) mg/dL Total Bilirubin 0.5 (0.2-1.3) mg/dL AST 30 (15-59) U/L ALT 42 (7-56) U/L Alkaline Phosphatase 45 (38-133) U/L Lactate Dehydrogenase 419 (333-699) U/L Total Creatine Kinase 196 (35-230) U/L Troponin I < 0.01 ng/mL Total Protein 6.2 (5.8-8.3) g/dL Albumin 3.6 (3.0-4.8) g/dL Globulin 2.7 gm/dL Albumin/Globulin Ratio 1.3 (1.1-1.8) Acetaminophen < 10.0 L (10.0-20.0) ug/ml 02/22/17 02/22/17 Range/Units 06:00 05:45 WBC 3.8 L (4.5-11.0) 10^3/ul RBC 4.10 (3.5-6.1) 10^6/uL Hgb 13.0 L (14.0-18.0) gm/dL Hct 37.9 L (42.0-52.0) % MCV 92.4 (80.0-105.0) fL MCH 31.7 (25.0-35.0) pg MCHC 34.3 (31.0-37.0) g/dl RDW 12.4 (11.5-14.5) % Plt Count 138 (120.0-450.0) 10^3/uL MPV 10.7 (7.0-11.0) fl Gran % 57.3 (50.0-68.0) % Lymph % (Auto) 29.4 (22.0-35.0) % [place] % (Auto) 10.3 H (1.0-6.0) % Eos % (Auto) 2.7 (1.5-5.0) % Baso % (Auto) 0.3 (0.0-3.0) % Gran # 2.16 (1.4-6.5) Lymph # 1.1 L (1.2-3.4) [place] # 0.4 (0.1-0.6) Eos # 0.1 (0.0-0.7) Baso # 0.01 (0.0-2.0) K/mm3 pCO2 49 H (35-45) mm/Hg pO2 160.0 H (80-100) mm/Hg HCO3 28.3 H (21-28) mmol/L ABG pH 7.37 (7.35-7.45) ABG Total CO2 29.8 H (22-28) mmol.L ABG O2 Saturation 98.9 H (95-98) % ABG O2 Content 15.9 (15-23) ML/dl ABG Base Excess 2.3 (-2.0-3.0) mmol/L ABG Hemoglobin 11.6 L (11.7-17.4) g/dL ABG Carboxyhemoglobin 2.0 H (0.5-1.5) % POC ABG HHb (Measured) 1.1 (0-5) % ABG Methemoglobin 1.1 (0.0-3.0) % ABG O2 Capacity 16.1 (16-24) mL/dl Hgb O2 Saturation 95.8 (95.0-98.0) % FiO2 40.0 % Sodium (132-148) mmol/L Potassium (3.6-5.0) mmol/L Chloride (95-110) mmol/L Carbon Dioxide (21-33) mmol/L Anion Gap (10-20) BUN (7-21) mg/dL Creatinine (0.5-1.4) mg/dL Est GFR ( Amer) Est GFR (Non-Af Amer) Random Glucose (70-110) mg/dL Calcium (8.4-10.5) mg/dL Total Bilirubin (0.2-1.3) mg/dL AST (15-59) U/L ALT (7-56) U/L Alkaline Phosphatase (38-133) U/L Lactate Dehydrogenase (333-699) U/L Total Creatine Kinase (35-230) U/L Troponin I ng/mL Total Protein (5.8-8.3) g/dL Albumin (3.0-4.8) g/dL Globulin gm/dL Albumin/Globulin Ratio (1.1-1.8) Acetaminophen (10.0-20.0) ug/ml Laboratory Results - last 24 hr 02/22/17 02/22/17 02/22/17 05:45 06:00 06:00 WBC 3.8 L RBC 4.10 Hgb 13.0 L Hct 37.9 L MCV 92.4 MCH 31.7 MCHC 34.3 RDW 12.4 Plt Count 138 MPV 10.7 Gran % 57.3 Lymph % (Auto) 29.4 [place] % (Auto) 10.3 H Eos % (Auto) 2.7 Baso % (Auto) 0.3 Gran # 2.16 Lymph # 1.1 L [place] # 0.4 Eos # 0.1 Baso # 0.01 pCO2 49 H pO2 160.0 H HCO3 28.3 H ABG pH 7.37 ABG Total CO2 29.8 H ABG O2 Saturation 98.9 H ABG O2 Content 15.9 ABG Base Excess 2.3 ABG Hemoglobin 11.6 L ABG Carboxyhemoglobin 2.0 H POC ABG HHb (Measured) 1.1 ABG Methemoglobin 1.1 ABG O2 Capacity 16.1 Hgb O2 Saturation 95.8 FiO2 40.0 Sodium 139 Potassium 3.5 L Chloride 105 Carbon Dioxide 28 Anion Gap 10 BUN 13 Creatinine 0.7 Est GFR ( Amer) > 60 Est GFR (Non-Af Amer) > 60 Random Glucose 117 H Calcium 8.3 L Total Bilirubin 0.5 AST 30 ALT 42 Alkaline Phosphatase 45 Lactate Dehydrogenase Total Creatine Kinase Troponin I Total Protein 6.2 Albumin 3.6 Globulin 2.7 Albumin/Globulin Ratio 1.3 Acetaminophen 02/22/17 02/22/17 06:00 06:00 WBC RBC Hgb Hct MCV MCH MCHC RDW Plt Count MPV Gran % Lymph % (Auto) [place] % (Auto) Eos % (Auto) Baso % (Auto) Gran # Lymph # [place] # Eos # Baso # pCO2 pO2 HCO3 ABG pH ABG Total CO2 ABG O2 Saturation ABG O2 Content ABG Base Excess ABG Hemoglobin ABG Carboxyhemoglobin POC ABG HHb (Measured) ABG Methemoglobin ABG O2 Capacity Hgb O2 Saturation FiO2 Sodium Potassium Chloride Carbon Dioxide Anion Gap BUN Creatinine Est GFR ( Amer) Est GFR (Non-Af Amer) Random Glucose Calcium Total Bilirubin AST ALT Alkaline Phosphatase Lactate Dehydrogenase 419 Total Creatine Kinase 196 Troponin I < 0.01 Total Protein Albumin Globulin Albumin/Globulin Ratio Acetaminophen < 10.0 L EKG/Cardiology Studies: Cardiology / EKG Studies 02/22/17 EKG [ELECTROCARDIOGRAM] Routine Comment: Reason For Exam: cocaine...r/o ACS Attending/Attestation - Attestation I have personally seen and examined this patient.: Yes I have fully participated in the care of the patient.: Yes I have reviewed all pertinent clinical information: Yes Notes (Text): 02/22/17 17:00 47 y/o M s/p Multisubstance OD Found to have alveolar hypoventilation Intubated overnight w/o any new events. Awake this a.m and following commands. Passed SBT and extubated. Found to be agitated and threatening AMA. Psych to see the patient and start mood stabilizers. Start diet, PT/ot and plan for opiod abuse and withdrawl. dvt p Heparin sq tid cc time 55 min
--- NOTE | 2017-02-22 13:56 | CARD ---
APPROVED REPORT EKG Measurement Heart [id number] <Conclusion> Normal sinus rhythm Normal ECG
--- NOTE | 2017-02-22 15:10 | CARD ---
APPROVED REPORT EKG Measurement Heart [id number] <Conclusion> Sinus bradycardia Otherwise normal ECG
--- NOTE | 2017-02-22 18:11 | CON ---
DATE: 02/22/2017 HISTORY OF PRESENT ILLNESS: Shortly, the patient is a 47-year-old male with long and debil itating history of polysubstance abuse and dependence. The patient was brought in by EMS. The patie nt was found unresponsive in the community. The patient needed to have Narcan. The patient was intu bated and extubated today at the morning time at 10:00 a.m. After patient woke up, the patient wante d to leave against medical advice and that is why this screenplay writer got involved into the patient care. is screenplay writer is very familiar with the patient from the previous admissions under the same circumstances in ICU. This screenplay writer evaluated the patient. The patient presented to be confused. The patient was screaming, yelling that he wants to go to inpatient rehab in [place] and he was accepted. The patient said that he took extra pills yesterday, but at the same time, he denied any intent or plan to kill himself. The patient said that at present moment, he feels just fine and he wants to leave against m edical advice. When Dr. Aneesh Villarreal tried to educate patient about the consequences of leaving against medical advice, the patient deemed not to have capacity to process that information. The patient kep t repeating "I'm fine, I am fine, just let me go." The patient is disoriented in year. The patient t hinks that now is 1918. The patient is aware that right now it is February. The patient gave permission to speak to his . The patient's was contacted at [phone]. Her name is Vesna. Vesna s aid that today at the morning time, the patient spoke to her and expressed thoughts of harming himsel f, but the patient's does not feel that he truly wants to harm himself, but expressed her concer ns. The patient was educated at that present moment there is no option to sign against medical advic e because he just expressed thoughts of killing himself. The patient became agitated and wanted to l eave in any case. Then, patient was seen by social sciences research scientist, and social sciences research scientist explained that [place] rehab will save a bed for him. The patient seems to be much better and calmer. At the same time, e patient complained that he would have withdrawal symptoms, asked for Ativan for alcohol consumption as well as methadone. This screenplay writer gave stat dose of methadone 25 mg as well as Ativan 2 by mouth. The patient was appreciative. VITAL SIGNS: Reviewed. The patient has pulse rate of 57, blood pressure 141/82, oxygen saturation 1 00. MEDICATIONS: Reviewed. The patient is on dextrose, heparin, Ativan and Protonix. Methadone was giv en to the patient. The patient also was on propofol earlier. Geodon also was given to the patient I M. LABORATORY DATA: Reviewed. WBC cells low at 3.8, hemoglobin and hematocrit 13.0 and 37.9 respective ly. Chemistry reviewed. Potassium 3.5. Toxicology positive for opioids, benzodiazepines and cocain e. MENTAL STATUS EXAMINATION: The patient is confused, yelling, screaming, intermittent eye contact, wa s falling asleep and agitated in a few minutes after waking up. Speech was pressured, loud. Mood de scribed as "I'm fine." Affect is angry, irritable mood, and congruent. Thought process circumstanti al and tangential. Thought content: The patient denied visual, auditory, or tactile hallucinations. Denied paranoid ideations. The patient denied thoughts of harming himself or others, but as per co llateral information from his , the patient was expressing thoughts of harming himself and wished to be . Insight and judgment are very limited. Impulses are not predictable. IMPRESSION: The patient is in delirium stage. Most likely, the patient was using and misusing medic ation as well as opioids, cocaine and benzodiazepines. Polysubstance abuse and dependence. The jen ent is status post extubation. PLAN: This screenplay writer got involved because of evaluation of capacity to leave against medical advice. F rom this screenplay writer's perspective, patient does not have factual understanding of diagnosis, treatment as well as potential risk and consequences to leave against medical advice. Moreover, the patient has no insight and appreciation. The patient has reasoning ability, was able to indicate his preferences . The patient also expressed thoughts of dying today at the morning time. Based on that, patient la cks capacity to leave against medical advice, needs to stay in the hospital and we will follow up and advice accordingly. Methadone was given to the patient 25 mg stat. Ativan 2 mg 4 times a day was pre scribed. The patient was seen by social sciences research scientist. The patient was educated that he will be provided _ ____ in a bed will be saved in [place]. The patient was able to calm down. We will follow up and ad vise accordingly. Thank you very much for letting me participate in the care of your patient. Pat Rivera MD cc: [id number] TT: 02/22/2017 18:10:10 Confirmation # [id number] Dictation # [id number] ln
[2017-02-23] MEDS: Dextrose 5%/0.45% NS 1,000 ML IV SCH (05:22)
[2017-02-23 06:14] LABS: ADD MANUAL DIFF? NO
[2017-02-23 06:17] LABS: EOS # 0.1 (0.0-0.7); EOS % 3.2 % (1.5-5.0); GRAN # 1.49 (1.4-6.5); GRAN % 48.2 % (50.0-68.0); HEMATOCRIT 39.4 % (42.0-52.0); LYMPH # 1.2 (1.2-3.4); LYMPH % 37.9 % (22.0-35.0); MEAN CELL VOLUME 93.4 fL (80.0-105.0); MEAN CORPUSCULAR HGB CONC 33.2 g/dl (31.0-37.0); MEAN PLATELET VOLUME 10.8 fl (7.0-11.0); MONO # 0.3 (0.1-0.6); MONO % 10.7 % (1.0-6.0); PLATELET COUNT 141 10^3/uL (120.0-450.0); RED CELL DISTRIBUTION WIDTH 12.4 % (11.5-14.5); WHITE BLOOD COUNT 3.1 10^3/ul (4.5-11.0)
[2017-02-23 06:30] VITALS: BP 130/52; RESP 15; TEMP 98.7; O2SAT 100
[2017-02-23 06:36] LABS: ALB/GLOB RATIO 1.3 (1.1-1.8); ALKALINE PHOSPHATASE 46 U/L (38-133); ALT/SGPT 31 U/L (7-56); AST/SGOT 27 U/L (15-59); BILIRUBIN,TOTAL 0.7 mg/dL (0.2-1.3); BLOOD UREA NITROGEN 7 mg/dL (7-21); CALCIUM 8.8 mg/dL (8.4-10.5); CARBON DIOXIDE 28 mmol/L (21-33); CHLORIDE 110 mmol/L (98-107); GFR AFRICAN-AMERICAN > 60; GLUCOSE,RANDOM 95 mg/dL (70-110); POTASSIUM 4.2 mmol/L (3.6-5.0); SODIUM 141 mmol/L (132-148); TOTAL PROTEIN 6.2 g/dL (5.8-8.3)
--- NOTE | 2017-02-23 07:22 | PN ---
DATE: 02/23/2017 I examined the patient this morning. 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 The patient previously intubated in the Emergency Room, subsequently extubated and talking to the end user consultant this morning. He indicates no shortness of breath, no chest pain, no abdominal pain. No hematemesis or rectal bleeding noted. He reviewed the issue of exactly why he presented as he did. From what he understands, due to depression, resorted to alcohol intake and this combination with pain medication plus medications for psychiatric issues resulted in loss of consciousness and his current presentation. PHYSICAL EXAMINATION: VITAL SIGNS: I reviewed this patient's vital signs. HEENT: Noncontributory. LUNGS: Clear to auscultation. HEART: Regular rhythm. ABDOMEN: Soft, nontender. Normal bowel sounds. I reviewed this patient's laboratory data. The hematology is noncontributory. Chemistry significant for normal bilirubin plus transaminases as of yesterday. Labs from today are still pending. As indicated previously, his urine on admission significant for urine opiates, benzos and cocaine. Alcohol level at time of admission was less than 10. OVERALL ASSESSMENT: This is a 47-year-old white male, known to end user consultant, admitted with presentation of loss of consciousness and respiratory depression. The patient is currently awake, alert, oriented, extubated. Review of laboratory data indicates he had a good response from [facility] which was started in the Emergency Room and continued during his ICU stint. Laboratory data is pending from today, but I think the probability of liver toxicity is minimal due to rapid correction of his toxicity issue. The patient currently has no GI issues. Since there is nothing overtly acute going on that I can address directly, I will sign off the case today. Robby Hood DO, PhD cc: [id number] TT: 02/23/2017 07:21:46 Confirmation # [id number] Dictation # [id number] peg LAZAR
[2017-02-23 09:05] VITALS: PULSE 72
--- NOTE | 2017-02-23 09:18 | RAD ---
PROCEDURE: Radiographs of the Left Shoulder HISTORY: Acute on Chronic pain, Hx fall COMPARISON: No prior. FINDINGS: BONES: There is a left shoulder prosthesis. There is no fracture or loosening around the prosthesis. JOINTS: No evidence of dislocation SOFT TISSUES: Normal. OTHER FINDINGS: None. IMPRESSION: No acute findings
--- NOTE | 2017-02-23 14:32 | PN ---
DATE: 02/23/2017 Shortly, the patient is a 47-year-old male with self-reported history of bipolar disorder, history of polysubstance abuse and dependence. The patient was found to be unresponsive in the commu nity, was brought in to the hospital. The patient was intubated and Narcan was again. The patient a pparently overdosed on medication, but denied that it was a suicidal attempt. Based on yesterday's p resentation where maria alejandra ward was called twice, the patient was very confused, was not able to process the information. The patient was found to have lack of capacity to sign against medical advice yeste rday. The patient was in agreement to be on methadone as well as Ativan. The patient was followed up today. The patient presented to be alert, oriented, pleasant and cooperative. The patient said, "I was not in my right stage of mind. I'm glad that I stayed overnight." The patient reported no withdrawal sy mptoms from the opioids as well as benzodiazepines. The patient said that he is feeling stronger and better and he wants to go to inpatient rehab in [place]. The patient's family is arranging transpor tatcounts include [facility] beds [facility]. The patient reported his mood is optimistic. The patient has acknowledged that accidental o verdose could lead to . The patient said, "I feel happy to be alive. It's another chance in my life." The patient has future oriented plans. He wants to go back to his family and speak to his s on and daughter and explain what is going on, and he about his plan to go to inpatient rehab in [facility]. The patient was much more calm. Thought process is coherent and linear, and patient is doing mu ch better to compare with yesterday. VITAL SIGNS: Stable. Pulse is 72, respirations 15, oxygen saturation 100. MEDICATIONS: Reviewed. The patient is on dextrose, heparin, Motrin, Ativan 2 mg 4 times a day and i t will be recommended to decrease the dose to 3 times a day. The patient also is on Soma, Protonix a nd Lyrica. MENTAL STATUS EXAMINATION: The patient presented to be alert and oriented, pleasant, cooperative. F air eye contact. Speech was normal rate, tone, quality, and quantity. Mood described, "I feel much better. Yesterday I was not doing that well. I was very confused." The patient also has a more zoe ctive affect, mood congruent. Thought process was coherent and goal directed. Thought content: The patient denied visual, auditory, tactile hallucinations, denied paranoid ideations. The patient den ied thoughts of harming himself or others, denied intent or plan. Insight and judgment are fair. Im pulses are well controlled. IMPRESSION: Delirium due to overdose on medications, accidental. Much better. The patient is statu s post extubation day #2. The patient has self-reported history of bipolar disorder, polysubstance a buse and dependence. Please see medical team notes for more detailed information about medical issue s. PLAN: The patient sounds and presents much better. The patient has future oriented plans. The jen ent wants to go to inpatient rehab in [place]. The patient is willing to go to meetings [facility] meetin g and [place] program for dual diagnosis of bipolar disorder and polysubstance abuse and dependence. Th e patient was educated about naltrexone and the importance to stay abstinent. The patient's family s eems to be supportive. The patient has ticket for tomorrow to go to [place] at 6 a.m. at the morning time. The patient presented much better. There is no contraindication for the patient to be discha rged from psychiatric standpoint. This typewriter operator automatic will sign off. Should you have any questions, give me a call back. Pat Rivera MD cc: [id number] TT: 02/23/2017 14:32:03 Confirmation # [id number] Dictation # [id number] mn
--- NOTE | 2017-02-25 18:34 | CP.PCM.DIS ---
<FrankBang - Last Filed: 02/26/17 14:36> Provider - Provider Date of Admission: 02/21/17 18:20 Attending physician: Zoraida Villarreal MD Primary care physician: Cesar Kamara JD, MD Consults: ICU: Dr. Villarreal Psych: Dr. Stewart Time Spent in preparation of Discharge (in minutes): 45 Hospital Course - Lab Results Lab Results: Micro Results 02/21/17 19:30 Blood Blood Culture - Preliminary NO GROWTH AFTER 3 DAYS 02/21/17 19:00 Blood Blood Culture - Preliminary NO GROWTH AFTER 3 DAYS 02/21/17 22:00 Naris MRSA Culture (Admit) - Final MRSA NOT DETECTED Most Recent Lab Values WBC 3.1 10^3/ul (4.5-11.0) L 02/23/17 05:30 RBC 4.22 10^6/uL (3.5-6.1) 02/23/17 05:30 Hgb 13.1 gm/dL (14.0-18.0) L 02/23/17 05:30 Hct 39.4 % (42.0-52.0) L 02/23/17 05:30 MCV 93.4 fL (80.0-105.0) 02/23/17 05:30 MCH 31.0 pg (25.0-35.0) 02/23/17 05:30 MCHC 33.2 g/dl (31.0-37.0) 02/23/17 05:30 RDW 12.4 % (11.5-14.5) 02/23/17 05:30 Plt Count 141 10^3/uL (120.0-450.0) 02/23/17 05:30 MPV 10.8 fl (7.0-11.0) 02/23/17 05:30 Gran % 48.2 % (50.0-68.0) L 02/23/17 05:30 Lymph % (Auto) 37.9 % (22.0-35.0) H 02/23/17 05:30 [place] % (Auto) 10.7 % (1.0-6.0) H 02/23/17 05:30 Eos % (Auto) 3.2 % (1.5-5.0) 02/23/17 05:30 Baso % (Auto) 0.0 % (0.0-3.0) 02/23/17 05:30 Gran # 1.49 (1.4-6.5) 02/23/17 05:30 Lymph # 1.2 (1.2-3.4) 02/23/17 05:30 [place] # 0.3 (0.1-0.6) 02/23/17 05:30 Eos # 0.1 (0.0-0.7) 02/23/17 05:30 Baso # 0.00 K/mm3 (0.0-2.0) 02/23/17 05:30 PT 10.7 Seconds (9.9-11.8) 02/21/17 16:35 INR 0.99 (0.93-1.08) 02/21/17 16:35 APTT 26.9 Seconds (23.7-30.8) 02/21/17 16:35 pCO2 49 mm/Hg (35-45) H 02/22/17 05:45 pO2 160.0 mm/Hg (80-100) H 02/22/17 05:45 HCO3 28.3 mmol/L (21-28) H 02/22/17 05:45 ABG pH 7.37 (7.35-7.45) 02/22/17 05:45 ABG Total CO2 29.8 mmol.L (22-28) H 02/22/17 05:45 ABG O2 Saturation 98.9 % (95-98) H 02/22/17 05:45 ABG O2 Content 15.9 ML/dl (15-23) 02/22/17 05:45 ABG Base Excess 2.3 mmol/L (-2.0-3.0) 02/22/17 05:45 ABG Hemoglobin 11.6 g/dL (11.7-17.4) L 02/22/17 05:45 ABG Carboxyhemoglobin 2.0 % (0.5-1.5) H 02/22/17 05:45 POC ABG HHb (Measured) 1.1 % (0-5) 02/22/17 05:45 ABG Methemoglobin 1.1 % (0.0-3.0) 02/22/17 05:45 ABG O2 Capacity 16.1 mL/dl (16-24) 02/22/17 05:45 VBG pH 7.35 (7.32-7.43) 02/21/17 16:40 VBG pCO2 49.0 (40-60) 02/21/17 16:40 VBG HCO3 27.1 mmol/l (21-28) 02/21/17 16:40 VBG Total CO2 28.6 mmol.L (22-28) H 02/21/17 16:40 VBG O2 Sat (Calc) 93.2 % (40-65) H 02/21/17 16:40 VBG Base Excess 0.7 mmol/L (0.0-2.0) 02/21/17 16:40 VBG Potassium 3.9 mmol/L (3.6-5.2) 02/21/17 16:40 Hgb O2 Saturation 95.8 % (95.0-98.0) 02/22/17 05:45 Sodium 137.0 mmol/L (132-148) 02/21/17 16:40 Chloride 103.0 mmol/L (98-107) 02/21/17 16:40 Glucose 138 mg/dl (75-110) H 02/21/17 16:40 Lactate 1.6 mmol/L (0.7-2.1) 02/21/17 16:40 FiO2 40.0 % 02/22/17 05:45 Sodium 141 mmol/L (132-148) 02/23/17 05:30 Potassium 4.2 mmol/L (3.6-5.0) 02/23/17 05:30 Chloride 110 mmol/L (98-107) H 02/23/17 05:30 Carbon Dioxide 28 mmol/L (21-33) 02/23/17 05:30 Anion Gap 7 (10-20) L 02/23/17 05:30 BUN 7 mg/dL (7-21) 02/23/17 05:30 Creatinine 0.7 mg/dL (0.5-1.4) 02/23/17 05:30 Est GFR ( Amer) > 60 02/23/17 05:30 Est GFR (Non-Af Amer) > 60 02/23/17 05:30 Random Glucose 95 mg/dL (70-110) 02/23/17 05:30 Calcium 8.8 mg/dL (8.4-10.5) 02/23/17 05:30 Phosphorus 4.3 mg/dL (2.5-4.5) 02/21/17 16:35 Magnesium 2.1 mg/dL (1.7-2.2) 02/21/17 16:35 Total Bilirubin 0.7 mg/dL (0.2-1.3) 02/23/17 05:30 AST 27 U/L (15-59) 02/23/17 05:30 ALT 31 U/L (7-56) 02/23/17 05:30 Alkaline Phosphatase 46 U/L (38-133) 02/23/17 05:30 Lactate Dehydrogenase 419 U/L (333-699) 02/22/17 06:00 Total Creatine Kinase 196 U/L (35-230) 02/22/17 06:00 CK-MB (CK-2) 4.3 ng/mL (0.0-3.6) H 02/21/17 16:35 CK-MB (CK-2) % Cancelled 02/21/17 16:35 Troponin I < 0.01 ng/mL 02/22/17 06:00 Total Protein 6.2 g/dL (5.8-8.3) 02/23/17 05:30 Albumin 3.5 g/dL (3.0-4.8) 02/23/17 05:30 Globulin 2.7 gm/dL 02/23/17 05:30 Albumin/Globulin Ratio 1.3 (1.1-1.8) 02/23/17 05:30 Venous Blood Potassium 3.9 mmol/L (3.6-5.2) 02/21/17 16:40 Urine Color Light yellow (YELLOW) 02/21/17 16:48 Urine Appearance Clear (CLEAR) 02/21/17 16:48 Urine pH 6.0 (4.7-8.0) 02/21/17 16:48 Ur Specific [place] 1.020 (1.005-1.035) 02/21/17 16:48 Urine Protein Negative mg/dL (<30 mg/dL) 02/21/17 16:48 Urine Glucose (UA) Negative mg/dL (NEGATIVE) 02/21/17 16:48 Urine Ketones Negative mg/dL (NEGATIVE) 02/21/17 16:48 Urine Blood Negative (NEGATIVE) 02/21/17 16:48 Urine Nitrate Negative (NEGATIVE) 02/21/17 16:48 Urine Bilirubin Negative (NEGATIVE) 02/21/17 16:48 Urine Urobilinogen 0.2 E.U./dL (<1 E.U./dL) 02/21/17 16:48 Ur Leukocyte Esterase Negative Tri/uL (NEGATIVE) 02/21/17 16:48 Salicylates < 1 mg/dL (2.0-20.0) L 02/21/17 16:35 Urine Opiates Screen Positive (NEGATIVE) H 02/21/17 16:48 Urine Methadone Screen Negative (NEGATIVE) 02/21/17 16:48 Acetaminophen < 10.0 ug/ml (10.0-20.0) L 02/22/17 06:00 Ur Barbiturates Screen Negative (NEGATIVE) 02/21/17 16:48 Ur Phencyclidine Scrn Negative (NEGATIVE) 02/21/17 16:48 Ur Amphetamines Screen Negative (NEGATIVE) 02/21/17 16:48 U Benzodiazepines Scrn Positive (NEGATIVE) H 02/21/17 16:48 U Oth Cocaine Metabols Positive (NEGATIVE) H 02/21/17 16:48 U Cannabinoids Screen Negative (NEGATIVE) 02/21/17 16:48 Alcohol, Quantitative < 10 mg/dL (0-10) 02/21/17 16:35 - Hospital Course Hospital Course: 46 yo M was found by EMS unrespnosive, breathing slowly, hypotensive on street stairwell. Upon arrival in ED, Pt had pinpoint pupils, given 2 mg IV naloxone. Pt was successful extubated the following morning and satting at 100% on 2L NC. Pt agitated, attempted to leave AMA but doesn't have capacity according to Dr. Stewart, Psych as pt deemed to not have capacity on account of expressing suicidal intent to loved ones. Pt was chemically sedated with geodon. GI was consulted on account of pts long standing and significant GI hx of esophagitis, gastric bypass, however since no acute GI distress GI signed off. Pt the following day was much more calm and cooperative and admitted to left shoulder pain, same should he had surgery on. Xrays did no demonstrate any acute pathology. Pt expressed his interest in going to [place] to resume his plans to start a rehab program. Pt supported his decision and pt was confirmed to be going to rehab program. Pt was subsequently discharged with an ativan taper as per Psych. Discharge Exam - Head Exam Head Exam: ATRAUMATIC, NORMAL INSPECTION, NORMOCEPHALIC - Eye Exam Eye Exam: EOMI, Normal appearance, PERRL Pupil Exam: NORMAL ACCOMODATION, PERRL - ENT Exam ENT Exam: Mucous Membranes Moist - Respiratory Exam Respiratory Exam: Clear to PA & Lateral, NORMAL BREATHING PATTERN, UNREMARKABLE - Cardiovascular Exam Cardiovascular Exam: REGULAR RHYTHM, +S1, +S2 - GI/Abdominal Exam GI & Abdominal Exam: Normal Bowel Sounds - Extremities Exam Extremities exam: normal inspection - Neurological Exam Neurological exam: Alert, CN II-XII Intact, Normal Gait, Oriented x3, Reflexes Normal - Psychiatric Exam Psychiatric exam: Normal Affect, Normal Mood - Skin Skin Exam: Dry, Intact, Normal Color, Warm Discharge Plan - Discharge Medications Prescriptions: LORazepam [Ativan] See Taper PO DAILY #10 tab - Follow Up Plan Condition: SERIOUS Disposition: HOME/ ROUTINE Instructions: Acetaminophen Overdose (DC), Acetaminophen Overdose (GEN), Altered Mental Status (GEN) Additional Instructions: 1. Pt is to follow ativan taper as prescribed 2. Pt is to fu with PMD as soon as possible 3. Pt is to fu with Rehab plan as provided 4. Pt is welcomed to return to [facility] [place] if develop acute symptoms Referrals: Cesar Kamara JD, MD [Primary Care Provider] - <Zoraida Villarreal - Last Filed: 02/26/17 16:03> Provider - Provider Date of Admission: 02/21/17 18:20 Attending physician: Zoraida Villarreal MD Primary care physician: Cesar Kamara JD, MD Hospital Course - Lab Results Lab Results: Micro Results 02/21/17 19:30 Blood Blood Culture - Preliminary NO GROWTH AFTER 4 DAYS 02/21/17 19:00 Blood Blood Culture - Preliminary NO GROWTH AFTER 4 DAYS 02/21/17 22:00 Naris MRSA Culture (Admit) - Final MRSA NOT DETECTED Most Recent Lab Values WBC 3.1 10^3/ul (4.5-11.0) L 02/23/17 05:30 RBC 4.22 10^6/uL (3.5-6.1) 02/23/17 05:30 Hgb 13.1 gm/dL (14.0-18.0) L 02/23/17 05:30 Hct 39.4 % (42.0-52.0) L 02/23/17 05:30 MCV 93.4 fL (80.0-105.0) 02/23/17 05:30 MCH 31.0 pg (25.0-35.0) 02/23/17 05:30 MCHC 33.2 g/dl (31.0-37.0) 02/23/17 05:30 RDW 12.4 % (11.5-14.5) 02/23/17 05:30 Plt Count 141 10^3/uL (120.0-450.0) 02/23/17 05:30 MPV 10.8 fl (7.0-11.0) 02/23/17 05:30 Gran % 48.2 % (50.0-68.0) L 02/23/17 05:30 Lymph % (Auto) 37.9 % (22.0-35.0) H 02/23/17 05:30 [place] % (Auto) 10.7 % (1.0-6.0) H 02/23/17 05:30 Eos % (Auto) 3.2 % (1.5-5.0) 02/23/17 05:30 Baso % (Auto) 0.0 % (0.0-3.0) 02/23/17 05:30 Gran # 1.49 (1.4-6.5) 02/23/17 05:30 Lymph # 1.2 (1.2-3.4) 02/23/17 05:30 [place] # 0.3 (0.1-0.6) 02/23/17 05:30 Eos # 0.1 (0.0-0.7) 02/23/17 05:30 Baso # 0.00 K/mm3 (0.0-2.0) 02/23/17 05:30 PT 10.7 Seconds (9.9-11.8) 02/21/17 16:35 INR 0.99 (0.93-1.08) 02/21/17 16:35 APTT 26.9 Seconds (23.7-30.8) 02/21/17 16:35 pCO2 49 mm/Hg (35-45) H 02/22/17 05:45 pO2 160.0 mm/Hg (80-100) H 02/22/17 05:45 HCO3 28.3 mmol/L (21-28) H 02/22/17 05:45 ABG pH 7.37 (7.35-7.45) 02/22/17 05:45 ABG Total CO2 29.8 mmol.L (22-28) H 02/22/17 05:45 ABG O2 Saturation 98.9 % (95-98) H 02/22/17 05:45 ABG O2 Content 15.9 ML/dl (15-23) 02/22/17 05:45 ABG Base Excess 2.3 mmol/L (-2.0-3.0) 02/22/17 05:45 ABG Hemoglobin 11.6 g/dL (11.7-17.4) L 02/22/17 05:45 ABG Carboxyhemoglobin 2.0 % (0.5-1.5) H 02/22/17 05:45 POC ABG HHb (Measured) 1.1 % (0-5) 02/22/17 05:45 ABG Methemoglobin 1.1 % (0.0-3.0) 02/22/17 05:45 ABG O2 Capacity 16.1 mL/dl (16-24) 02/22/17 05:45 VBG pH 7.35 (7.32-7.43) 02/21/17 16:40 VBG pCO2 49.0 (40-60) 02/21/17 16:40 VBG HCO3 27.1 mmol/l (21-28) 02/21/17 16:40 VBG Total CO2 28.6 mmol.L (22-28) H 02/21/17 16:40 VBG O2 Sat (Calc) 93.2 % (40-65) H 02/21/17 16:40 VBG Base Excess 0.7 mmol/L (0.0-2.0) 02/21/17 16:40 VBG Potassium 3.9 mmol/L (3.6-5.2) 02/21/17 16:40 Hgb O2 Saturation 95.8 % (95.0-98.0) 02/22/17 05:45 Sodium 137.0 mmol/L (132-148) 02/21/17 16:40 Chloride 103.0 mmol/L (98-107) 02/21/17 16:40 Glucose 138 mg/dl (75-110) H 02/21/17 16:40 Lactate 1.6 mmol/L (0.7-2.1) 02/21/17 16:40 FiO2 40.0 % 02/22/17 05:45 Sodium 141 mmol/L (132-148) 02/23/17 05:30 Potassium 4.2 mmol/L (3.6-5.0) 02/23/17 05:30 Chloride 110 mmol/L (98-107) H 02/23/17 05:30 Carbon Dioxide 28 mmol/L (21-33) 02/23/17 05:30 Anion Gap 7 (10-20) L 02/23/17 05:30 BUN 7 mg/dL (7-21) 02/23/17 05:30 Creatinine 0.7 mg/dL (0.5-1.4) 02/23/17 05:30 Est GFR ( Amer) > 60 02/23/17 05:30 Est GFR (Non-Af Amer) > 60 02/23/17 05:30 Random Glucose 95 mg/dL (70-110) 02/23/17 05:30 Calcium 8.8 mg/dL (8.4-10.5) 02/23/17 05:30 Phosphorus 4.3 mg/dL (2.5-4.5) 02/21/17 16:35 Magnesium 2.1 mg/dL (1.7-2.2) 02/21/17 16:35 Total Bilirubin 0.7 mg/dL (0.2-1.3) 02/23/17 05:30 AST 27 U/L (15-59) 02/23/17 05:30 ALT 31 U/L (7-56) 02/23/17 05:30 Alkaline Phosphatase 46 U/L (38-133) 02/23/17 05:30 Lactate Dehydrogenase 419 U/L (333-699) 02/22/17 06:00 Total Creatine Kinase 196 U/L (35-230) 02/22/17 06:00 CK-MB (CK-2) 4.3 ng/mL (0.0-3.6) H 02/21/17 16:35 CK-MB (CK-2) % Cancelled 02/21/17 16:35 Troponin I < 0.01 ng/mL 02/22/17 06:00 Total Protein 6.2 g/dL (5.8-8.3) 02/23/17 05:30 Albumin 3.5 g/dL (3.0-4.8) 02/23/17 05:30 Globulin 2.7 gm/dL 02/23/17 05:30 Albumin/Globulin Ratio 1.3 (1.1-1.8) 02/23/17 05:30 Venous Blood Potassium 3.9 mmol/L (3.6-5.2) 02/21/17 16:40 Urine Color Light yellow (YELLOW) 02/21/17 16:48 Urine Appearance Clear (CLEAR) 02/21/17 16:48 Urine pH 6.0 (4.7-8.0) 02/21/17 16:48 Ur Specific [place] 1.020 (1.005-1.035) 02/21/17 16:48 Urine Protein Negative mg/dL (<30 mg/dL) 02/21/17 16:48 Urine Glucose (UA) Negative mg/dL (NEGATIVE) 02/21/17 16:48 Urine Ketones Negative mg/dL (NEGATIVE) 02/21/17 16:48 Urine Blood Negative (NEGATIVE) 02/21/17 16:48 Urine Nitrate Negative (NEGATIVE) 02/21/17 16:48 Urine Bilirubin Negative (NEGATIVE) 02/21/17 16:48 Urine Urobilinogen 0.2 E.U./dL (<1 E.U./dL) 02/21/17 16:48 Ur Leukocyte Esterase Negative Tri/uL (NEGATIVE) 02/21/17 16:48 Salicylates < 1 mg/dL (2.0-20.0) L 02/21/17 16:35 Urine Opiates Screen Positive (NEGATIVE) H 02/21/17 16:48 Urine Methadone Screen Negative (NEGATIVE) 02/21/17 16:48 Acetaminophen < 10.0 ug/ml (10.0-20.0) L 02/22/17 06:00 Ur Barbiturates Screen Negative (NEGATIVE) 02/21/17 16:48 Ur Phencyclidine Scrn Negative (NEGATIVE) 02/21/17 16:48 Ur Amphetamines Screen Negative (NEGATIVE) 02/21/17 16:48 U Benzodiazepines Scrn Positive (NEGATIVE) H 02/21/17 16:48 U Oth Cocaine Metabols Positive (NEGATIVE) H 02/21/17 16:48 U Cannabinoids Screen Negative (NEGATIVE) 02/21/17 16:48 Alcohol, Quantitative < 10 mg/dL (0-10) 02/21/17 16:35 Attending/Attestation - Attestation I have personally seen and examined this patient.: Yes I have fully participated in the care of the patient.: Yes I have reviewed all pertinent clinical information, including history, physical exam and plan: Yes Notes (Text): I have seen and examined patient at bedside. This is 47 year old male with history of esophagitis who got admitted after polysubstance overdose (klonopin and tylenol). He also required intubation. Soon after extubation he wanted to leave AMA however he was deemed incapable of making decision. By the next day, he had a second evaluation by psychiatrist, he was discharged in the presence of his . As per patients , he is going to [place] to start rehab program. Ativan tapering doses was recommended by Dr Stewart. Patient and his was explained about that. Patient denies suicidal ideation and expressed in interest in going to rehab in [place]. Dr Zoraida Villarreal
== END 2017-02-23 18:52 | disposition home or self-care (01) | DRG 918 ==
LOC: ED 16:23 → ERH 18:20 → MERGE 18:20 → ERH 19:50 → CCU 21:12 → 3RSO 02-23 09:37
PROVIDERS: ADMIT Internal Medicine; ATTEND Hospitalist
PROC: 5A1935Z Respiratory Ventilation, Less than 24 Consecutive Hours (ICD-10-PCS; principal; 2017-02-21)
PROC: 0BH17EZ Insertion of Endotracheal Airway into Trachea, Via Natural or Artificial Opening (ICD-10-PCS; 2017-02-21)
DX: T39.1X1A Poisoning by 4-Aminophenol derivatives, accidental (unintentional), initial encounter (principal); I95.9 Hypotension, unspecified; F19.20 Other psychoactive substance dependence, uncomplicated; T40.601A Poisoning by unspecified narcotics, accidental (unintentional), initial encounter; T42.4X1A Poisoning by benzodiazepines, accidental (unintentional), initial encounter; R00.1 Bradycardia, unspecified; D64.9 Anemia, unspecified; R41.0 Disorientation, unspecified; R06.89 Other abnormalities of breathing; K11.5 Sialolithiasis; Z87.11 Personal history of peptic ulcer disease

== ENCOUNTER 2017-05-22 15:20 | Observation (INO) | payer MEDICARE, OTHER ==
[2017-05-22] MEDS ORDERED: Naloxone 0.4 mg/ml Inj (Adult) ONE (15:38)
[2017-05-22] MEDS ORDERED: Naloxone 0.4 mg/ml Inj (Adult) IVP STA (15:40)
[2017-05-22 15:56] LABS: BASO # 0.01 K/mm3 (0.0-2.0); BASO % 0.1 % (0.0-3.0); EOS # 0.2 (0.0-0.7); GRAN # 5.38 (1.4-6.5); GRAN % 70.1 % (50.0-68.0); HEMATOCRIT 38.6 % (42.0-52.0); LYMPH # 1.6 (1.2-3.4); LYMPH % 20.5 % (22.0-35.0); MEAN CELL VOLUME 91.5 fl (80.0-105.0); MEAN CORPUSCULAR HEMOGLOBIN 31.8 pg (25.0-35.0); MEAN CORPUSCULAR HGB CONC 34.7 g/dl (31.0-37.0); MONO # 0.6 (0.1-0.6); MONO % 7.3 % (1.0-6.0); RED CELL DISTRIBUTION WIDTH 12.7 % (11.5-14.5); WHITE BLOOD COUNT 7.7 10^3/ul (4.5-11.0)
[2017-05-22 16:06] LABS: ALB/GLOB RATIO 1.5 (1.1-1.8); ALKALINE PHOSPHATASE 60 U/L (38-126); ALT/SGPT 53 U/L (7-56); AST/SGOT 56 U/L (17-59); BILIRUBIN,TOTAL 0.5 mg/dL (0.2-1.3); BLOOD UREA NITROGEN 11 mg/dL (7-21); CARBON DIOXIDE 26 mmol/L (21-33); CHLORIDE 105 mmol/L (98-107); GFR AFRICAN-AMERICAN > 60; GLUCOSE,RANDOM 82 mg/dL (70-110); POTASSIUM 3.9 mmol/L (3.6-5.0); SODIUM 142 mmol/L (132-148); TOTAL PROTEIN 7.2 g/dL (5.8-8.3)
[2017-05-22 16:12] LABS: ARTERIAL BLOOD GAS HCO3 26.6 mmol/L (21-28); ARTERIAL BLOOD GAS O2 CAPACITY 15.5 mL/dl (16-24); ARTERIAL BLOOD GAS O2 CONTENT 15.1 ML/dl (15-23); ARTERIAL BLOOD HGB O2 SAT 90.5 % (95.0-98.0); CARBOXYHEMOGLOBIN 6.7 % (0.5-1.5); HHB 2.3 % (0-5); METHEMOGLOBIN 0.5 % (0.0-3.0)
--- NOTE | 2017-05-22 17:18 | CT ---
PROCEDURE: CT HEAD WITHOUT CONTRAST. HISTORY: r/o ICH COMPARISON: Noncontrast head CT performed 12/12/16 TECHNIQUE: Axial computed tomography images were obtained through the head/brain without intravenous contrast. Radiation dose: Total exam DLP = 774.23 mGy-cm. This CT exam was performed using one or more of the following dose reduction techniques: Automated exposure control, adjustment of the mA and/or kV according to patient size, and/or use of iterative reconstruction technique. FINDINGS: Examination limited by streak artifact. HEMORRHAGE: No intracranial hemorrhage. BRAIN: No mass effect or edema. The ward-white matter differentiation appears intact. Please note that MRI with diffusion imaging is more sensitive in the detection of acute ischemic event. VENTRICLES: No hydrocephalus. CALVARIUM: Unremarkable. PARANASAL SINUSES: Unremarkable as visualized. No significant inflammatory changes. MASTOID AIR CELLS: Unremarkable as visualized. No inflammatory changes. OTHER FINDINGS: Partial opacification of the external auditory canals bilaterally ; likely cerumen. IMPRESSION: No acute intracranial pathology identified.
--- NOTE | 2017-05-22 18:11 | ED PDOC ---
Arrival/HPI - General Chief Complaint: Substance Abuse Time Seen by Provider: 05/22/17 15:22 Historian: EMS - History of Present Illness Narrative History of Present Illness (Text): 05/22/17 18:07 A 47 year old male, whose past medical history includes AMS, drug dependence, opiate overdose, acute respiratory failure, and rhabdomyolysis, presents to the emergency department brought in via EMS when patient was found on the street, prior to arrival. No known etiology, patient is responsive to painful stimuli, and patient can not give any history at this time. Time/Duration: Prior to Arrival Symptom Onset: Sudden Activities at Onset: Significant Context: Street Past Medical History - Provider Review Nursing Documentation Reviewed: Yes - Infectious Disease Hx of Infectious Diseases: None - Tetanus Immunization Tetanus Immunization: Unknown - Past Medical History Past Medical History: Unable to Obtain - Cardiac Other/Comment: Not available. - Pulmonary Other/Comment: Not available. - Neurological Other/Comment: Not available. - HEENT Other/Comment: Not available. - Renal Other/Comment: Not available. - Endocrine/Metabolic Other/Comment: Not available. - Hematological/Oncological Other/Comment: Not available. - Integumentary Other/Comment: Not available. - Musculoskeletal/Rheumatological Hx Falls: No Other/Comment: Not available. - Gastrointestinal Other/Comment: Not available. - Genitourinary/Gynecological Other/Comment: Not available. - Psychiatric Hx Psychophysiologic Disorder: Yes Hx Anxiety: Yes Hx Bipolar Disorder: Yes Hx Depression: Yes Hx Substance Use: Yes - Past Surgical History Past Surgical History: Unable to Obtain - Surgical History Other/Comment: Not available. - Anesthesia Hx Anesthesia: Yes Hx Anesthesia Reactions: Yes (severe vomiting) Hx Malignant Hyperthermia: No - Suicidal Assessment Feels Threatened In Home Enviroment: No Family/Social History - Physician Review Nursing Documentation Reviewed: Yes Family/Social History: No Known Family HX Smoking Status: Unknown If Ever Smoked Hx Alcohol Use: Yes Hx Substance Use: Yes Substance used: oxy Allergies/Home Meds Allergies/Adverse Reactions: Allergies No Known Allergies Allergy (Verified 05/22/17 15:26) Home Medications: Home Meds Medication Instructions Recorded Confirmed buPROPion XL [Wellbutrin XL] 150 mg PO DAILY 12/12/16 05/22/17 Buprenorphine HCl/Naloxone HCl 1 film SL BID 02/22/17 05/22/17 [Suboxone 8 mg-2 mg Sl Film] Carisoprodol [Soma] 350 mg PO QID PRN 02/22/17 05/22/17 Fluoxetine HCl [Prozac] 40 mg PO DAILY 02/22/17 05/22/17 Ibuprofen [Motrin Tab] 800 mg PO TID PRN 02/22/17 05/22/17 OLANZapine [Zyprexa] 10 mg PO DAILY 02/22/17 05/22/17 Omeprazole [Omeprazole] 40 mg PO DAILY 02/22/17 05/22/17 Pregabalin [Lyrica] 100 mg PO TID 02/22/17 05/22/17 QUEtiapine [SEROquel] 100 mg PO HS 02/22/17 05/22/17 clonazePAM [clonAZEPAM] 1 mg PO QID 02/22/17 05/22/17 Review of Systems - Physician Review All systems were reviewed & negative as marked: Yes - Review of Systems Systems not reviewed;Unavailable: Intoxicated Physical Exam Vital Signs Temp Pulse Resp BP Pulse Ox 05/22/17 18:05 79 16 137/87 100 05/22/17 15:21 98.9 F 100 H 18 122/80 94 L Temperature: Afebrile Blood Pressure: Normal Pulse: Tachycardic Respiratory Rate: Normal Appearance: Positive for: Well-Appearing, Non-Toxic, Comfortable Pain Distress: None Mental Status: Positive for: Alert and Oriented X 3 - Systems Exam Head: Present: Atraumatic, Normocephalic Pupils: Present: PERRL Extroacular Muscles: Present: EOMI Conjunctiva: Present: Normal Mouth: Present: Dry, Other (White unknown powder substance found in mouth ) Neck: Present: Normal Range of Motion Respiratory/Chest: Present: Clear to Auscultation, Good Air Exchange. No: Respiratory Distress, Accessory Muscle Use Cardiovascular: Present: Regular Rate and Rhythm, Normal S1, S2. No: Murmurs Abdomen: Present: Normal Bowel Sounds. No: Tenderness, Distention, Peritoneal Signs Back: Present: Normal Inspection Upper Extremity: Present: Normal Inspection. No: Cyanosis, Edema Lower Extremity: Present: Normal Inspection. No: Edema Neurological: Present: GCS=15, CN II-XII Intact, Speech Normal Skin: Present: Warm, Dry, Normal Color. No: Rashes Psychiatric: Present: Alert, Oriented x 3, Normal Insight, Normal Concentration Medical Decision Making ED Course and Treatment: 05/22/17 18:09 Impression: A 47 year old male brought in by ems for unknown etiology. Differential Diagnosis included but are not limited to: Plan: -- EKG -- Narcan -- Admit to hospital -- Reassess and disposition Prior Visits: Notes and results from previous visits were reviewed. The patient was last seen in the emergency department on 02/21/17 for overdose and respiratory distress. The patient was hospitalized. Progress Notes: EKG: Ordered, reviewed, and independently interpreted the EKG. Rate : 98 BPM Rhythm : NSR Interpretation : Normal axis, normal intervals, normal QT syndrome. Comparison : No previous EKG for comparison. 05/22/17 21:42 Upon re-evaluation, the patient is awake and admits to chewing 6-7 oxycontin pills prior to arrival. - Lab Interpretations Lab Results: 05/22/17 15:30 05/22/17 15:30 Lab Results 05/22/17 15:30: Alcohol, Quantitative 43 H 05/22/17 15:30: Salicylates < 1 L, Acetaminophen < 10.0 L 05/22/17 15:30: Urine Opiates Screen Negative, Urine Methadone Screen Negative, Ur Barbiturates Screen Negative, Ur Phencyclidine Scrn Negative, Ur Amphetamines Screen Negative, U Benzodiazepines Scrn Negative, U Oth Cocaine Metabols Negative, U Cannabinoids Screen Negative 05/22/17 15:30: Sodium 142, Potassium 3.9, Chloride 105, Carbon Dioxide 26, Anion Gap 15, BUN 11, Creatinine 0.8, Est GFR ( Amer) > 60, Est GFR (Non- Af Amer) > 60, Random Glucose 82, Calcium 9.0, Total Bilirubin 0.5, AST 56, ALT 53, Alkaline Phosphatase 60, Total Protein 7.2, Albumin 4.3, Globulin 2.9, Albumin/Globulin Ratio 1.5 05/22/17 15:30: WBC 7.7 D, RBC 4.22, Hgb 13.4 L, Hct 38.6 L, MCV 91.5, MCH 31.8 , MCHC 34.7, RDW 12.7, Plt Count 171, MPV 10.0, Gran % 70.1 H, Lymph % (Auto) 20.5 L, [place] % (Auto) 7.3 H, Eos % (Auto) 2.0, Baso % (Auto) 0.1, Gran # 5.38, Lymph # 1.6, [place]wey # 0.6, Eos # 0.2, Baso # 0.01 - Medication Orders Current Medication Orders: Sodium Chloride (Sodium Chloride 0.9%) 1,000 mls @ 999 mls/hr IV .Q1H1M STA Stop: 05/22/17 22:18 Discontinued Medications Naloxone HCl (Narcan) Confirm Administered Dose 0.4 mg .ROUTE .STK-MED ONE Stop: 05/22/17 15:39 Last Admin: 05/22/17 16:05 Dose: 0.4 mg Naloxone HCl (Narcan) 0.4 mg IVP STAT STA Stop: 05/22/17 15:41 Last Admin: 05/22/17 16:05 Dose: - Scribe Statement The provider has reviewed the documentation as recorded by the Haleyibmily Duarte Provider Scribe Attestation: All medical record entries made by the Scribe were at my direction and personally dictated by me. I have reviewed the chart and agree that the record accurately reflects my personal performance of the history, physical exam, medical decision making, and the department course for this patient. I have also personally directed, reviewed, and agree with the discharge instructions and disposition. Disposition/Present on Arrival - Present on Arrival Any Indicators Present on Arrival: No History of DVT/PE: No History of Uncontrolled Diabetes: No Urinary Catheter: No History of Decub. Ulcer: No History Surgical Site Infection Following: None - Disposition Have Diagnosis and Disposition been Completed?: Yes Diagnosis: Drug abuse, Drug dependence Disposition: HOSPITALIZED Disposition Time: 21:50 Patient Plan: Admission Condition: FAIR
[2017-05-22] MEDS ORDERED: Sodium Chloride 0.9% 1,000 ML IV STA (21:18)
--- NOTE | 2017-05-22 22:53 | CP.PCM.HP ---
<HERLINDAJULIANE - Last Filed: 05/22/17 23:30> History of Present Illness - History of Present Illness History of Present Illness: Juliane Wallace, PGY1, H&P for Dr. Jorgensen: CC: AMS 47M with PMH polysubastance use, drug overdose requiring intubation in the past , presents for AMS. Pt was found on the street, responsive to painful stimuli. Pt states that he chewed up oxycodone tablet. Otherwise, not answering many questions in ED. In ED, VS wnl, cbc and CMP unremarkable, AST/ALt nrml, etoh 43 , UDS neg, ABG shows pH 7.4, no acidosis/alkalosis/hypoxia. Currently, pt AOx4, still drowsy, but more awake than before (as per ED nurse), follows some commands, and answers some questions, denies cp, cough, confusion, urinary symptoms. ROS unobtainable bc pt drowsy, obtained from previous records in EMR. PMD: unknown PMH: Polysubstance abuse, opiate overdose, acute resp failure, rhabdomyolysis, Hepatitis C, esophagitis,, chronic alcoholism PSH: gastric bypass, back surgery, recent rotator cuff surgery All: NKA Home Medications: see emr Social History: lives with family; substance abuse and alcoholic (unknown amount); no further history obtainable Present on Admission - Present on Admission Any Indicators Present on Admission: No History of DVT/PE: No History of Uncontrolled Diabetes: No Urinary Catheter: No Decubitus Ulcer Present: No History Surgical Site Infection Following: None Review of Systems - Review of Systems Systems not reviewed;Unavailable: Altered Mental Status, Intoxicated Past Patient History - Infectious Disease Hx of Infectious Diseases: None - Tetanus Immunizations Tetanus Immunization: Unknown - Past Medical History & Family History Past Medical History?: No - Past Social History Smoking Status: Unknown If Ever Smoked - CARDIAC Other/Comment: Not available. - PULMONARY Other/Comment: Not available. - NEUROLOGICAL Other/Comment: Not available. - HEENT Other/Comment: Not available. - RENAL Other/Comment: Not available. - ENDOCRINE/METABOLIC Other/Comment: Not available. - HEMATOLOGICAL/ONCOLOGICAL Other/Comment: Not available. - INTEGUMENTARY Other/Comment: Not available. - MUSCULOSKELETAL/RHEUMATOLOGICAL Hx Falls: No Other/Comment: Not available. - GASTROINTESTINAL Other/Comment: Not available. - GENITOURINARY/GYNECOLOGICAL Other/Comment: Not available. - PSYCHIATRIC Hx Psychophysiologic Disorder: Yes Hx Anxiety: Yes Hx Bipolar Disorder: Yes Hx Depression: Yes Hx Substance Use: Yes - SURGICAL HISTORY Other/Comment: Not available. - ANESTHESIA Hx Anesthesia: Yes Hx Anesthesia Reactions: Yes (severe vomiting) Hx Malignant Hyperthermia: No Meds Allergies/Adverse Reactions: Allergies Allergy/AdvReac Type Severity Reaction Status Date / Time No Known Allergies Allergy Verified 05/22/17 15:26 Physical Exam - Constitutional Appears: Non-toxic, Unkempt, Older Than Stated Age Additional comments: drowsy - Head Exam Head Exam: ATRAUMATIC, NORMOCEPHALIC - Eye Exam Eye Exam: Normal appearance. absent: Conjunctival injection, Scleral icterus Pupil Exam: absent: Unequal Additional comments: sluggish pupillary reaction to light, no pinpoint pupils. - ENT Exam ENT Exam: Mucous Membranes Moist - Neck Exam Neck exam: Negative for: Lymphadenopathy, Thyromegaly - Respiratory Exam Respiratory Exam: Clear to Auscultation Bilateral. absent: Accessory Muscle Use , Rales, Rhonchi, Wheezes - Cardiovascular Exam Cardiovascular Exam: RRR, +S1, +S2. absent: JVD, Systolic Murmur - GI/Abdominal Exam GI & Abdominal Exam: Distended, Normal Bowel Sounds. absent: Guarding, Rebound , Tenderness - Extremities Exam Extremities exam: Positive for: pedal pulses present. Negative for: calf tenderness, pedal edema - Back Exam Back exam: NORMAL INSPECTION. absent: rash noted - Neurological Exam Neurological exam: Alert, Oriented x3, Reflexes Normal - Psychiatric Exam Psychiatric exam: Normal Affect - Skin Skin Exam: Dry, Warm Results - Vital Signs Recent Vital Signs: Last Vital Signs Temp 98.9 F 05/22/17 15:21 Pulse 79 05/22/17 18:05 Resp 16 05/22/17 18:05 BP 137/87 05/22/17 18:05 Pulse Ox 100 05/22/17 18:05 - Labs Result Diagrams: 05/22/17 15:30 05/22/17 15:30 Labs: Laboratory Results - last 24 hr 05/22/17 16:05 pCO2 43 pO2 126.0 H HCO3 26.6 ABG pH 7.40 ABG Total CO2 27.9 ABG O2 Saturation 97.5 ABG O2 Content 15.1 ABG Base Excess 1.5 ABG Hemoglobin 11.7 ABG Carboxyhemoglobin 6.7 H POC ABG HHb (Measured) 2.3 ABG Methemoglobin 0.5 ABG O2 Capacity 15.5 L Hgb O2 Saturation 90.5 L FiO2 32.0 Assessment & Plan - Assessment and Plan (Free Text) Assessment: 47M with PMH polysubstance use, acute opiate overdose requiring prior intubations, admitted for AMS. Plan: AMS: - 2/2 alcohol use vs substance use vs seizures vs infxn vs other neuro disorder - ETOh level 40. UDS screen neg in ED. Will repeat UDS. - ABg unremarkable. will obtain lactate level. - Obtain Neuro c/s - Dr Miner - Fall/seizure precautions - On telemetry Alcohol withdrawal: - pt a chronic alcoholic - CIWA protocol. PRN ativan. GI PPX: Pepcid DVT PPX: SCDs Juliane Wallace PGY1 - Date & Time Date: 05/23/17 Time: 01:00 <Jessica Jorgensen - Last Filed: 05/23/17 05:43> Results - Vital Signs Recent Vital Signs: Last Vital Signs Temp 97.4 F L 05/23/17 00:24 Pulse 70 05/23/17 02:00 Resp 18 05/23/17 00:24 BP 135/86 05/23/17 00:24 Pulse Ox 99 05/22/17 23:41 - Labs Result Diagrams: 05/22/17 15:30 05/22/17 15:30 Labs: Laboratory Results - last 24 hr 05/22/17 05/23/17 05/23/17 16:05 00:04 00:04 pCO2 43 pO2 126.0 H 46 HCO3 26.6 ABG pH 7.40 ABG Total CO2 27.9 ABG O2 Saturation 97.5 ABG O2 Content 15.1 ABG Base Excess 1.5 ABG Hemoglobin 11.7 ABG Carboxyhemoglobin 6.7 H POC ABG HHb (Measured) 2.3 ABG Methemoglobin 0.5 ABG O2 Capacity 15.5 L VBG pH 7.32 VBG pCO2 65.0 H VBG HCO3 33.5 H VBG Total CO2 35.5 H VBG O2 Sat (Calc) 85.7 H VBG Base Excess 5.3 H VBG Potassium 4.3 Hgb O2 Saturation 90.5 L Sodium 142.0 Chloride 107.0 Glucose 91 Lactate 1.0 FiO2 32.0 21.0 Venous Blood Potassium 4.3 Urine Opiates Screen Negative Urine Methadone Screen Negative Ur Barbiturates Screen Negative Ur Phencyclidine Scrn Negative Ur Amphetamines Screen Negative U Benzodiazepines Scrn Negative U Oth Cocaine Metabols Negative U Cannabinoids Screen Negative Attending/Attestation - Attestation I have personally seen and examined this patient.: Yes I have fully participated in the care of the patient.: Yes I have reviewed all pertinent clinical information: Yes Notes (Text): 05/23/17 05:20 Patient was seen when he was in bed # 3 in the ER. Agree with history, physical examination, assessment and plan. Following should be added. 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
[2017-05-22 23:34] LABS: MAGNESIUM 1.9 mg/dL (1.7-2.2); PHOSPHOROUS 2.8 mg/dL (2.5-4.5)
[2017-05-23 00:10] LABS: VENOUS BLOOD GAS BASE EXCESS 5.3 mmol/L (0.0-2.0); VENOUS BLOOD PH 7.32 (7.32-7.43)
[2017-05-23 01:00] VITALS: BMI 25.8
[2017-05-23 06:08] VITALS: BP 138/84; RESP 19; TEMP 98.4; O2SAT 98
[2017-05-23] MEDS ORDERED: Multi Vitamins 15 mL UD Oral Solution PO SCH (08:00)
[2017-05-23 09:35] LABS: BASO # 0.01 K/mm3 (0.0-2.0); BASO % 0.2 % (0.0-3.0); EOS # 0.2 (0.0-0.7); EOS % 3.4 % (1.5-5.0); GRAN # 3.75 (1.4-6.5); GRAN % 70.6 % (50.0-68.0); HEMATOCRIT 40.2 % (42.0-52.0); LYMPH # 0.9 (1.2-3.4); MEAN CELL VOLUME 91.8 fl (80.0-105.0); MEAN CORPUSCULAR HEMOGLOBIN 30.8 pg (25.0-35.0); MEAN CORPUSCULAR HGB CONC 33.6 g/dl (31.0-37.0); MEAN PLATELET VOLUME 10.2 fl (7.0-11.0); MONO # 0.5 (0.1-0.6); MONO % 9.8 % (1.0-6.0); RED CELL DISTRIBUTION WIDTH 12.8 % (11.5-14.5); WHITE BLOOD COUNT 5.3 10^3/ul (4.5-11.0)
[2017-05-23 09:44] LABS: ALB/GLOB RATIO 1.2 (1.1-1.8); ALKALINE PHOSPHATASE 70 U/L (38-126); ALT/SGPT 46 U/L (7-56); AST/SGOT 43 U/L (17-59); BILIRUBIN,TOTAL 1.1 mg/dL (0.2-1.3); BLOOD UREA NITROGEN 10 mg/dL (7-21); CALCIUM 8.9 mg/dL (8.4-10.5); CARBON DIOXIDE 32 mmol/L (21-33); CHLORIDE 105 mmol/L (95-110); GFR AFRICAN-AMERICAN > 60; GLUCOSE,RANDOM 100 mg/dL (70-110); POTASSIUM 4.1 mmol/L (3.6-5.0); SODIUM 142 mmol/L (132-148); TOTAL PROTEIN 6.7 g/dL (5.8-8.3)
[2017-05-23 09:46] LABS: INR 0.95 (0.93-1.08)
[2017-05-23] MEDS ORDERED: Folic Acid 1 MG in Sodium Chloride 0.9% 50 ML IV SCH (10:00)
--- NOTE | 2017-05-23 10:10 | CP.PCM.DIS ---
Provider - Provider Date of Admission: 05/22/17 15:54 Attending physician: Chance Tirado MD Consults: Neuro: Albertoya Time Spent in preparation of Discharge (in minutes): 45 Diagnosis - Discharge Diagnosis (1) Drug abuse Status: Chronic Priority: Medium (2) Altered mental status Status: Acute Priority: High Hospital Course - Lab Results Lab Results: Most Recent Lab Values WBC 5.3 10^3/ul (4.5-11.0) D 05/23/17 09:15 RBC 4.38 10^6/uL (3.5-6.1) 05/23/17 09:15 Hgb 13.5 g/dL (14.0-18.0) L 05/23/17 09:15 Hct 40.2 % (42.0-52.0) L 05/23/17 09:15 MCV 91.8 fl (80.0-105.0) 05/23/17 09:15 MCH 30.8 pg (25.0-35.0) 05/23/17 09:15 MCHC 33.6 g/dl (31.0-37.0) 05/23/17 09:15 RDW 12.8 % (11.5-14.5) 05/23/17 09:15 Plt Count 163 10^3/uL (120.0-450.0) 05/23/17 09:15 MPV 10.2 fl (7.0-11.0) 05/23/17 09:15 Gran % 70.6 % (50.0-68.0) H 05/23/17 09:15 Lymph % (Auto) 16.0 % (22.0-35.0) L 05/23/17 09:15 [place] % (Auto) 9.8 % (1.0-6.0) H 05/23/17 09:15 Eos % (Auto) 3.4 % (1.5-5.0) 05/23/17 09:15 Baso % (Auto) 0.2 % (0.0-3.0) 05/23/17 09:15 Gran # 3.75 (1.4-6.5) 05/23/17 09:15 Lymph # 0.9 (1.2-3.4) L 05/23/17 09:15 [place] # 0.5 (0.1-0.6) 05/23/17 09:15 Eos # 0.2 (0.0-0.7) 05/23/17 09:15 Baso # 0.01 K/mm3 (0.0-2.0) 05/23/17 09:15 PT 10.3 Seconds (9.9-11.8) 05/23/17 09:15 INR 0.95 (0.93-1.08) 05/23/17 09:15 pCO2 43 mm/Hg (35-45) 05/22/17 16:05 pO2 46 mm/Hg (30-55) 05/23/17 00:04 HCO3 26.6 mmol/L (21-28) 05/22/17 16:05 ABG pH 7.40 (7.35-7.45) 05/22/17 16:05 ABG Total CO2 27.9 mmol.L (22-28) 05/22/17 16:05 ABG O2 Saturation 97.5 % (95-98) 05/22/17 16:05 ABG O2 Content 15.1 ML/dl (15-23) 05/22/17 16:05 ABG Base Excess 1.5 mmol/L (-2.0-3.0) 05/22/17 16:05 ABG Hemoglobin 11.7 g/dL (11.7-17.4) 05/22/17 16:05 ABG Carboxyhemoglobin 6.7 % (0.5-1.5) H 05/22/17 16:05 POC ABG HHb (Measured) 2.3 % (0-5) 05/22/17 16:05 ABG Methemoglobin 0.5 % (0.0-3.0) 05/22/17 16:05 ABG O2 Capacity 15.5 mL/dl (16-24) L 05/22/17 16:05 VBG pH 7.32 (7.32-7.43) 05/23/17 00:04 VBG pCO2 65.0 (40-60) H 05/23/17 00:04 VBG HCO3 33.5 mmol/l (21-28) H 05/23/17 00:04 VBG Total CO2 35.5 mmol.L (22-28) H 05/23/17 00:04 VBG O2 Sat (Calc) 85.7 % (40-65) H 05/23/17 00:04 VBG Base Excess 5.3 mmol/L (0.0-2.0) H 05/23/17 00:04 VBG Potassium 4.3 mmol/L (3.6-5.2) 05/23/17 00:04 Hgb O2 Saturation 90.5 % (95.0-98.0) L 05/22/17 16:05 Sodium 142.0 mmol/L (132-148) 05/23/17 00:04 Chloride 107.0 mmol/L (98-107) 05/23/17 00:04 Glucose 91 mg/dl (75-110) 05/23/17 00:04 Lactate 1.0 mmol/L (0.7-2.1) 05/23/17 00:04 FiO2 21.0 % 05/23/17 00:04 Sodium 142 mmol/L (132-148) 05/23/17 09:15 Potassium 4.1 mmol/L (3.6-5.0) 05/23/17 09:15 Chloride 105 mmol/L (95-110) 05/23/17 09:15 Carbon Dioxide 32 mmol/L (21-33) 05/23/17 09:15 Anion Gap 9 (10-20) L 05/23/17 09:15 BUN 10 mg/dL (7-21) 05/23/17 09:15 Creatinine 0.8 mg/dL (0.5-1.4) 05/23/17 09:15 Est GFR ( Amer) > 60 05/23/17 09:15 Est GFR (Non-Af Amer) > 60 05/23/17 09:15 Random Glucose 100 mg/dL (70-110) 05/23/17 09:15 Calcium 8.9 mg/dL (8.4-10.5) 05/23/17 09:15 Phosphorus 2.8 mg/dL (2.5-4.5) 05/22/17 15:30 Magnesium 1.9 mg/dL (1.7-2.2) 05/22/17 15:30 Total Bilirubin 1.1 mg/dL (0.2-1.3) 05/23/17 09:15 AST 43 U/L (17-59) 05/23/17 09:15 ALT 46 U/L (7-56) 05/23/17 09:15 Alkaline Phosphatase 70 U/L (38-126) 05/23/17 09:15 Ammonia 11 umol/L (9-33) 05/23/17 09:15 Total Protein 6.7 g/dL (5.8-8.3) 05/23/17 09:15 Albumin 3.7 g/dL (3.0-4.8) 05/23/17 09:15 Globulin 3.0 gm/dL 05/23/17 09:15 Albumin/Globulin Ratio 1.2 (1.1-1.8) 05/23/17 09:15 Venous Blood Potassium 4.3 mmol/L (3.6-5.2) 05/23/17 00:04 Salicylates < 1 mg/dL (2.0-20.0) L 05/22/17 15:30 Urine Opiates Screen Negative (NEGATIVE) 05/23/17 00:04 Urine Methadone Screen Negative (NEGATIVE) 05/23/17 00:04 Acetaminophen < 10.0 ug/ml (10.0-20.0) L 05/22/17 15:30 Ur Barbiturates Screen Negative (NEGATIVE) 05/23/17 00:04 Ur Phencyclidine Scrn Negative (NEGATIVE) 05/23/17 00:04 Ur Amphetamines Screen Negative (NEGATIVE) 05/23/17 00:04 U Benzodiazepines Scrn Negative (NEGATIVE) 05/23/17 00:04 U Oth Cocaine Metabols Negative (NEGATIVE) 05/23/17 00:04 U Cannabinoids Screen Negative (NEGATIVE) 05/23/17 00:04 Alcohol, Quantitative 43 mg/dL (0-10) H 05/22/17 15:30 - Hospital Course Hospital Course: 47M with PMH hepatits C, polysubastance use, drug overdose requiring intubation in the past, who initially presented to the ER for AMS. Patient was found on the street, responsive only to painful stimuli. Last night, patient stated that he chewed up oxycodone tablet, but this morning, cannot recall what he used yesterday. In ED, VS were stable, CBC and CMP unremarkable, AST/ALT were normal , EtOH 43, UDS neg, ABG shows pH 7.4 with no acidosis/alkalosis/hypoxia, head CT showed no acute intracranial abnormalities. Today, ammonia level was normal, INR was normal, and CBC and CMP were again unremarkable. He appears more awake and alert than yesterday, but is still lethargic, though arousable and responsive to verbal stimuli, obeying simple and complex commands, without any apparent focal neurological deficits. He is oriented to person, place, and time. He remains an active drug user and admits to continued use of cocaine and heroin. He has no particular complaints, and would like to go home. Patient was strongly encouraged to seek help and counseling, discontinue drug use, and to admit himself to a rehab facility. Patient wanted to leave AMA, all benefits of staying and risks of leaving, including withdrawal, DTs, seizures, and were discussed, and patient verbalized understanding, and signed out. Patient was seen, discussed, and reviewed with attending. Discharge Exam - Head Exam Head Exam: ATRAUMATIC, NORMOCEPHALIC - Eye Exam Eye Exam: EOMI, PERRL Pupil Exam: Miosis - ENT Exam ENT Exam: Mucous Membranes Moist, Normal Oropharynx - Neck Exam Neck exam: Normal Inspection - Respiratory Exam Respiratory Exam: NORMAL BREATHING PATTERN. absent: Rales, Rhonchi, Wheezes - Cardiovascular Exam Cardiovascular Exam: RRR, +S1, +S2 - GI/Abdominal Exam GI & Abdominal Exam: Normal Bowel Sounds. absent: Soft, Tenderness - Extremities Exam Extremities exam: normal inspection - Neurological Exam Neurological exam: Alert, CN II-XII Intact, Oriented x3 - Psychiatric Exam Psychiatric exam: Normal Affect, Normal Mood - Skin Skin Exam: Dry, Intact Discharge Plan - Follow Up Plan Condition: FAIR Disposition: AGAINST MEDICAL ADVICE Additional Instructions: Patient left AMA
[2017-05-23 10:57] VITALS: PULSE 66
--- NOTE | 2017-05-24 07:25 | CARD ---
APPROVED REPORT EKG Measurement Heart [id number] <Conclusion> Normal sinus rhythm Normal ECG
[2017-05-24] MEDS ORDERED: Enoxaparin 30 mg Syringe SC SCH (20:00)
== END 2017-05-23 11:27 | disposition left against medical advice (07) ==
LOC: ED 15:20 → EROBSV 15:54 → ERH 22:09 → 2RNO 05-23 00:10
PROVIDERS: ADMIT Internal Medicine; ATTEND Internal Medicine
DX: R41.82 Altered mental status, unspecified (principal); F10.239 Alcohol dependence with withdrawal, unspecified; Y90.2 Blood alcohol level of 40-59 mg/100 ml; F19.20 Other psychoactive substance dependence, uncomplicated; B19.20 Unspecified viral hepatitis C without hepatic coma; F31.9 Bipolar disorder, unspecified; Z98.84 Bariatric surgery status
CPT/HCPCS: 36415; 70450; 80053; 82140; 82803; 83735; 84100; 85025; 85610; 86592; 86703; 93005; 96360; 99285; G0378; G0480; J2310; J7040

== ENCOUNTER 2017-08-14 15:18 | Emergency (ER) | payer MEDICARE, OTHER ==
[2017-08-14 15:18] VITALS: BMI 25.8
[2017-08-14 15:27] VITALS: TEMP 97.9; O2SAT 100
--- NOTE | 2017-08-14 16:49 | ED PDOC ---
Arrival/HPI - General Historian: Patient - History of Present Illness Time/Duration: 4-6 hours Symptom Onset: Sudden Activities at Onset: Rest, Light Context: Home <Cesar Branch - Last Filed: 08/14/17 22:14> <Estebanjulieth Feliberto - Last Filed: 08/15/17 11:53> - General Chief Complaint: Alcohol Ingestion Time Seen by Provider: 08/14/17 15:24 - History of Present Illness Narrative History of Present Illness (Text): 08/14/17 16:43 Mr. Feliciano is a 47 year old man with a past medical history significant for polysubstance abuse, alcohol withdrawal who presents to the [facility] after a fall. 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 Patient also endorses that he had one beer and two pills. Patient originally stated that these were Xanax but then stated that that was a mistake but could not remember what these pills were. Patient denies fever, chills, headache, changes in his vision, epistaxis, neck pain, chest pain, SOB, cough, abdominal pain, N/V/D/C, burning with urination, rash, back pain, or any numbness/tingling/weakness of any extremity. (Cesar Branch) Past Medical History - Provider Review Nursing Documentation Reviewed: Yes - Travel History Have you recently traveled outside [place] w/in the past 3 mons?: No - Past History Past History: No Previous - Infectious Disease Hx of Infectious Diseases: None - Tetanus Immunization Tetanus Immunization: Unknown - Past Medical History Past Medical History: Unable to Obtain - Cardiac Hx Cardiac Disorders: No - Pulmonary Hx Respiratory Disorders: Yes Other/Comment: Acute respiratory failure - Neurological Hx Neurological Disorder: Yes Other/Comment: Altered mental status - HEENT Hx HEENT Disorder: No - Renal Hx Renal Disorder: No - Endocrine/Metabolic Hx Endocrine Disorders: No - Hematological/Oncological Hx Blood Disorders: Yes Hx Hepatitis C: Yes - Integumentary Hx Dermatological Disorder: No - Musculoskeletal/Rheumatological Hx Musculoskeletal Disorders: Yes Hx Falls: No Hx Rhabdomyolysis: Yes - Gastrointestinal Hx Gastrointestinal Disorders: No - Genitourinary/Gynecological Hx Genitourinary Disorders: No - Psychiatric Hx Psychophysiologic Disorder: Yes Hx Anxiety: Yes Hx Bipolar Disorder: Yes Hx Depression: Yes Hx Substance Use: Yes Other/Comment: Substance abuse - Past Surgical History Past Surgical History: Unable to Obtain - Surgical History Hx Gastric Bypass Surgery: Yes Other/Comment: Back and Rotator cuff sx. - Anesthesia Hx Anesthesia: Yes Hx Anesthesia Reactions: Yes (severe vomiting) Hx Malignant Hyperthermia: No - Suicidal Assessment Feels Threatened In Home Enviroment: No <Cesar Branch - Last Filed: 08/14/17 22:14> Family/Social History - Physician Review Nursing Documentation Reviewed: Yes Family/Social History: No Known Family HX Smoking Status: Unknown If Ever Smoked Hx Alcohol Use: Yes Hx Substance Use: Yes Substance used: oxy <Cesar Branch - Last Filed: 08/14/17 22:14> Allergies/Home Meds <Cesar Branch - Last Filed: 08/14/17 22:14> <Feliberto Almanza DO - Last Filed: 08/15/17 11:53> Allergies/Adverse Reactions: Allergies No Known Allergies Allergy (Verified 08/14/17 15:29) Home Medications: Home Meds Medication Instructions Recorded Confirmed buPROPion XL [Wellbutrin XL] 150 mg PO DAILY 12/12/16 05/22/17 Buprenorphine HCl/Naloxone HCl 1 film SL BID 02/22/17 05/22/17 [Suboxone 8 mg-2 mg Sl Film] Carisoprodol [Soma] 350 mg PO QID PRN 02/22/17 05/22/17 Fluoxetine HCl [Prozac] 40 mg PO DAILY 02/22/17 05/22/17 Ibuprofen [Motrin Tab] 800 mg PO TID PRN 02/22/17 05/22/17 OLANZapine [Zyprexa] 10 mg PO DAILY 02/22/17 05/22/17 Omeprazole [Omeprazole] 40 mg PO DAILY 02/22/17 05/22/17 Pregabalin [Lyrica] 100 mg PO TID 02/22/17 05/22/17 QUEtiapine [SEROquel] 100 mg PO HS 02/22/17 05/22/17 clonazePAM [clonAZEPAM] 1 mg PO QID 02/22/17 05/22/17 Review of Systems - Physician Review All systems were reviewed & negative as marked: Yes - Review of Systems Constitutional: Normal. absent: Fevers, Night Sweats Eyes: Normal. absent: Vision Changes, Eye Pain ENT: Normal. absent: Hearing Changes, Tinnitus, Epistaxis Respiratory: Normal. absent: SOB, Cough Cardiovascular: Normal. absent: Chest Pain, Palpitations, Syncope Gastrointestinal: Normal. absent: Abdominal Pain, Constipation, Diarrhea, Nausea, Vomiting Genitourinary Male: Normal. absent: Dysuria Musculoskeletal: Normal. absent: Arthralgias, Back Pain, Neck Pain, Joint Swelling Skin: Normal. absent: Rash Neurological: Normal. absent: Headache, Dizziness Endocrine: Normal Hemo/Lymphatic: Normal Psychiatric: Normal <Cesar Branch - Last Filed: 08/14/17 22:14> Physical Exam Vital Signs Reviewed: Yes Temperature: Afebrile Blood Pressure: Normal Pulse: Regular Respiratory Rate: Normal Appearance: Positive for: Well-Appearing, Non-Toxic, Comfortable Pain Distress: None Mental Status: Positive for: Alert and Oriented X 3 Finger Stick Blood Glucose: 95 - Systems Exam Head: Present: Normocephalic, Laceration (1-2mm on posterior scalp). No: Atraumatic Pupils: Present: PERRL Extroacular Muscles: Present: EOMI Conjunctiva: Present: Normal Mouth: Present: Moist Mucous Membranes Neck: Present: Normal Range of Motion, Trachea Midline. No: Meningeal Signs, MIDLINE TENDERNESS, Paraspinal Tenderness, JVD, Lymphadenopathy Respiratory/Chest: Present: Clear to Auscultation, Good Air Exchange. No: Respiratory Distress, Accessory Muscle Use, Wheezes, Rales, Retracting, Rhonchi , Tachypneic Cardiovascular: Present: Regular Rate and Rhythm, Normal S1, S2, Peripheal Pulses Present. No: Murmurs, Irregular Rhythm, Tachycardic, Bradycardic Abdomen: Present: Normal Bowel Sounds. No: Tenderness, Distention, Peritoneal Signs Back: Present: Normal Inspection. No: CVA Tenderness, Midline Tenderness, Paraspinal Tenderness Upper Extremity: Present: Normal Inspection. No: Cyanosis, Edema Lower Extremity: Present: Normal Inspection. No: Edema Neurological: Present: GCS=15, CN II-XII Intact, Speech Normal Skin: Present: Warm, Dry, Normal Color. No: Rashes Lymphatic: No: Cervical Adenopathy Psychiatric: Present: Alert, Oriented x 3, Normal Insight, Normal Concentration <Cesar Branch - Last Filed: 08/14/17 22:14> Vital Signs Temp Pulse Resp BP Pulse Ox 11/25/17 23:00 85 17 122/50 L 100 08/14/17 18:25 91 H 16 127/68 100 08/14/17 16:34 77 17 125/87 100 08/14/17 15:27 97.9 F 90 20 123/78 100 Medical Decision Making <Cesar Branch - Last Filed: 08/14/17 22:14> <Feliberto Almanza DO - Last Filed: 08/15/17 11:53> ED Course and Treatment: 08/14/17 16:56 Impression: 47 year old man with a past medical history significant for polysubstance abuse, alcohol withdrawal who presents to the [facility] after a fall Plan: -CBC, CMP, UA -CT head -UDS and Alcohol level -Reassess and disposition Prior Visits: Patient seen and evaluated on multiple occasions for ETOH abuse/withdrawal 08/14/17 22:14 Upon reevaluation, patient alert and oriented to person place time and event, HDS and stating that he would like to go home. (Cesar Branch) 08/14/17 17:24 Patient Seen With Resident: In agreement with resident note which contains more details about the patient. Patient was seen and evaluated with resident. Came up with plan and treatment together. A 47 year old male whose past medical history includes polysubstance abuse and alcohol withdrawal who is brought into the emergency department for a fall. Treatment plan includes a head CT, labs, UDS. The patient has been seen in the emergency department on multiple occasions for etoh abuse and withdrawal. (Feliberto Almanza DO) - Lab Interpretations Lab Results: 08/14/17 17:56 08/14/17 17:56 Lab Results 08/14/17 18:20: Urine Opiates Screen Positive H, Urine Methadone Screen Negative , Ur Barbiturates Screen Negative, Ur Phencyclidine Scrn Negative, Ur Amphetamines Screen Negative, U Benzodiazepines Scrn Positive, U Oth Cocaine Metabols Positive H, U Cannabinoids Screen Negative 08/14/17 17:56: Alcohol, Quantitative < 10 08/14/17 17:56: Sodium 139, Potassium 4.6, Chloride 104, Carbon Dioxide 23, Anion Gap 17, BUN 8, Creatinine 0.9, Est GFR ( Amer) > 60, Est GFR (Non- Af Amer) > 60, Random Glucose 96, Calcium 9.5, Total Bilirubin 1.0, AST 38, ALT 28, Alkaline Phosphatase 90, Total Protein 7.4, Albumin 4.3, Globulin 3.1, Albumin/Globulin Ratio 1.4 08/14/17 17:56: WBC 4.7, RBC 5.04, Hgb 16.2 D, Hct 47.4, MCV 94.0, MCH 32.1, MCHC 34.2, RDW 12.2, Plt Count 184, MPV 11.0, Gran % 76.0 H, Lymph % (Auto) 18.3 L, [place] % (Auto) 5.7, Eos % (Auto) 0.0 L, Baso % (Auto) 0.0, Gran # 3.57, Lymph # 0.9 L, [place]comb # 0.3, Eos # 0.0, Baso # 0.00 - RAD Interpretation Radiology Orders: 08/14/17 15:57 HEAD W/O CONTRAST [CT] Stat <Cesar Branch - Last Filed: 08/14/17 22:14> - PA / RN ORTHO / Resident Statement CECILIA has reviewed & agrees with the documentation as recorded. / has examined the patient and agrees with the treatment plan. - Scribe Statement The provider has reviewed the documentation as recorded by the Scribe <Feliberto Almanza DO - Last Filed: 08/15/17 11:53> - Scribe Statement Tori Duarte Provider Scribe Attestation: All medical record entries made by the Scribe were at my direction and personally dictated by me. I have reviewed the chart and agree that the record accurately reflects my personal performance of the history, physical exam, medical decision making, and the department course for this patient. I have also personally directed, reviewed, and agree with the discharge instructions and disposition. (Feliberto Almanza DO) Disposition/Present on Arrival - Present on Arrival Any Indicators Present on Arrival: No History of DVT/PE: No History of Uncontrolled Diabetes: No Urinary Catheter: No History of Decub. Ulcer: No History Surgical Site Infection Following: None - Disposition Have Diagnosis and Disposition been Completed?: Yes Disposition Time: 22:15 Patient Plan: Discharge <Cesar Branch - Last Filed: 08/14/17 22:14> <Feliberto Almanza DO - Last Filed: 08/15/17 11:53> - Disposition Diagnosis: Drug abuse Disposition: HOME/ ROUTINE Condition: STABLE Discharge Instructions (ExitCare): Benzodiazepine Abuse (ED), Cocaine Abuse (ED ), Narcotic Abuse (ED) Additional Instructions: Mr. Feliciano, thank you for letting us take care of you today. Your provider was Dr. Almanza. You were treated for polysubstance abuse. The emergency medical care you received today was directed at your acute symptoms. If you were prescribed any medication, please fill it and take as directed. It may take several days for your symptoms to resolve. Return to the Emergency Department if your symptoms worsen, do not improve, or if you have any other problems. Please contact your doctor or call one of the physicians/clinics you have been referred to that are listed on the Patient Visit Information form that is included in your discharge packet. Bring any paperwork you were given at discharge with you along with any medications you are taking to your follow up visit. Our treatment cannot replace ongoing medical care by a primary care provider (PCP) outside of the emergency department. PLEASE FOLLOW UP WITH YOUR PRIMARY CARE DOCTOR WITHIN ONE WEEK Thank you for allowing the [facility] team to be part of your care today. If you had an X-Ray or CT scan: A Radiologist will review the ED reading if any change in treatment is needed we will contact you. Referrals: Cary Oneill, [Primary Care Provider] - Follow up with primary Forms: [employer] (Bulgarian)
[2017-08-14 18:03] LABS: GRAN # 3.57 (1.4-6.5); HEMATOCRIT 47.4 % (42.0-52.0); LYMPH # 0.9 (1.2-3.4); LYMPH % 18.3 % (22.0-35.0); MEAN CORPUSCULAR HEMOGLOBIN 32.1 pg (25.0-35.0); MEAN CORPUSCULAR HGB CONC 34.2 g/dl (31.0-37.0); MONO # 0.3 (0.1-0.6); MONO % 5.7 % (1.0-6.0); RED CELL DISTRIBUTION WIDTH 12.2 % (11.5-14.5); WHITE BLOOD COUNT 4.7 10^3/ul (4.5-11.0)
[2017-08-14 18:16] LABS: ALB/GLOB RATIO 1.4 (1.1-1.8); ALKALINE PHOSPHATASE 90 U/L (38-126); ALT/SGPT 28 U/L (7-56); AST/SGOT 38 U/L (17-59); BLOOD UREA NITROGEN 8 mg/dL (7-21); CALCIUM 9.5 mg/dL (8.4-10.5); CARBON DIOXIDE 23 mmol/L (21-33); CHLORIDE 104 mmol/L (98-107); GFR AFRICAN-AMERICAN > 60; GLUCOSE,RANDOM 96 mg/dL (70-110); POTASSIUM 4.6 mmol/L (3.6-5.0); SODIUM 139 mmol/L (132-148); TOTAL PROTEIN 7.4 g/dL (5.8-8.3)
--- NOTE | 2017-08-14 18:39 | CT ---
EXAM: CT Head Without Intravenous Contrast CLINICAL HISTORY: 47 years old, male; Injury or trauma; Fall; Initial encounter; Concussion / head injury; Additional info: S/P fall - R/O bleed TECHNIQUE: Axial computed tomography images of the head/brain without intravenous contrast. All CT scans at this facility use one or more dose reduction techniques, viz.: automated exposure control; ma/kV adjustment per patient size (including targeted exams where dose is matched to indication; i.e. head); or iterative reconstruction technique. COMPARISON: CT - HEAD W/O CONTRAST 2017-05-22 16:54 FINDINGS: Brain: Mild atrophy. No intracranial hemorrhage. No mass. No edema. Ventricles: No hydrocephalus. Bones/joints: No acute fracture. Soft tissues: Unremarkable. Sinuses: No acute sinusitis. Mastoid air cells: No mastoid effusion. Orbits: Unremarkable as visualized. IMPRESSION: 1. No intracranial hemorrhage.
[2017-08-14 23:01] VITALS: BP 122/50; PULSE 85; RESP 17
== END 2017-08-14 23:03 | disposition home or self-care (01) ==
LOC: ED 15:18
DX: F19.10 Other psychoactive substance abuse, uncomplicated (principal)
CPT/HCPCS: 70450; 80053; 85025; 99285; G0480

== ENCOUNTER 2017-10-02 13:17 | Emergency (ER) | payer MEDICARE ==
[2017-10-02 13:24] VITALS: BMI 22.9
[2017-10-02] MEDS ORDERED: Naloxone 0.4 mg/ml Inj (Adult) ONE ×2 (13:25→13:26)
[2017-10-02] MEDS ORDERED: Naloxone 0.4 mg/ml Inj (Adult) IVP STA (13:26)
[2017-10-02] MEDS ORDERED: Sodium Chloride 0.9% 500 ML IV STA (13:52)
[2017-10-02 13:58] LABS: BASO # 0.01 K/mm3 (0.0-2.0); BASO % 0.1 % (0.0-3.0); EOS % 0.3 % (1.5-5.0); GRAN # 5.5 (1.4-6.5); HEMOGLOBIN 14.7 g/dL (14.0-18.0); LYMPH # 1.4 (1.2-3.4); LYMPH % 18.5 % (22.0-35.0); MEAN CELL VOLUME 94.3 fl (80.0-105.0); MEAN CORPUSCULAR HEMOGLOBIN 31.1 pg (25.0-35.0); MEAN PLATELET VOLUME 10.7 fl (7.0-11.0); MONO # 0.6 (0.1-0.6); MONO % 8.1 % (1.0-6.0); RBC 4.72 10^6/uL (3.5-6.1); RED CELL DISTRIBUTION WIDTH 13.3 % (11.5-14.5); WHITE BLOOD COUNT 7.5 10^3/ul (4.5-11.0)
[2017-10-02 14:16] LABS: ALB/GLOB RATIO 1.3 (1.1-1.8); ALBUMIN 3.7 g/dL (3.0-4.8); ALT/SGPT 27 U/L (7-56); AST/SGOT 28 U/L (17-59); BLOOD UREA NITROGEN 8 mg/dL (7-21); GFR AFRICAN-AMERICAN > 60; GFR NON-AFRICAN AMERICAN > 60
[2017-10-02 14:25] LABS: BARBITURATES, UR NEGATIVE (NEGATIVE); BENZODIAZEPINES, UR NEGATIVE (NEGATIVE); OPIATES, UR NEGATIVE (NEGATIVE); PHENCYCLIDINE, UR NEGATIVE (NEGATIVE)
--- NOTE | 2017-10-02 14:42 | ED PDOC ---
Arrival/HPI - General Chief Complaint: Substance Abuse Time Seen by Provider: 10/02/17 13:22 Historian: EMS - History of Present Illness Narrative History of Present Illness (Text): 10/02/17 14:30 A 47 year old male, whose past medical history includes polysubstance abuse and alcohol withdrawal, is brought in by EMS for possible overdose. Patient was found unconscious in hallway of apartment building. Prior to arrival, patient was given 0.8 Narcan 20 g in left arm. No PMD Past Medical History - Provider Review Nursing Documentation Reviewed: Yes - Past History Past History: No Previous - Infectious Disease Hx of Infectious Diseases: None - Tetanus Immunization Tetanus Immunization: Unknown - Past Medical History Past Medical History: Unable to Obtain - Cardiac Hx Cardiac Disorders: No - Pulmonary Hx Respiratory Disorders: Yes Other/Comment: Acute respiratory failure - Neurological Hx Neurological Disorder: Yes Other/Comment: Altered mental status - HEENT Hx HEENT Disorder: No - Renal Hx Renal Disorder: No - Endocrine/Metabolic Hx Endocrine Disorders: No - Hematological/Oncological Hx Blood Disorders: Yes Hx Hepatitis C: Yes - Integumentary Hx Dermatological Disorder: No - Musculoskeletal/Rheumatological Hx Musculoskeletal Disorders: Yes Hx Falls: No Hx Rhabdomyolysis: Yes - Gastrointestinal Hx Gastrointestinal Disorders: No - Genitourinary/Gynecological Hx Genitourinary Disorders: No - Psychiatric Hx Psychophysiologic Disorder: Yes Hx Anxiety: Yes Hx Bipolar Disorder: Yes Hx Depression: Yes Hx Substance Use: Yes Other/Comment: Substance abuse - Past Surgical History Past Surgical History: Unable to Obtain - Surgical History Hx Gastric Bypass Surgery: Yes Other/Comment: Back and Rotator cuff sx. - Anesthesia Hx Anesthesia: Yes Hx Anesthesia Reactions: Yes (severe vomiting) Hx Malignant Hyperthermia: No - Suicidal Assessment Feels Threatened In Home Enviroment: No Family/Social History - Physician Review Nursing Documentation Reviewed: Yes Family/Social History: No Known Family HX Smoking Status: Unknown If Ever Smoked Hx Alcohol Use: Yes Hx Substance Use: Yes Substance used: oxy Allergies/Home Meds Allergies/Adverse Reactions: Allergies No Known Allergies Allergy (Verified 10/02/17 13:24) Home Medications: Home Meds Medication Instructions Recorded Confirmed Carisoprodol [Soma] 350 mg PO Q12 02/22/17 10/02/17 Ibuprofen [Motrin Tab] 800 mg PO TID PRN 02/22/17 10/02/17 QUEtiapine [SEROquel] 100 mg PO HS 02/22/17 10/02/17 Buprenorphine Hydrochloride 8 mg SL BID 10/02/17 10/02/17 [Subutex] Gabapentin [Neurontin] 800 mg PO QID 10/02/17 10/02/17 Physical Exam Vital Signs Temp Pulse Resp BP Pulse Ox 10/02/17 17:40 98.0 F 83 20 102/72 98 10/02/17 16:07 85 16 109/71 99 10/02/17 13:27 98.7 F 105 H 17 120/78 97 10/02/17 13:25 111 H 16 120/78 96 Medical Decision Making ED Course and Treatment: 10/02/17 14:41 Impression: 47 year old male brought in for possible overdose. Plan: -- EKG -- Narcan -- IV Fluids -- Reassess and disposition Prior Visits: Notes and results from previous visits were reviewed. Patient was last seen in the emergency department on P.V.: 08/14/2017 for fall. Patient was discharged home. Progress Notes: Patient only responds to painful stimuli. Patient likely to have overdosed. CT Head will be ordered to consider trauma. 10/02/2017 15:[address] IMPRESSION: No acute findings. Dictator: Bryan Lara MD 10/02/17 15:52 Patient is currently more responsive, but still very lethargic. 10/02/17 20:47 Patient currently awake and alert. States having taken 8 mg of Xanax and was only trying to get high, not trying to harm himself. 10/02/17 22:33 awake and ambulatory' insists on discharge home. - Lab Interpretations Lab Results: 10/02/17 13:37 10/02/17 13:37 Lab Results 10/02/17 13:50: Urine Opiates Screen Negative, Urine Methadone Screen Negative, Ur Barbiturates Screen Negative, Ur Phencyclidine Scrn Negative, Ur Amphetamines Screen Negative, U Benzodiazepines Scrn Negative, U Oth Cocaine Metabols Negative, U Cannabinoids Screen Negative 10/02/17 13:37: Alcohol, Quantitative < 10 10/02/17 13:37: Sodium 139, Potassium 3.8, Chloride 102, Carbon Dioxide 27, Anion Gap 14, BUN 8, Creatinine 0.9, Est GFR ( Amer) > 60, Est GFR (Non- Af Amer) > 60, Random Glucose 118 H, Calcium 9.0, Total Bilirubin 0.7, AST 28, ALT 27, Alkaline Phosphatase 48, Total Protein 6.6, Albumin 3.7, Globulin 2.8, Albumin/Globulin Ratio 1.3 10/02/17 13:37: WBC 7.5 D, RBC 4.72, Hgb 14.7, Hct 44.5, MCV 94.3, MCH 31.1, MCHC 33.0, RDW 13.3, Plt Count 200, MPV 10.7, Gran % 73.0 H, Lymph % (Auto) 18.5 L, [place] % (Auto) 8.1 H, Eos % (Auto) 0.3 L, Baso % (Auto) 0.1, Gran # 5.50 , Lymph # 1.4, [place] # 0.6, Eos # 0.0, Baso # 0.01 - RAD Interpretation Radiology Orders: 10/02/17 14:41 HEAD W/O CONTRAST [CT] Stat - Medication Orders Current Medication Orders: Discontinued Medications Sodium Chloride (Sodium Chloride 0.9%) 500 mls @ 999 mls/hr IV .Q31M STA Stop: 10/02/17 14:22 Last Admin: 10/02/17 13:55 Dose: 999 mls/hr eMAR Start Stop Document 10/02/17 13:55 [email or web address] (Rec: 10/02/17 13:55 [email or web address] [id number]) Intravenous Solution Start Date 10/02/17 Start Time 13:55 End Date 10/02/17 Naloxone HCl (Narcan) 0.8 mg IVP STAT STA Stop: 10/02/17 13:27 Last Admin: 10/02/17 13:40 Dose: 0.8 mg IVP Administration Document 10/02/17 13:40 [email or web address] (Rec: 10/02/17 13:40 [email or web address] [id number]) Charges for Administration # of IVP Administrations 1 - Scribe Statement The provider has reviewed the documentation as recorded by the Haleyibmily Oneil Provider Scribe Attestation: All medical record entries made by the Scribe were at my direction and personally dictated by me. I have reviewed the chart and agree that the record accurately reflects my personal performance of the history, physical exam, medical decision making, and the department course for this patient. I have also personally directed, reviewed, and agree with the discharge instructions and disposition. Disposition/Present on Arrival - Present on Arrival Any Indicators Present on Arrival: No History of DVT/PE: No History of Uncontrolled Diabetes: No Urinary Catheter: No History of Decub. Ulcer: No History Surgical Site Infection Following: None - Disposition Have Diagnosis and Disposition been Completed?: Yes Diagnosis: Drug overdose Disposition: HOME/ ROUTINE Disposition Time: 23:00 Patient Plan: Discharge Condition: IMPROVED Referrals: Cary Oneill, [Primary Care Provider] - Follow up with primary Forms: [employer] (Tuvaluan)
--- NOTE | 2017-10-02 15:16 | CT ---
PROCEDURE: CT HEAD WITHOUT CONTRAST. HISTORY: altered mental status COMPARISON: None available. TECHNIQUE: Axial computed tomography images were obtained through the head/brain without intravenous contrast. Radiation dose: Total exam DLP = 982 mGy-cm. This CT exam was performed using one or more of the following dose reduction techniques: Automated exposure control, adjustment of the mA and/or kV according to patient size, and/or use of iterative reconstruction technique. FINDINGS: HEMORRHAGE: No intracranial hemorrhage. BRAIN: No mass effect or edema. No atrophy or chronic microvascular ischemic changes. VENTRICLES: Unremarkable. No hydrocephalus. CALVARIUM: Unremarkable. PARANASAL SINUSES: Unremarkable as visualized. No significant inflammatory changes. MASTOID AIR CELLS: Unremarkable as visualized. No inflammatory changes. OTHER FINDINGS: None. IMPRESSION: No acute findings
[2017-10-02 17:41] VITALS: TEMP 98
[2017-10-03 03:05] VITALS: BP 142/72; PULSE 82; RESP 20; O2SAT 98
--- NOTE | 2017-10-03 20:57 | CARD ---
APPROVED REPORT EKG Measurement Heart [id number] ID [id number] <Conclusion> Sinus tachycardia Otherwise normal ECG
== END 2017-10-03 00:29 | disposition home or self-care (01) ==
LOC: ED 13:17
DX: T50.991A Poisoning by other drugs, medicaments and biological substances, accidental (unintentional), initial encounter (principal); Y92.89 Other specified places as the place of occurrence of the external cause
CPT/HCPCS: 70450; 80053; 85025; 93005; 96374; 99285; G0480; J2310; J7040